=== PATIENT | female | born 1975 | race African-American/Black ===

== ENCOUNTER 2023-05-16 15:22 | Emergency (ER) | payer OTHER, SELFPAY ==
--- OUTSIDE RECORDS SUMMARY | 2023-05-16 15:29 | XMS REPORT | Continuity of Care Document ---
:1975 Author Organization [facility] t Address [address] [facility] [address] [place] [address] Care Team Providers Name Role Phone José Mcrae MD Primary Care Physician Alisson Pederson Attending Clinician Unavailable Danilo Solomon DO Attending Clinician Dee Tai MA Attending Clinician Unavailable Kenyatta Yan Attending Clinician Unavailable Analilia Medrano MD Attending Clinician Minh Boothe Attending Clinician Unavailable Jory Alcala MA Attending Clinician Unavailable Maryjane Zacarias CPhT Attending Clinician Unavailable Jihan Delaney MD Attending Clinician Priscila Avelar NP Attending Clinician Hilda Paul MA Attending Clinician Unavailable Gorge Rogers Attending Clinician Unavailable Vickey Jenkins Attending Clinician Merlyn Toledo MA Attending Clinician Unavailable Jaime Bryan Attending Clinician CHRIS Attending Clinician Unavailable Vivian Anne SANCHEZ Attending Clinician [phone] Zhou Parson Attending Clinician Unavailable Sunshine ZARAGOZA, Dahiana Attending Clinician Unavailable Yemi Desai MD Attending Clinician [phone] Colby Do Attending Clinician Unavailable HILDA HOSKINS Attending Clinician Unavailable TAMMI BENTLEY Attending Clinician Unavailable Hailey Mcfarlane MA Attending Clinician Unavailable Delilah Liu MD, I. Attending Clinician Nadia Allen LVN Attending Clinician Unavailable Benita Prather MA Attending Clinician Unavailable Carolin Siddiqui MA Attending Clinician Unavailable Paul Linares PA-C Attending Clinician Dagmar Sanchez Attending Clinician Unavailable Babar ZARAGOZA, Thomas Attending Clinician Unavailable BERNIE PAYTON Attending Clinician Unavailable MD АЛЕКСАНДР SIERRA Attending Clinician Unavailable MD BARBARA JUAREZ Attending Clinician Unavailable BARBARA JUAREZ Attending Clinician Unavailable GORGE VARNER Attending Clinician Unavailable Steph Marquez Attending Clinician Unavailable NAT GATES Attending Clinician Unavailable UNDEFINED Admitting Clinician Unavailable Jeremías Onofre Admitting Clinician Unavailable CHRIS Admitting Clinician Unavailable [facility] Admitting Clinician Unavailable ANKIT VILLALOBOS Admitting Clinician Unavailable MD ANKIT VILLALOBOS Admitting Clinician Unavailable Physician, No Primary or Family Admitting Clinician UnavailMD BARBARA Araujo Admitting Clinician Unavailable Steph Marquez Admitting Clinician Unavailable Payers Payer Name Policy Type Policy Number Effective Date Expiration Date S ource Problems Condition Condition Condition Status Onset Resolution Last Treating Co mments Source Name Details Category Date Date Treatment Clinician Date Anxiety Anxiety Disease Active Methodi about about 10-10 [facility] 00:00: Hospita 00 l Spina Spina Disease Active 2020-09 Overview: Method i bifida of bifida of 10-02 Formattin s t lumbar lumbar 00:00: g of this Hospita region region 00 note l without without might be hydrocepha hydrocepha different loli loli from the original. Found in testing. 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 Added automatic ally from request for surgery [id number] Superficia Superficia Disease Active Last M ethodi l femoral l femoral 10-15 Assessmen s t artery artery 00:00: t & Plan: Hospita occlusion occlusion 00 Formattin l g of this note might be different from the original. Doing well. Has some mild leg pain symptoms, but more neuropath ic. 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 06-02 headache, headache, 00:00: Hosp ina not not 00 l intractabl intractabl e e Gastritis Gastritis Disease Active Met hodi 06-02 st 00:00: Hospita 00 l Diabetes Diabetes Disease Active Metho di mellitus mellitus 06-12 st 00:00: Hospita 00 l Seizures Seizures Disease Active Metho di st Hospita l PTSD PTSD Disease Active Methodi (post-trau (post-trau [facility] Hospita stress stress l disorder) disorder) Hypertensi Hypertensi Disease Active M ethodi on on st Hospita l Hyperlipid Hyperlipid Disease Active M ethodi emia emia st Hospita l Depression Depression Disease Active M ethodi st Hospita l Bipolar Bipolar Disease Active Methodi affective affective st disorder, disorder, Hosp ina current current l episode episode manic with manic with psychotic psychotic symptoms symptoms Allergies, Adverse Reactions, Alerts Allergy Allergy Status Severity Reaction(s) Onset Inactive Treating Comm ents Source Name Type Date Date Clinician trazodon DA Active MO UNKNOWN 2021-09 [facility] 10[facility]23 [place] [facility] Trazodon Propensi Active Seizure 2021-09 Metho di e ty to 0-11 st adverse 00:00: Hospita reaction 00 l s to drug Divalpro Propensi Active Other (See Blood Me thodi ex ty to Comments) 10-[address] adverse 00:00: upHair Hospita reaction 00 falls out l s to drug divalpro DA Active [facility]11 [place] [facility] divalpro DA Active [facility] ex 10-11 [place] [facility] 00:[facility]: e [facility] No Known DA Active U [facility] Allergie 06-12 [place] [facility] Family History Family Member Diagnosis Comments Start Date Stop Date Source Natural [facility] mother Arthritis [facility] Natural son ADD / [facility] Natural brother ADD / ADHD [facility] Natural father ADD / ADHD [facility] father Arthritis [facility] Natural father Cancer [facility] Natural father Hypertension [facility] Social History Social Habit Start Date Stop Date Quantity Comments Source Gender identity 2020-10-19 Identifies as Method ist 12:17:18 female gender Hospital (finding) Sexual orientation 2020-10-19 Heterosexual Meth odist 12:17:18 (finding) Hospital Exposure to Yes [facility] SARS-CoV-2 (event) Hospit al History of Social 2023-05-11 2023-05-[address] function 00:00:00 00:00:00 Hospital Tobacco use and 2022-10-09 2022-10-09 Smokeless tobacco Me thodist exposure 00:00:00 00:00:00 non-user Hospital Alcohol intake 2016-09-12 2016-09-12 Current non-drinker [facility] 00[facility]00 [facility] (finding) Sex Assigned At [address] [facility] 00:[facility] Smoking Status Start Date Stop Date Source Never smoked tobacco [facility] Medications Ordered Filled Start Stop Current Ordering Indication Dosage Frequency Signature Comments Components Source Medication Medication Date Date Medication? Clinician (SIG) Name Name sulfamethox 2022- Yes 1{tbl} Q.5D Take 1 M ethodi azole-trime 8-18 08-[address] thoprim 00:00: 04:59 mouth 2 Hospit a (Bactrim 00 :00 (two) l DS) 800-160 times a mg per day for 7 tablet days. lisinopriL- 0 Yes 1{tbl} QD Take 1 Me thodi hydrochloro 8-[address] thiazide 00:00: mouth Hospita (PRINZIDE) 00 daily. l 20-12.5 mg per tablet potassium Yes MIX 15 ML Met hodi chloride 8-[address] (KAYCIEL) 00:00: OUNCES OF Hos mikhail 20 mEq/15 00 LIQUID AND l mL solution DRINK EVERY DAY montelukast Yes TAKE 1 Meth noel (SINGULAIR) 8-[address] 10 mg 00:00: EVERY Hospita tablet 00 NIGHT l potassium 2022-0 2022- No 20meq QD Take 15 mL Methodi chloride 7-21 08-12 ([address] (KAYCIEL) 00:00: 00:00 total) by Ho spita 20 mEq/15 00 :00 mouth l mL solution daily for 30 days. sucralfate Yes TAKE 1 Metho di (CARAFATE) 6-[address] 1 gram 00:00: FOUR TIMES Hospi ta tablet 00 DAILY l NEEDED FOR STOMACH ULCER PAIN potassium 2022-0 3- No 20meq QD TAKE 15 ML Methodi chloride 6-01 07-20 ([address] (KAYCIEL) 00:00: 00:00 TOTAL) BY Ho spita 20 mEq/15 00 :00 MOUTH l mL solution DAILY FOR 30 DAYS. potassium 2022-0 3- No 20meq QD TAKE 15 ML Methodi chloride 4-26 06-01 ([address] (KAYCIEL) 00:00: 00:00 TOTAL) BY Ho spita 20 mEq/15 00 :00 MOUTH l mL solution DAILY FOR 30 DAYS. HYDROcodone 2022-0 2022- [place] [id number] 1{tbl} Q6H Take 1 Methodi -acetaminop 4-24 05-[address] hen (NORCO) 00:00: 04:59 mouth Hosp ina 5-325 mg 00 :00 every 6 l per tablet (six) hours as needed for moderate pain for up to 28 days .chronic pain. Max Daily Amount: 4 tablets clonIDINE Yes TAKE 1 Method i (CATAPRES) 3-[address] 0.1 MG 00:00: EVERY Hospita tablet 00 NIGHT l clopidogreL 2022-0 Yes TAKE 1 Meth noel (PLAVIX) 75 3-[address] mg tablet 00:00: EVERY DAY Hos mikhail 00 l potassium 2022-0 2023- No 20meq QD TAKE 15 ML Methodi chloride 3-25 04-26 ([address] (KAYCIEL) 00:00: 00:00 TOTAL) BY Ho spita 20 mEq/15 00 :00 MOUTH l mL solution DAILY FOR 30 DAYS. simvastatin Yes TAKE 1 Meth noel (ZOCOR) 80 3-[address] MG tablet 00:00: EVERY Hospita 00 NIGHT l potassium 2022-0 2023- No 20meq QD Take 15 mL Methodi chloride 2-28 03-25 ([address] (KAYCIEL) 00:00: 00:00 total) by Ho spita 20 mEq/15 00 :00 mouth l mL solution daily for 30 days. omega Yes Take by Methodi 3-dha-epa-f 2-[address] demetrio oil 11:30: Hospita 1,000 mg 18 l (120 mg-180 mg) capsule cyanocobala 0 Yes 1000ug QD Take 1 Me thodi min 2-[address] (VITAMIN 11:30: (1,000 mcg Hos mikhail B-12) 1000 18 total) by l MCG tablet mouth daily. albuterol Yes 2{puff} Q6H Inhale 2 M ethodi (PROAIR 2-[address] HFA) 90 11:30: every 6 Hospita mcg/actuati 18 (six) l on inhaler hours as needed for wheezing. aspirin 0 Yes 81mg QD Take 1 Methodi (ECOTRIN) 2-13 tablet (81 st 81 MG 11:30: mg total) Hospita enteric 18 by mouth l coated daily. tablet dicyclomine 0 Yes 10mg Q.25D Take 1 Met hodi (BENTYL) 10 2-[address] MG capsule 11:30: (10 mg Hospi ta 18 total) by l mouth 4 (four) times a day before meals and nightly. docusate 2022-0 Yes 100mg Q.5D Take 1 Method i sodium 2-[address] (COLACE) 11:30: (100 mg Hospit a 100 MG 18 total) by l capsule mouth 2 (two) times a day. vit B comp 2022-0 Yes 1{tbl} QD Take 1 Met hodi no.3-folic- 2-[address] C-biotin 11:30: mouth Hospita (NEPHRO-VIT 18 daily. l E RX) 1-60-300 mg-mg-mcg tablet lurasidone 2022-0 Yes 40mg QD Take 40 mg M ethodi (LATUDA) 40 2-[address] mg tablet 11:30: daily. Hospit a 18 l OXcarbazepi 2022-0 Yes 300mg Q.5D Take 1 Met hodi ne 2-[address] (TRILEPTAL) 11:30: (300 mg Hos mikhail 300 MG 18 total) by l tablet mouth 2 (two) times a day. cholecalcif 2022-0 Yes 2000U QD Take 2 Met hodi yulissa, 2-[address] vitamin D3, 11:30: (2,000 Hosp ina 1,000 unit 18 Units l tablet total) by mouth daily. fluticasone 2022-0 Yes 1{puff} Q.5D Inhale 1 Methodi propion-migdalia 2-[address] meteroL 11:30: (two) Hospita (ADVAIR/ 18 times a l WIXELA day. INHUB) 250-50 mcg/dose DISKUS fluticasone 2022-0 Yes QD Inhale 1 Me thodi -umeclidin- 2-[address] vilanter 11:30: s daily. Hospi ta (Trelegy 18 l Ellipta) 200-62.5-25 mcg blister with device benzonatate 2022-0 Yes [id number] 200mg Q.[id number] Take 1 Methodi (TESSALON) 2-[id number] 200 MG 00:00: 3D (200 mg Hospita capsule 00 total) by l mouth 3 (three) times a day as needed for cough. lisinopriL- 3-0 2023- No 1{tbl} QD Take 1 M ethodi hydrochloro 11-[address] thiazide 00:00: 00:00 mouth Hospita (PRINZIDE) 00 :00 daily. l 20-12.5 mg per tablet fluconazole 2022- No 150mg Q72H Take 1 Me thodi (Diflucan) 11-06 04-[address] 150 MG 00:00: 00:00 (150 mg Hospita tablet 00 :00 total) by l mouth every third day. predniSONE 2022- No Take 2 Meth noel (DELTASONE) 11-06-[address] 20 mg 00:00: 05:59 (40 mg Hospita tablet 00 :00 total) by l mouth daily for 3 days, THEN 1.5 tablets (30 mg total) daily for 3 days, THEN 1 tablet (20 mg total) daily for 3 days, THEN 0.5 tablets (10 mg total) daily for 3 days. gabapentin Yes TAKE 1 Metho di (NEURONTIN) 2-[address] 300 mg 00:00: THREE Hospita capsule 00 TIMES l DAILY ipratropium Yes INHALE 1 Me thodi (ATROVENT) 1-[address] 0.02 % 00:00: NEBULIZER Hospit a nebulizer 00 EVERY 6 l solution HOURS NEEDED amoxicillin 2022- No [id number] 1{tbl} Q.5D Take 1 Methodi -pot 10-[address] clavulanate 00:00: 05:59 mouth 2 Ho spita (Augmentin) 00 :00 (two) l 875-125 mg times a per tablet day for 7 days. benzonatate 2022- No [id number] 200mg Q.[id number] Take 1 Methodi (TESSALON) 16 11-[id number] 200 MG 00:00: 00:00 3D (200 mg Hospita capsule 00 :00 total) by l mouth 3 (three) times a day as needed for cough. Vyvanse 70 Yes 70mg QD Take 1 Metho di mg capsule 1-[address] 00:00: (70 mg Hospita 00 total) by l mouth every morning. Ajovy 2021-09 Yes INJECT 1 Methodi Autoinjecto 2-[address] r 225 00:00: SUBCUTANEO Hospit a mg/1.5 mL 00 USLY ONCE l auto-inject A MONTH or sucralfate 2021-09- No TAKE 1 Meth noel (CARAFATE) 10-[address] 1 gram 00:00: 00:00 FOUR TIMES Hosp ina tablet 00 :00 DAILY l NEEDED FOR STOMACH ULCER PAIN clonIDINE 2021-09- No TAKE 1 Metho di (CATAPRES) 10-[address] 0.1 MG 00:00: 00:00 EVERY Hospita tablet 00 :00 NIGHT l dextroamphe 2021-09 Yes 20mg Q.5D Take 1 Meth noel tamine-amph -21 tablet (20 st etamine 00:00: mg total) Hospi ta (ADDERALL) 00 by mouth 2 l 20 mg (two) tablet times a day. fluticasone 2021-09 Yes [id number] USE 2 Methodi propionate 1-[address] (FLONASE) 00:00: EACH Hospita 50 00 NOSTRIL l mcg/actuati EVERY DAY on nasal spray clopidogreL 2021-09- No TAKE 1 Met hodi (PLAVIX) 75 10-[address] mg tablet 00:00: 00:00 EVERY DAY Ho spita 00 :00 l blood sugar 2021-09 Yes [id number] Test Blood Methodi diagnostic 0-[address] strips 00:00: Twice Hospita (Accu-Chek 00 Daily l Guide test strips) strip test strips lancets 2021-09 Yes [id number] Test Blood Methodi (Accu-Chek 0-[address] Softclix 00:00: Twice Hospita Lancets) 00 Daily l misc alcohol 2021-09 Yes [id number] Q.5D Apply 1 Me thodi swabs pads, 0-[address] medicated 00:00: topically Hos mikhail 00 2 (two) l times a day. blood-gluco 2021-09- No [id number] 1{kit} 1 kit once Methodi se meter 0-21 10-[address] (Accu-Chek 00:00: 04:59 dose. Hospi ta Guide 00 :00 l Glucose Meter) misc loratadine 2021- No 10mg QD Take 10 mg Methodi (Claritin) 06-[address] 10 mg 20:54: 00:00 daily. Hospita tablet 00 :00 l amoxicillin 2022- No [id number] 1{tbl} Q.5D Take 1 Methodi -pot 06-[address] clavulanate 00:00: 00:00 mouth 2 Ho spita (Augmentin) 00 :00 (two) l 875-125 mg times a per tablet day. benzonatate 2021- No [id number] 100mg Q.[id number] Take 1 Methodi (Tessalon 06-02 10-[id number] Perles) 100 00:00: 04:59 3D (100 mg Ho spita MG capsule 00 :00 total) by l mouth 3 (three) times a day as needed for cough for up to 30 days. montelukast 2022- No TAKE 1 Met hodi (SINGULAIR) 04-[address] 10 mg 00:00: 00:00 EVERY Hospita tablet 00 :00 NIGHT l fexofenadin Yes Method i e (MONO) 715 st 180 MG 00:00: Hospita tablet 00 l clopidogreL 2021- No TAKE 1 Met hodi (PLAVIX) 75 03-[address] mg tablet 00:00: 00:00 EVERY DAY Ho spita 00 :00 l sucralfate 2021- No TAKE 1 Meth noel (CARAFATE) 03-08- TABLET st 1 gram 00:00: 00:00 FOUR TIMES Hosp ina tablet 00 :00 DAILY l NEEDED FOR STOMACH ULCER PAIN clonIDINE 2021- No TAKE 1 Metho di (CATAPRES) 03-08- TABLET st 0.1 MG 00:00: 00:00 EVERY Hospita tablet 00 :00 NIGHT l lisinopriL- 2022- No 1{tbl} Q.5D Take 1 M ethodi hydrochloro 01-12-[address] thiazide 00:00: 00:00 mouth 2 Hospi ta (PRINZIDE) 00 :00 (two) l 20-12.5 mg times a per tablet day. gabapentin 2021-0 2022- No 300mg Q.[id number] Take 1 Methodi (NEURONTIN) 4-14 02-[id number] 300 mg 00:00: 00:00 3D (300 mg Hospita capsule 00 :00 total) by l mouth 3 (three) times a day. simvastatin 2021-0 2022- No TAKE 1 Met hodi (ZOCOR) 80 4-05 03-[address] MG tablet 00:00: 00:00 EVERY Hospit a 00 :00 NIGHT l clopidogreL 2021-0 Yes TAKE 1 Meth noel (PLAVIX) 75 1-[address] mg tablet 00:00: EVERY DAY Hos mikhail 00 l sucralfate 2021-0 Yes TAKE 1 Metho di (CARAFATE) 1-[address] 1 gram 00:00: FOUR TIMES Hospi ta tablet 00 DAILY l NEEDED FOR STOMACH ULCER PAIN promethazin 2021-0 Yes 1/2 to 1 Me thodi e 1-[address] (PHENERGAN) 00:00: every 6 Hos mikhail 25 MG 00 hours as l tablet needed for vomiting codeine-gua 2021-0 Yes 5mL Q.[id number] Take 5 mL Methodi ifenesin 1-24 [id number] by mouth 3 [address] (GUAIFENESI 00:00: 3D (three) Hos mikhail N AC) 00 times a l 10-100 mg/5 day as mL liquid needed for cough for up to 8 days .cough. promethazin 2021-0 Yes 1/2 to 1 Me thodi e 1-[address] (PHENERGAN) 00:00: every 6 Hos mikhail 25 MG 00 hours as l tablet needed for vomiting codeine-gua 2021-0 Yes 5mL Q.40022141 Take 5 mL Methodi ifenesin 1-24 [id number] by mouth 3 [address] (GUAIFENESI 00:00: 3D (three) Hos mikhail N AC) 00 times a l 10-100 mg/5 day as mL liquid needed for cough for up to 8 days .cough. benzonatate 2021-0 Yes 200mg Q.[id number] Take 1 Methodi (TESSALON) 1-[id number] 200 MG 00:00: 3D (200 mg Hospita capsule 00 total) by l mouth 3 (three) times a day as needed for cough. dexamethaso 2022- No 2mg QD Take 1 Met hodi ne 10-17 02-13 tablet (2 st (DECADRON) 00:00: 00:00 mg total) H ospita 2 MG tablet 00 :00 by mouth l daily with breakfast for 10 days. benzonatate No 200mg Q.[id number] Take 1 Methodi (TESSALON) 10-17-[id number] 200 MG 00:00: 00:00 3D (200 mg Hospita capsule 00 :00 total) by l mouth 3 (three) times a day as needed for cough. dexamethaso 2021- No 2mg QD Take 1 Met hodi ne 10-17 02-04 tablet (2 st (DECADRON) 00:00: 05:59 mg total) H ospita 2 MG tablet 00 :00 by mouth l daily with breakfast for 10 days. budesonide- 2021- No 2{puff} Q.5D Inhale 2 Methodi formoteroL -17 -[address] (SYMBICORT) 11:40: 00:00 (two) Hosp ina 80-4.5 01 :00 times a l mcg/actuati day. on inhaler amoxicillin 2021- No 1{tbl} Q.5D Take 1 M ethodi -pot 17 -[address] clavulanate 00:00: 05:59 mouth 2 Ho spita (AUGMENTIN) 00 :00 (two) l 875-125 mg times a per tablet day for 7 days. cholecalcif 2020-09 Yes 2000U QD Take 2,000 Methodi yulissa, 1-[address] vitamin D3, 15:06: mouth Hospi ta 1,000 unit 10 daily. l tablet fluticasone 2020-09 Yes 1{puff} Q.5D Inhale 1 Methodi propion-migdalia 1-[address] meteroL 15:06: (two) Hospita (ADVAIR/ 10 times a l WIXELA day. INHUB) 250-50 mcg/dose DISKUS omega 2020-09 Yes Take by Methodi 3-dha-epa-f 10-[address] demetrio oil 15:05: Hospita (FISH OIL) 03 l 1,000 mg (120 mg-180 mg) capsule loratadine 2020-09 Yes 10mg QD Take 10 mg M ethodi (Claritin) 10-[address] 10 mg 15:05: daily. Hospita tablet 03 l lurasidone 2020-09 Yes 40mg QD Take 40 mg M ethodi (LATUDA) 40 10-[address] mg tablet 15:05: daily. Hospit a 03 l OXcarbazepi 2020-09 Yes 300mg Q.5D Take 300 M ethodi ne 1-[address] (TRILEPTAL) 15:05: mouth 2 Hos mikhail 300 MG 03 (two) l tablet times a day. SUMAtriptan 2020-09 No 50mg Take 50 mg Methodi (IMITREX) 10-[address] 50 MG 15:05: 00:00 once as Hospita tablet 02 :00 needed for l migraine. May repeat in 2 hours if unresolved . Do not exceed 200 mg in 24 hours. levETIRAcet 2020-09 No 1000mg Q.5D Take 1,000 Methodi am (KEPPRA) 10-[address] 1000 MG 15:03: 00:00 mouth 2 Hospit a tablet 44 :00 (two) l times a day. cyanocobala 2020-09 Yes 1000ug QD Take 1,000 Methodi min 1-[address] (VITAMIN 15:03: mouth Hospita B-12) 1000 42 daily. l MCG tablet albuterol 2020-09 Yes 2{puff} Q6H Inhale 2 M ethodi (PROAIR - puffs st HFA) 90 15:03: every 6 Hospita mcg/actuati 42 (six) l on inhaler hours as needed for wheezing. aspirin 2020-09 Yes 81mg QD Take 81 mg Meth nole (ECOTRIN) 10-[address] 81 MG 15:03: daily. Hospita enteric 42 l coated tablet dicyclomine 2020-09 Yes 10mg Q.25D Take 10 mg [facility] (BENTYL) 10 1-[address] MG capsule 15:03: (four) Hospi ta 42 times a l day before meals and nightly. docusate 2020-09 Yes 100mg Q.5D Take 100 Meth noel sodium 1-[address] (COLACE) 15:03: mouth 2 Hospit a 100 MG 42 (two) l capsule times a day. gabapentin 2020-09- No 300mg Q.[id number] Take 300 [facility] (NEURONTIN) 10-[id number] 300 mg 13:49: 00:00 3D mouth 3 Hospita capsule 59 :00 (three) l times a day. 1 in the morning and 2 in the evening lisinopriL- 2020-09 Yes TAKE 1 Meth noel hydrochloro -[address] thiazide 00:00: EVERY DAY Hosp ina (PRINZIDE) 00 l 20-12.5 mg per tablet gabapentin 2020-09 Yes TAKE 1 Metho di (NEURONTIN) 10-[address] 300 mg 00:00: THREE Hospita capsule 00 TIMES l DAILY fluticasone 2020-09 Yes [id number] USE 2 [facility] propionate [address] (FLONASE) 00:00: EACH Hospita 50 00 NOSTRIL l mcg/actuati EVERY DAY on nasal spray simvastatin 2020-09 Yes TAKE 1 Meth noel (ZOCOR) 80 10-[address] MG tablet 00:00: MOUTH Hospita 00 EVERY l NIGHT fluticasone 2020-09- No [id number] USE 2 [facility] propionate 10-[address] (FLONASE) 00:00: 00:00 EACH Hospita 50 00 :00 NOSTRIL l mcg/actuati EVERY DAY on nasal spray sucralfate 2020-09- No TAKE 1 Meth noel (CARAFATE) 10-02 TABLET (1 st 1 gram 00:00: 00:00 G TOTAL) Hospit a tablet 00 :00 BY MOUTH 4 l TIMES A DAY NEEDED (STOMACH ULCER PAIN) clopidogreL 2020-09- No TAKE 1 Met hodi (PLAVIX) 75 10-[address] mg tablet 00:00: 00:00 EVERY DAY Ho spita 00 :00 l montelukast 2020-09- No 10mg QD Take 10 mg [facility] (SINGULAIR) 09-[address] 10 mg 13:45: 00:00 nightly. Hospita tablet 29 :00 l montelukast 2020-09 Yes 10mg QD Take 1 Meth noel (SINGULAIR) 09-24 tablet (10 st 10 mg 00:00: mg total) Hospita tablet 00 by mouth l nightly. sucralfate 2020-09- No 1g Q.25D Take 1 Met hodi (CARAFATE) 018 08-02 tablet (1 st 1 gram 00:00: 00:00 g total) Hospit a tablet 00 :00 by mouth 4 l (four) times a day as needed (stomach ulcer pain) for up to 90 days. clopidogreL 2020- No 75mg QD Take 1 Met hodi (PLAVIX) 75 05-25 tablet (75 s t mg tablet 00:00: 00:00 mg total) Ho spita 00 :00 by mouth l daily. vit B comp Yes 1{tbl} QD Take 1 Met hodi no.3-folic- 05-[address] C-biotin 16:25: mouth Hospita (NEPHRO-VIT 37 daily. l E RX) 1-60-300 mg-mg-mcg tablet doxycycline 2020- No 100mg Q.5D Take 1 Me [facility] (VIBRAMYCIN 05-[address] ) 100 MG 00:00: 04:59 (100 mg Hospi ta capsule 00 :00 total) by l mouth 2 (two) times a day for 10 days. benzonatate 2020- No 100mg Q8H Take 1 Me th[facility] (TESSALON) 05-[address] 100 MG 00:00: 04:59 (100 mg Hospita capsule 00 :00 total) by l mouth every 8 (eight) hours for 7 days. methylPREDN 2020- No follow Met hodi ISolone 05-[address] (MEDROL 00:00: 04:59 directions Hos mikhail DOSEPAK) 4 00 :00 l mg tablet sucralfate 2020- No 1g Q.25D Take 1 Met hodi (CARAFATE) 04-28 10-18 tablet (1 st 1 gram 00:00: 00:00 g total) Hospit a tablet 00 :00 by mouth 4 l (four) times a day as needed (stomach ulcer pain) for up to 90 days. propranoloL 2020- No 10mg Q.5D Take 10 mg Methodi (INDERAL) 03-[address] 10 MG 13:05: 00:00 (two) Hospita tablet 09 :00 times a l day. cetirizine 2020- No 10mg QD Take 10 mg [facility] (ZyrTEC) 10 03-[address] MG tablet 13:04: 00:00 daily. Hospi ta 55 :00 l metFORMIN 2020- No 500mg Q.5D Take 500 Me [facility] (GLUCOPHAGE 03-[address] ) 500 mg 13:04: 00:00 mouth 2 Hospi ta tablet 12 :00 (two) l times a day with meals. multivitami 2020- No 1{tbl} QD Take 1 M ethodi n with 03-[address] minerals 13:04: 00:00 mouth Hospita tablet 06 :00 daily. l ramelteon 2020- No 8mg QD Take 8 mg Me [facility] (ROZEREM) 8 03-[address] mg tablet 13:04: 00:00 nightly. Hos mikhail 05 :00 l hydrOXYzine 2020- No 50mg Q.[id number] Take 50 mg [facility] (ATARAX) 50 03-22 [id number] by mouth [address] MG tablet 11:44: 00:00 3D (three) Hosp ina 15 :00 times a l day as needed. lurasidone 2020- No 20mg Q.5D Take 20 mg [facility] (LATUDA) 40 03-22 by mouth 2 s t mg tablet 09:02: 00:00 (two) Hospit a 46 :00 times a l day. naproxen 2020- No 500mg Take 500 Met hodi (NAPROSYN) 03-08 06-[address] 500 MG 09:15: 00:00 mouth as Hospit a tablet 46 :00 needed. l SUMAtriptan 2020- No USE 1 Meth noel (IMITREX) 03-[address] 20 00:00: 00:00 DAILY [facility]ospita mg/actuatio 00 :00 NEEDED FOR l n nasal MIGRAINE. spray DO NOT USE MORE THAN 9 TIMES A MONTH sucralfate 2020- No TAKE 1 [facility] (CARAFATE) 02-[address] 1 gram 00:00: 00:00 MOUTH FOUR Hosp ina tablet 00 :00 TIMES A l DAY fluticasone 2020- No [id number] 100ug QD 2 sprays [facility] propionate 02-25 ([address] (FLONASE) 00:00: 00:00 total) by Ho spita 50 00 :00 Each Nare l mcg/actuati route on nasal daily. spray simvastatin 80mg QD Take 1 [facility] (ZOCOR) 80 02-16 tablet (80 st MG tablet 00:00: 00:00 mg total) [facility] 00 :00 by mouth l nightly. gabapentin 2020- 300mg Q.[id number] Take 1 [facility] (NEURONTIN) 02-15- [id number] capsule st 300 mg 00:00: 04:59 3D (300 mg Hospita capsule 00 :00 total) by l mouth 3 (three) times a day for 30 days. gabapentin 300mg Q.[id number] TAKE 1 [facility] (NEURONTIN) 02-09 05-[id number] 300 mg 00:00: 00:00 3D (300 MG Hospita capsule 00 :00 TOTAL) BY l MOUTH 3 (THREE) TIMES A DAY FOR 30 DAYS. clopidogreL 75mg QD Take 1 [facility] (PLAVIX) 75 02-08- tablet (75 s t mg tablet 00:00: 04:59 mg total) [facility]ita 00 :00 by mouth l daily for 90 days. simvastatin 2020- No TAKE 1 [facility] (ZOCOR) 80 01-27- TABLET BY st MG tablet 00:00: 00:00 MOUTH Hospit a 00 :00 EVERY DAY l AT NIGHT benzonatate 2020- No 100mg Q.[id number] Take 1 [facility] (Tessalon 5-06 05-[id number] Perles) 100 00:00: 04:59 3D (100 mg Ho spita MG capsule 00 :00 total) by l mouth 3 (three) times a day as needed for cough for up to 10 days. amoxicillin 2020- No [id number] 1{tbl} Q.5D Take 1 [facility] -pot 5- 05-[address] clavulanate 00:00: 04:59 mouth 2 Ho spita (AUGMENTIN) 00 :00 (two) l 875-125 mg times a per tablet day for 7 days. potassium Yes TAKE 15ML [facility] chloride 4-[address] (KAYCIEL) 00:00: TWICE A Hospi ta 20 mEq/15 00 DAY l mL solution potassium 2022- No TAKE 15ML Me [facility]odi chloride 4-15 02-[address] (KAYCIEL) 00:00: 00:00 TWICE A Hosp ina 20 mEq/15 00 :00 DAY l mL solution potassium 2020- No TAKE 15ML [facility] chloride 3-31 04-[address] (KAYCIEL) 00:00: 00:00 TWICE A [facility]osp ina 20 mEq/15 00 :00 DAY l mL solution sucralfate 2020- No TAKE 1 [facility] (CARAFATE) 3-30 06-[address] 1 gram 00:00: 00:00 MOUTH FOUR [facility]osp ina tablet 00 :00 TIMES A l DAY potassium 2020- No 20meq Q.5D Take 15 mL [facility] chloride 3-19 03-31 ([address] (KAYCIEL) 00:00: 00:00 total) by Ho spita 20 mEq/15 00 :00 mouth 2 l mL solution (two) times a day. methscopola 2020- No 5mg QD Take 5 mg [facility] mine 3-08 03-[address] (PAMINE 10:59: 00:00 nightly. Hospi ta FORTE) 5 MG 18 :00 l tablet potassium No 10meq QD Take 10 [facility] chloride 3-08 03-[address] (K-DUR) 10 10:59: 00:00 mouth Hospi ta MEQ CR 14 :00 daily. l tablet methscopola No 5mg QD Take 1 [facility] mine 3-08 -29 tablet (5 st (PAMINE 00:00: 00:00 mg total) Hosp ina FORTE) 5 MG 00 :00 by mouth l tablet nightly. potassium No 20meq Take 20 [facility] chloride 3-08 03-[address] (KLOR-CON) 00:00: 05:59 mouth once Hospita 20 mEq 00 :00 for 1 l packet dose. clopidogreL No 75mg QD Take 1 [facility] (PLAVIX) 75 11-18 05-18 tablet (75 s t mg tablet 00:00: 00:00 mg total) [facility] spita 00 :00 by mouth l daily for 90 days. gabapentin No 300mg Q.[id number] Take 1 [facility] (NEURONTIN) 11-02-[id number] 300 mg 00:00: 00:00 3D (300 mg Hospita capsule 00 :00 total) by l mouth 3 (three) times a day for 30 days. clopidogreL No 75mg QD Take 1 [facility] (PLAVIX) 75 11-02-25 tablet (75 s t mg tablet 00:00: 00:00 mg total) [facility]ita 00 :00 by mouth l daily for 30 days. montelukast No [id number] TAKE 1 [facility] (SINGULAIR) 10-24- TABLET BY st 10 mg 00:00: 00:00 MOUTH Hospita tablet 00 :00 EVERY DAY l AT NIGHT magnesium No 500mg QD Take 2 [facility] oxide 250 10-21-[address] mg 00:00: 00:00 (500 mg Hospita magnesium 00 :00 total) by l tablet mouth daily. clopidogreL No 75mg QD Take 1 [facility] (PLAVIX) 75 1-26 02-09 tablet (75 s t mg tablet 00:00: 00:00 mg total) [facility] 00 :00 by mouth l daily for 30 days. gabapentin No 300mg Q.[id number] Take 1 [facility] (NEURONTIN) 25 02-[id number] 300 mg 00:00: 00:00 3D (300 mg Hospita capsule 00 :00 total) by l mouth 3 (three) times a day for 30 days. simvastatin No 80mg QD Take 1 [facility] (ZOCOR) 80 16 05-06 tablet (80 st MG tablet 00:00: 00:00 mg total) [facility] 00 :00 by mouth l nightly. levonorgest No 1{tbl} QD Take 1 M [facility]i rel-ethinyl 15 10-[address] estradiol 00:00: 05:59 mouth Hospit a (ENPRESSE) 00 :00 daily. l 50-30 (6)/75-40 (5)/125-30( 10) per tablet lisinopriL- 2020- No 1{tbl} QD Take 1 M [facility]i hydrochloro 10-[address] thiazide 00:00: 00:00 mouth Hospita (PRINZIDE) 00 :00 daily. l 20-12.5 mg per tablet sucralfate 2020- No 1g Q.25D Take 1 [facility] (CARAFATE) 15 03-30 tablet (1 st 1 gram 00:00: 00:00 g total) Hospit a tablet 00 :00 by mouth 4 l (four) times a day. sertraline 2019-09 Yes 100mg QD Take 1 [facility] (ZOLOFT) 1-[address] 100 MG 00:00: (100 mg Hospita tablet 00 total) by l mouth daily. sertraline 2019-09 Yes 100mg QD Take 1 [facility] (ZOLOFT) 1-[address] 100 MG 00:00: (100 mg Hospita tablet 00 total) by l mouth daily. metFORMIN 2019-09 No 500mg Q.5D Take 0.5 Me [facility] (GLUCOPHAGE 10-04 06-[address] ) 1,000 mg 00:00: 00:00 (500 mg Hos mikhail tablet 00 :00 total) by l mouth 2 (two) times a day with meals. SUMAtriptan 2020- USE NASAL [facility] (IMITREX) 04-[address] 20 00:00: 00:00 DAILY [facility]ospita mg/actuatio 00 :00 NEEDED FOR l n nasal MIGRAINE. spray DO NOT USE MORE THAN 9 TIMES A MONTH pantoprazol Yes [id number] 40mg QD Take 1 M ethodi e - tablet (40 st (PROTONIX) 00:00: mg total) Ho spita 40 MG EC 00 by mouth l tablet daily. pantoprazol Yes [id number] 40mg QD Take 1 M ethodi e 06-02 tablet (40 st (PROTONIX) 00:00: mg total) [facility] spita 40 MG EC 00 by mouth l tablet daily. fluticasone 2020- No [id number] 100ug QD 2 sprays [facility] propionate 06-02 ([address] (FLONASE) 00:00: 00:00 total) by Ho spita 50 00 :00 Each Nare l mcg/actuati route on nasal daily. spray tretinoin Yes QD Apply [facility] (RETIN-A) 06-[address] 0.1 % cream 00:00: nightly. [facility] spita 00 l tretinoin Yes QD Apply [facility] (RETIN-A) 06-[address] 0.1 % cream 00:00: nightly. [facility] spita 00 l ondansetron 2021- No [id number] 4mg Q8H Take 1 [facility] (ZOFRAN) 4 06-12 tablet (4 st MG tablet 00:00: 00:00 mg total) [facility]ita 00 :00 by mouth l every 8 (eight) hours as needed for nausea or vomiting. methscopola 2015-09 Yes 2.5mg Take 2.[address] [facility] 2-20 [facility] (PAMINE) 04:35: mouth 3 Medica l 2.5 mg Tab 06 (three) Center tablet times daily before meals. metFORMIN 2015-09 Yes 500mg Take [address] [facility] [address] (GLUCOPHAGE 2-20 mg by [facility] ) 500 MG 04:35: mouth 2 Medica l tablet 06 (two) Center times daily with breakfast and dinner. dicyclomine 2015-09 Yes 10mg Q.[id number] Take [address] [facility] (BENTYL) 10 2-20 [id number] by mouth 3 [facility] capsule 04:35: 3D (three) Medi richard 06 times Center daily. minocycline 2016 Yes 100mg Q.5D Take [address] (DYNACIN) 2-20 mg by [facility] 100 MG 04:35: mouth 2 Medical tablet 06 (two) Center times daily. mometasone 2015-09 Yes 2{spray QD [address] [facility] (NASONEX) 2-20 } by Nasal [facility] 50 04:35: route Medical mcg/actuati 06 daily. Center on nasal spray gabapentin 2015-09 Yes 300mg Q.[id number] Take [address] (NEURONTIN) 2-20 [id number] mg by L ukes 300 MG 04:35: 3D mouth 3 Medical capsule 06 (three) Center times daily. HYDROcodone 2015-09 Yes 1{tbl} Take [address] -acetaminop 2-20 tablet by Rosina es hen (NORCO 04:35: mouth Medica l 10-325) 06 every 6 Center 10-325 mg (six) per tablet hours as needed for Pain. OLANZapine 2015-09 Yes 20mg QD Take [address] (ZYPREXA) 2-20 by mouth [facility] 20 MG 04:35: nightly. Medical tablet 06 Center pantoprazol 2015-09 Yes 20mg QD Take [address] e 2-20 by mouth [facility] (PROTONIX) 04:35: daily. Medic al 20 MG 06 Center tablet montelukast 2015-09 Yes 10mg QD Take [address] (SINGULAIR) 2-20 by mouth Luke s 10 mg 04:35: nightly. Medical tablet 06 Center hydrOXYzine 2015-09 Yes 50mg Take [address] [address] (VISTARIL) 2-20 by mouth 3 Rosina es 50 MG 04:35: (three) Medical capsule 06 times Center daily as needed for Itching. lisinopril- 2015-09 Yes 1{tbl} Q.5D Take [address] hydrochloro 2-20 tablet by Rosina es thiazide 04:35: mouth 2 Medica l (PRINZIDE,Z 06 (two) Center ESTORETIC) times 20-25 mg daily. per tablet simvastatin 2015-09 Yes 40mg QD Take [address] (ZOCOR) 40 2-20 by mouth [facility] MG tablet 04:35: nightly. Medi richard 06 Center sertraline 2015-09 Yes 200mg QD Take [address] (ZOLOFT) 2-20 mg by [facility] 100 MG 04:35: mouth Medical tablet 06 daily. [facility] sulfamethox 2015-09 Yes 1{tbl} QD Take [address] azole-trime 2-20 tablet by Rosina es thoprim 04:35: mouth Medical (BACTRIM 06 daily. [facility] DS) 800-160 mg per tablet dextroamphe 2015-09 Yes 30mg QD Take [address] tamine-amph 2-20 by mouth Luke s etamine 04:35: daily. Medical (AMPHETAMIN 06 [facility] E-DEXTROAMP HETAMINE) 30 mg Tab dextroamphe 2015-09 Yes 20mg Take [address] tamine-amph 2-20 by mouth. Rosina es etamine 04:35: Medical (AMPHETAMIN 06 [facility] E-DEXTROAMP HETAMINE) 20 mg Tab tablet divalproex 2015-09 Yes 500mg Q.[id number] Take [address] (DEPAKOTE) 2-20 [id number] mg by Joyce kes 500 MG EC 04:35: 3D mouth 3 Medic al tablet 06 (three) Center times daily. rizatriptan 2015-09 Yes 10mg Take [address] (MAXALT) 10 2-20 by mouth Luke s MG tablet 04:35: once as Medic al 06 needed for Center Headaches Do NOT exceed thirty (30) mg in 24 hours. . metFORMIN 2015-09 Yes 500mg Take [address] (GLUCOPHAGE 2-20 mg by [facility] ) 500 MG 04:35: mouth 2 Medica l tablet 06 (two) Center times daily with breakfast and dinner. dicyclomine 2015-09 Yes 10mg Q.09521495 Take [address] (BENTYL) 10 2-20 [id number] by mouth 3 [facility] MG capsule 04:35: 3D (three) Medi richard 06 times Center daily. minocycline 2015-09 Yes 100mg Q.5D Take [address] (DYNACIN) 2-20 mg by [facility] 100 MG 04:35: mouth 2 Medical tablet 06 (two) Center times daily. mometasone 2015-09 Yes 2{spray QD [address] (NASONEX) 2-20 } by Nasal [facility] 50 04:35: route Medical mcg/actuati 06 daily. Center on nasal spray gabapentin 2015-09 Yes 300mg Q.[id number] Take [address] (NEURONTIN) 2-20 [id number] mg by L ukes 300 MG 04:35: 3D mouth 3 Medical capsule 06 (three) Center times daily. HYDROcodone 2015-09 Yes 1{tbl} Take [address] -acetaminop 2-20 tablet by Rosina es hen (NORCO 04:35: mouth Medica l 10-325) 06 every 6 Center 10-325 mg (six) per tablet hours as needed for Pain. OLANZapine 2015-09 Yes 20mg QD Take [address] (ZYPREXA) 2-20 by mouth [facility] 20 MG 04:35: nightly. Medical tablet 06 Center pantoprazol 2015-09 Yes 20mg QD Take [address] e 2-20 by mouth [facility] (PROTONIX) 04:35: daily. Medic al 20 MG 06 Center tablet montelukast 2015-09 Yes 10mg QD Take [address] (SINGULAIR) 2-20 by mouth Luke s 10 mg 04:35: nightly. Medical tablet 06 Center hydrOXYzine 2015-09 Yes 50mg Take [address] (VISTARIL) 2-20 by mouth 3 Rosina es 50 MG 04:35: (three) Medical capsule 06 times Center daily as needed for Itching. lisinopril- 2015-09 Yes 1{tbl} Q.5D Take [address] hydrochloro 2-20 tablet by Rosina es thiazide 04:35: mouth 2 Medica l (PRINZIDE,Z 06 (two) Center ESTORETIC) times 20-25 mg daily. per tablet simvastatin 2015-09 Yes 40mg QD Take [address] (ZOCOR) 40 2-20 by mouth [facility] MG tablet 04:35: nightly. Medi richard 06 Center sertraline 2015-09 Yes 200mg QD Take [address] (ZOLOFT) 2-20 mg by [facility] 100 MG 04:35: mouth Medical tablet 06 daily. [facility] sulfamethox 2015-09 Yes 1{tbl} QD Take [address] azole-trime 2-20 tablet by Rosina es thoprim 04:35: mouth Medical (BACTRIM 06 daily. [facility] DS) 800-160 mg per tablet dextroamphe 2015-09 Yes 30mg QD Take [address] tamine-amph 2-20 by mouth Luke s etamine 04:35: daily. Medical (AMPHETAMIN 06 [facility] E-DEXTROAMP HETAMINE) 30 mg Tab dextroamphe 2015-09 Yes 20mg Take [address] tamine-amph 2-20 by mouth. Rosina es etamine 04:35: Medical (AMPHETAMIN 06 [facility] E-DEXTROAMP HETAMINE) 20 mg Tab tablet divalproex 2015-09 Yes 500mg Q.[id number] Take [address] (DEPAKOTE) 2-20 [id number] mg by Joyce kes 500 MG EC 04:35: 3D mouth 3 Medic al tablet 06 (three) Center times daily. rizatriptan 2015-09 Yes 10mg Take [address] (MAXALT) 10 2-20 by mouth Luke s MG tablet 04:35: once as Medic al 06 needed for Center Headaches Do NOT exceed thirty (30) mg in 24 hours. . methscopola 2015-09 Yes 2.5mg Take 2.[address] mine 2-20 mg by [facility] (PAMINE) 04:35: mouth 3 Medica l 2.5 mg Tab 06 (three) Center tablet times daily before meals. Immunizations Ordered Immunization Filled Immunization Date Status Commen ts Source Name Name Haztucesta >12 YR 2022-06-24 Completed [facility] COVID-19 MRNA 00:00:00 Hospital BIVALENT VACCINATION FLUZONE QUAD PF 2022-06-24 Completed [facility] 00:00:00 Hospital PFIZER READY TO USE 2022-02-06 Completed [facility] COVID-19 MRNA 00:00:00 Hospital VACCINATION PFIZER COVID-19 MRNA 2021-09-30 Completed [facility] VACCINATION 00:00:00 Hospital Gardasil-9 2021-08-02 Completed [facility] 00:00:00 Hospital Gardasil-9 2021-08-02 Completed [facility] 00:00:00 Hospital FLUBLOK QUAD PF 2019-06-02 Completed [facility] 00:00:00 [facility] JORGE GONZALES 2019-06-02 Completed [facility] 00:00:00 [facility] JORGE GONZALES 2018-06-12 Completed [facility] 00:00:00 [facility] JORGE GONZALES 2018-06-12 Completed [facility] 00:00:00 Hospital Vital Signs Vital Name Observation Time Observation Value Comments Source Systolic blood 2023-04-20 10:20:00 138 mm[Hg] [facility] pressure Diastolic blood 2023-04-20 10:20:00 86 mm[facility]Hg] [facility] pressure Heart rate 2023-04-20 10:20:00 74 /min [facility] Body temperature 2023-04-20 10:20:00 36.39 Bethanie [facility] Respiratory rate 2023-04-20 10:20:00 22 /min [facility] Body height 2023-04-20 10:20:00 182.9 cm [facility] Body weight 2023-04-20 10:20:00 110.6 kg [facility] BMI 2023-04-20 10:20:00 33.07 kg/m2 [facility] Oxygen saturation in 2023-04-20 10:20:00 100 /min [facility] Arterial blood by Pulse oximetry Body height 2021-09-13 21:05:00 182.9 cm [facility] Body weight 2021-09-13 21:05:00 122.925 kg [facility] BMI 2021-09-13 21:05:00 36.75 kg/m2 [facility] Systolic blood 2021-08-02 21:01:00 132 mm[Hg] [facility] pressure Diastolic blood 2021-08-02 21:01:00 86 mm[Hg] [facility] Hospital pressure Heart rate 2021-08-02 21:01:00 78 /min [facility] Respiratory rate 2021-08-02 21:01:00 16 /min [facility] Oxygen saturation in 2021-08-02 21:01:00 99 /min [facility] Arterial blood by Pulse oximetry Body temperature 2021-05-16 18:34:10 36.17 Bethanie [facility] Procedures Procedure Date / Time Performing Clinician Source Performed CBC HEMOGRAM 2022-11-06 18:27:00 Danilo Solomon [facility] COMPREHENSIVE METABOLIC 2022-11-06 18:27:00 [facility] PANEL LIPID PANEL 2022-11-06 18:27:00 [facility] WITH REFLEX TO FREE 2022-11-06 18:27:00 [facility] T4 MAGNESIUM LEVEL 2022-11-06 18:27:00 Danilo Solomon spital ACUTE VIRAL HEPATITIS 2022-11-06 18:27:00 [facility] PANEL (HAV, HBV, HCV) US DUPLEX VENOUS LOWER 2022-07-17 16:00:00 [facility] EXTREMITY REFLUX BILATERAL US DUPLEX ARTERIAL LOWER 2022-07-04 17:09:00 [facility] EXTREMITY BILATERAL XR CHEST 2 VW 2022-06-16 18:44:28 Danilo Solomon [facility] 2022-06-16 18:21:00 [facility] PANEL TSH WITH REFLEX TO FREE 2022-06-16 18:21:00 [facility] T4 HIV 1/2 ANTIGEN/ANTIBODY, 2022-06-16 18:21[facility], WITH REFLEXES RPR WITH REFLEX TO TITER 2022-06-16 18:21:00 [facility] CBC WITH PLATELET AND 2022-06-16 18:21[facility] RATE 2022-06-16 18:21:00 [facility] US DUPLEX ARTERIAL LOWER 2021-09-13 14:20:00 [facility] EXTREMITY BILATERAL CBC HEMOGRAM 2021-08-02 06:00:00 Danilo Solomon spital COMPREHENSIVE METABOLIC 2021-08-02 06:00:00 Juanito [facility] PANEL MAGNESIUM LEVEL 2021-08-02 06:00:00 Danilo Solomon spital RPR WITH REFLEX TO TITER 2021-08-02 06:00:00 Danilo Solomon [facility] HC COMPLETE BLD COUNT 2021-05-16 21:34:00 Honorio Austin [facility] W/AUTO DIFF COMPREHENSIVE METABOLIC 2021-05-16 21:34:00 Honorio Austin [facility] PANEL TROPONIN 2021-05-16 21:34:00 Honorio [facility] o[facility]ital B NATRIURETIC PEPTIDE 2021-05-16 21:34:00 Honorio Austin [facility] ESTIMATED GFR 2021-05-16 21:34:00 Honorio [facility] ospital XR CHEST 1 VW 2021-05-16 20:33:19 Honorio [facility] ospital ECG ED PRELIMINARY 2021-05-16 20:14:48 Honorio Austin [facility] INTERPRETATION MAMMO BREAST SCREEN 2021-04-05 15:24:04 [facility] TOMOSYNTHESIS BILATERAL OCCULT BLOOD, STOOL 2021-03-17 14:42:00 [facility] HELICOBACTER PYLORI 2021-03-17 14:42:00 [facility] ANTIGEN, STOOL HELICOBACTER PYLORI 2021-03-03 17:03:00 [facility] ANTIGEN, STOOL CANCER ANTIGEN 125 2021-03-03 16:07:00 [facility]SVAGINAL 2021-03-03 15:39:23 [facility] PELVIC TRANSVAGINAL 2020-12-08 18:20:00 [facility] PELVIC TRANSABDOMINAL 2020-12-08 18:20:00 Danilo Solomon [facility] US DUPLEX ARTERIAL LOWER 2020-11-29 20:46:00 Jihan Delaney [facility] EXTREMITY RIGHT CBC HEMOGRAM 2020-11-29 17:09:00 Danilo Solomon Ho spital COMPREHENSIVE METABOLIC 2020-11-29 17:09:00 Juanito [facility] PANEL LIPID PANEL 2020-11-29 17:09:00 Danilo Solomon spital HEMOGLOBIN A1C 2020-11-29 17:09:00 Danilo Solomon Ho spital TROPONIN 2020-11-19 02:22:00 [facility] CT HEAD WO CONTRAST 2020-11-19 02:21:06 [facility] CT ABDOMEN PELVIS W 2020-11-19 02:19:01 [facility] CONTRAST ECG 12-LEAD 2020-11-19 01:33:31 [facility] URINE CULTURE 2020-11-19 01:16:00 [facility] HC COMPLETE BLD COUNT 2020-11-19 01:16:00 [facility] W/AUTO DIFF COMPREHENSIVE METABOLIC 2020-11-19 01:16:00 [facility] PANEL PROTHROMBIN TIME WITH INR 2020-11-19 01:16:00 [facility] PARTIAL THROMBOPLASTIN 2020-11-19 01:16:00 [facility] TIME (PTT) ESTIMATED GFR 2020-11-19 01:16:00 [facility] LIPASE LEVEL 2020-11-19 01:16:00 [facility] URINALYSIS SCREEN AND 2020-11-19 01:16:00 [facility] MICROSCOPY, WITH REFLEX TO CULTURE TROPONIN 2020-11-19 01:16:00 [facility] B NATRIURETIC PEPTIDE 2020-11-19 01:16:00 [facility] HCG QUALITATIVE, URINE 2020-11-19 01:16:00 [facility] SCREEN US DUPLEX VENOUS LOWER 2020-11-19 00:26:58 [facility] EXTREMITY BILATERAL ECG ED PRELIMINARY 2020-11-18 23:11:01 [facility] INTERPRETATION Plan of Care Planned Activity Planned Date Details Comments Source Future Scheduled 2023-05-16 Screening for [facility] Test 10:39:16 malignant neoplasm of colon (procedure) [code = 574754094] Future Scheduled 2023-05-16 Screening for [facility] Test 10:39:16 malignant neoplasm of colon (procedure) [code = 626709046] Future Scheduled 2023-05-16 Pneumococcal Vaccine: [facility] Test 10:39:16 Pediatrics (0 to 5 Years) and At-Risk Patients (6 to 64 Years) (1 - PCV) [code = Pneumococcal Vaccine: Pediatrics (0 to 5 Years) and At-Risk Patients (6 to 64 Years) (1 - PCV)] Future Scheduled 2023-05-16 DIABETES: RETINAL EYE [facility] Test 10:39:16 EXAM [code = DIABETES: RETINAL EYE EXAM] Future Scheduled 2023-05-16 DIABETIC FOOT EXAM [facility] Test 10:39:16 [code = DIABETIC FOOT EXAM] Future Scheduled 2023-05-16 Screening for [facility] Test 10:39:16 malignant neoplasm of colon (procedure) [code = 961514466] Future Scheduled 2023-05-16 BREAST CANCER [facility] Test 10:39:16 SCREENING [code = BREAST CANCER SCREENING] Future Scheduled 2023-05-16 Screening for [facility] Test 10:39:16 malignant neoplasm of colon (procedure) [code = 883898131] Future Scheduled 2023-05-16 Screening for [facility] Test 10:39:16 malignant neoplasm of colon (procedure) [code = 204882304] Future Scheduled 2023-05-16 INFLUENZA VACCINE [facility] Test 10:39:16 [code = INFLUENZA VACCINE] Future Scheduled 2021-10-22 DIABETES: RETINAL EYE [facility] Test 09:59:23 EXAM [code = DIABETES: RETINAL EYE EXAM] Future Scheduled 2021-10-22 DIABETIC FOOT EXAM [facility] Test 09:59:23 [code = DIABETIC FOOT EXAM] Future Scheduled 2021-10-22 Hepatitis C screening [facility] Test 09:59:23 (procedure) [code = 926880598] Future Scheduled 2021-10-22 INFLUENZA VACCINE [facility] Test 09:59:23 [code = INFLUENZA VACCINE] Future Scheduled 2021-10-22 COVID-19 VACCINE (2 - [facility] Test 09:59:23 Pfizer 3-dose series) [code = COVID-19 VACCINE (2 - Pfizer 3-dose series)] Encounters Start End Encounter Admission Attending Care Care Encounter Source Date/Time Date/Time Type Type Clinicians Facility Department ID 2023-05-15 2023-05-15 Telephone Bg, 1.2.840.1 [id number] [facility] 00:00:00 00:00:[id number] 3.430.2.7 Hospit a .3.710667 l .8 2023-05-14 2023-05-14 Telephone Juanito, 1.2.840.1 [id number] [facility] 00:00:00 00:00:[id number] 3.430.2.7 Hospit a .3.587861 l .8 2023-05-11 2023-05-11 Telemedici Juanito, 1.2.840.1 [id number] [facility] 11:45:00 12:08:05 ne Danilo [id number] 3.430.2.7 Hospit a .3.690642 l .8 2023-05-11 2023-05-11 Outpatient [facility] [id number] [place] 00:00:00 00:00:00 DANILO [address] 2023-05-09 2023-05-09 David Tai, 1.2.840.1 [id number] [facility] 00:00:00 00:00:[id number] 3.430.2.7 Hospit a .3.712034 l .8 2023-05-05 2023-05-05 Refill Juanito, 1.2.840.1 [id number] [facility] 00:00:00 00:00:[id number] 3.430.2.7 Hospit a .3.339844 l .8 2023-04-25 2023-04-25 Patient Kenyatta Yan 1.2.840.1 [id number] [facility] 00:00:00 00:00:[id number] 3.430.2.7 Hospit a .3.684714 l .8 2023-04-24 2023-04-24 Telemedici Juanito, 1.2.840.1 [id number] Methodi 16:30:00 16:50:09 ne Danilo 15784.1.[address] 3.430.2.7 Hospit a .3.640136 l .8 2023-04-24 2023-04-24 Outpatient [facility] [id number] [place] 00:00:00 00:00:[address] 2023-04-20 2023-04-20 Emergency Medrano, 1.2.840.1 [id number] 2100 [id number] Methodi 05:23:00 06:37:00 Anal[address] Mobley 90825.1.[address] 3.430.2.7 Hospit a .3.613320 l .8 2023-04-20 2023-04-20 Emergency [facility] 064 [id number] 66 [place] 00:00:00 00:00:00 ANALILIA Briceño [facility] 2023-04-12 2023-04-12 Emergency EM [facility], [facility] NCER [id number] [facility] 12:29:00 15:23:00 Minh 91 [facility] 2023-04-12 2023-04-12 Refill Climer, 1.2.840.1 [id number] 9913 Methodi 00:00:00 00:00:[address] 3.430.2.7 Hospit a .3.122240 l .8 2023-03-08 2023-03-08 Patient Cabije, 1.2.840.1 [id number] 5556 Methodi 00:00:00 00:00:00 Outreach Maryjane 30132.1.[address] 3.430.2.7 Hospit a .3.017942 l .8 2023-02-21 2023-02-21 Refill Juanito, 1.2.840.1 [id number] 91884 52929 Methodi 00:00:00 00:00:[address] 3.430.2.7 Hospit a .3.382645 l .8 2023-02-21 2023-02-21 Refill Juanito, 1.2.840.1 [id number] 79674 60815 Methodi 00:00:00 00:00:[address] 3.430.2.7 Hospit a .3.710353 l .8 2023-02-14 2023-02-14 Orders Tai, 1.2.840.1 [id number] 090454 9056 Methodi 00:00:00 00:00:00 Only Tyriesha 11384.1.[address] 3.430.2.7 Hospit a .3.021833 l .8 2023-02-14 2023-02-14 Telephone Juanito, 1.2.840.1 [id number] 102 [id number] Methodi 00:00:00 00:00:[address] 3.430.2.7 Hospit a .3.126722 l .8 2023-01-25 2023-01-25 Refill Juanito, 1.2.840.1 [id number] 68178 89758 Methodi 00:00:00 00:00:[address] 3.430.2.7 Hospit a .3.014547 l .8 2023-01-17 2023-01-17 Refill Juanito, 1.2.840.1 [id number] 96178 96393 Methodi 00:00:00 00:00:[address] 3.430.2.7 Hospit a .3.038160 l .8 2023-01-15 2023-01-15 Telemedici Juanito, 1.2.840.1 [id number] 21 [id number] Methodi 16:45:00 17:00:12 ne Danilo 90722.1.[address] 3.430.2.7 Hospit a .3.407472 l .8 2023-01-15 2023-01-15 Outpatient [facility] [id number] [place] 00:00:00 00:00:[address] 2023-01-11 2023-01-11 Telephone Juanito, 1.2.840.1 [id number] 575 [id number] Methodi 00:00:00 00:00:[address] 3.430.2.7 Hospit a .3.428104 l .8 2022-12-18 2022-12-18 Refill Jihan Delaney 1.2.840.1 [id number] 21 [id number] Methodi 00:00:00 00:00:[address] 3.430.2.7 Hospit a .3.120585 l .8 2022-12-18 2022-12-18 Refill Juanito, 1.2.840.1 [id number] 95221 13268 Methodi 00:00:00 00:00:[address] 3.430.2.7 Hospit a .3.130639 l .8 2022-12-15 2022-12-15 Refill Juanito, 1.2.840.1 [id number] 01829 05322 Methodi 00:00:00 00:00:[address] 3.430.2.7 Hospit a .3.211624 l .8 2022-12-11 2022-12-11 Refill Juanito, 1.2.840.1 [id number] 63783 73286 Methodi 00:00:00 00:00:[address] 3.430.2.7 Hospit a .3.630973 l .8 2022-11-20 2022-11-20 Refill Juanito, 1.2.840.1 [id number] 87580 70647 Methodi 00:00:00 00:00:[address] 3.430.2.7 Hospit a .3.529612 l .8 2022-11-07 2022-11-07 Travel 1.2.840.1 1.2.774.433 8255 122805 Methodi 00:00:00 00:00:[address] 3.430.2.7 0.2.7.3.698 Ho spita .3.508871 084.8 l .8 2022-11-06 2022-11-06 Office Juanito, 1.2.840.1 [id number] 70525 64583 Methodi 11:30:00 12:48:38 Visit Danilo 45581.1.[address] 3.430.2.7 Hospit a .3.499145 l .8 2022-11-06 2022-11-06 Outpatient [facility], [facility] [id number] [place] 00:00:00 00:00:00 DANILO [address] 2022-10-30 2022-10-30 Telephone Juanito, 1.2.840.1 [id number] 050 [id number] Methodi 00:00:00 00:00:[address] 3.430.2.7 Hospit a .3.417809 l .8 2022-10-25 2022-10-25 Jihan Senior 1.2.840.1 [id number] 21 [id number] Methodi 00:00:00 00:00:[address] 3.430.2.7 Hospit a .3.904362 l .8 2022-10-24 2022-10-24 Telephone Juanito, 1.2.840.1 [id number] 333 [id number] Methodi 00:00:00 00:00:[address] 3.430.2.7 Hospit a .3.007243 l .8 2022-10-11 2022-10-11 Devyn Avelar 1.2.840.1 [id number] 944660 0714 Methodi 00:00:00 00:00:00 Only Priscila 15345.1.[address] Rachele 3.430.2.7 Hospit a .3.819292 l .8 2022-10-09 2022-10-09 Telemedici Valentino 1.2.840.1 [id number] 553 7027714 Methodi 10:45:00 11:24:[address].1.[address] Rachele 3.430.2.7 Hospit a .3.507504 l .8 2022-10-09 2022-10-09 Outpatient [facility] [id number] [place] 00:00:00 00:00:[address] 2022-10-09 2022-10-09 Telephone Juanito, 1.2.840.1 [id number] 408 [id number] Methodi 00:00:00 00:00:[address] 3.430.2.7 Hospit a .3.833399 l .8 2022-08-29 2022-08-29 Refill Juanito, 1.2.840.1 [id number] 84199 34949 Methodi 00:00:00 00:00:[address] 3.430.2.7 Hospit a .3.362942 l .8 2022-08-28 2022-08-28 Telemedici Juanito, 1.2.840.1 [id number] 21 [id number] Methodi 11:45:00 11:59:16 ne Danilo 70908.1.[address] 3.430.2.7 Hospit a .3.884331 l .8 2022-08-28 2022-08-28 Outpatient JUANITO, [facility] [id number] 2597 [place] 00:00:00 00:00:00 DANILO [address] 2022-08-25 2022-08-25 Telephone Juanito, 1.2.840.1 [id number] 459 [id number] Methodi 00:00:00 00:00:[address] 3.430.2.7 Hospit a .3.513650 l .8 2022-08-24 2022-08-24 Patient Humberto, 1.2.840.1 [id number] 404 [id number] Methodi 00:00:00 00:00:00 Outreach Hilda 12654.1.[address] 3.430.2.7 Hospit a .3.884365 l .8 2022-08-23 2022-08-23 Emergency EM Ken, [facility] [id number] [id number] [facility] 06:35:00 08:10:[address] [place] [address] 2022-08-02 2022-08-02 Refill Jihan Delaney 1.2.840.1 [id number] 21 [id number] Methodi 00:00:00 00:00:[address] 3.430.2.7 Hospit a .3.871729 l .8 2022-08-02 2022-08-02 Refill Juanito, 1.2.840.1 [id number] 68144 04325 Methodi 00:00:00 00:00:[address] 3.430.2.7 Hospit a .3.431377 l .8 2022-07-17 2022-07-17 Outpatient RHETT, JIHAN [facility] 622 [id number] [place] 00:00:00 00:00:[address] 2022-07-17 2022-07-17 Travel 1.2.840.1 1.2.866.122 7108 734986 Methodi 00:00:00 00:00:[address] 3.430.2.7 0.2.7.3.698 Ho spita .3.435804 084.8 l .8 2022-07-14 2022-07-14 Refrobert Tai, 1.2.840.1 [id number] 524214 5329 Methodi 00:00:00 00:00:[address] 3.430.2.7 Hospit a .3.321262 l .8 2022-07-04 2022-07-04 Office RhettJihan 1.2.840.1 48460 5025 [id number] Methodi 12:30:00 13:26:44 Visit Vickey Parrish 64144.1.[address] 3.430.2.7 Hospit a .3.776517 l .8 2022-07-04 2022-07-04 Outpatient RHETT, JIHAN [facility] [id number] [place] 00:00:00 00:00:[address] 2022-07-04 2022-07-04 Outpatient JIHAN DELANEY [facility] [id number] [place] 00:00:00 00:00:[address] 2022-07-04 2022-07-04 Orders Tre, 1.2.840.1 [id number] 26616 03523 Methodi 00:00:00 00:00:00 Only Merlyn 87171.1.[address] 3.430.2.7 Hospit a .3.169182 l .8 2022-07-04 2022-07-04 Orders Tre, 1.2.840.1 [id number] 99419 Methodi 00:00:00 00:00:00 Only Merlyn 38637.1.[address] 3.430.2.7 Hospit a .3.433048 l .8 2022-07-04 2022-07-04 Travel 1.2.840.1 1.2.874.734 7226 599943 Methodi 00:00:00 00:00:[address] 3.430.2.7 0.2.7.3.698 Ho spita .3.545041 084.8 l .8 2022-07-03 2022-07-03 Orders Tai, 1.2.840.1 [id number] 205919 7889 Methodi 00:00:00 00:00:00 Only Tyriesha 54129.1.[address] 3.430.2.7 Hospit a .3.440309 l .8 2022-06-16 2022-06-16 Outpatient JUANITO, [facility] [id number] 6105 [place] 00:00:00 00:00:00 DANILO [address] 2022-06-15 2022-06-15 Telemedici Bryan, 1.2.840.1 [id number] 2 [id number] Methodi 13:00:00 13:10:[address].1.[address] 3.430.2.7 Hospit a .3.301172 l .8 2022-06-15 2022-06-15 Outpatient [facility] [id number] 954 [place] 00:00:00 00:00:[address] 2022-06-15 2022-06-15 Travel 1.2.840.1 1.2.250.057 3943 069110 Methodi 00:00:00 00:00:[address] 3.430.2.7 0.2.7.3.698 Ho spita .3.145277 084.8 l .8 2022-06-15 2022-06-15 Telephone Juanito, 1.2.840.1 [id number] 157 [id number] Methodi 00:00:00 00:00:[address] 3.430.2.7 Hospit a .3.396482 l .8 2022-06-02 2022-06-02 Telemedici [facility], 1.2.840.1 [id number] 21 [id number] Methodi 16:30:00 16:41:01 [address] Danilo [address]8035.1.[address] 3.430.2.7 Hospit a .3.856231 l .8 2022-06-02 2022-06-02 Outpatient [facility] [id number] 0972 [place] 00:00:00 00:00:00 DANILO [address] 2022-06-02 2022-06-02 Travel 1.2.840.1 1.2.855.562 3008 667468 Methodi 00:00:00 00:00:[address] 3.430.2.7 0.2.7.3.698 Ho spita .3.409859 084.8 l .8 2022-05-22 2022-05-22 Travel 1.2.840.1 1.2.621.230 6489 132220 Methodi 00:00:00 00:00:[address] 3.430.2.7 0.2.7.3.698 Ho spita .3.414791 084.8 l .8 2022-05-16 2022-05-16 Patient Paul, 1.2.840.1 [id number] 293 [id number] Methodi 00:00:00 00:00:00 Outreach Hilda 31053.1.[address] 3.430.2.7 Hospit a .3.328441 l .8 2022-04-04 2022-04-04 Outpatient CRIS WYNN [facility] 764 [place] 10:19:00 10:19:00 HN 0712 [facility] 2022-02-02 2022-02-02 Outpatient JUANITO [facility] [id number] [place] 00:00:00 00:00:00 DANILO [address] 2021-10-24 2021-10-24 Outpatient [facility] 00:00:00 00:00:00 BY2021-10-21 2021-10-21 Refrobert Solomon 1.2.840.1 [id number] 31808 19820 Methodi 00:00:00 00:00:[address] 3.430.2.7 Hospit a .3.366466 l .8 2021-10-20 2021-10-20 Refill Jihan Delaney 1.2.840.1 [id number] 21 [id number] Methodi 00:00:00 00:00:[address] 3.430.2.7 Hospit a .3.545872 l .8 2021-10-17 2021-10-17 Telemedici Danilo Solomon 1.2.840.1 86918 4001 [id number] Methodi 11:43:39 11:53:17 [place] 47247.1.[address] 3.430.2.7 Hospit a .3.562073 l .8 2021-10-17 2021-10-17 Travel 1.2.840.1 1.2.200.162 5954 882662 Methodi 00:00:00 00:00:[address] 3.430.2.7 0.2.7.3.698 Ho spita .3.395317 084.8 l .8 2021-10-16 2021-10-16 Orders Juanito, 1.2.840.1 [id number] 38608 92183 Methodi 00:00:00 00:00:00 Only Danilo 43917.1.[address] 3.430.2.7 Hospit a .3.473170 l .8 2021-10-14 2021-10-14 Telephone Juanito, 1.2.840.1 [id number] 519 [id number] Methodi 00:00:00 00:00:[address] 3.430.2.7 Hospit a .3.574587 l .8 2021-10-10 2021-10-10 Telemedici Juanito, 1.2.840.1 [id number] 21 [id number] Methodi 11:23:42 11:38:21 [address] Danilo [address]17.1.[address] 3.430.2.7 Hospit a .3.659817 l .8 2021-10-06 2021-10-06 Travel 1.2.840.1 1.2.390.436 7028 910131 Methodi 00:00:00 00:00:[address] 3.430.2.7 0.2.7.3.698 Ho spita .3.350463 084.8 l .8 2021-09-28 2021-09-28 Emergency EM PRASHANT Parson [id number] [facility] 10:08:00 16:42:00 Zhou Gracia [facility] 2021-09-13 2021-09-13 Outpatient JIHAN DELANEY [facility] [id number] [place] 00:00:00 00:00:[address] 2021-09-13 2021-09-13 Travel 1.2.840.1 1.2.342.048 8800 772868 Methodi 00:00:00 00:00:[address] 3.430.2.7 0.2.7.3.698 Ho spita .3.022597 084.8 l .8 2021-08-26 2021-08-26 Orders Juanito, 1.2.840.1 [id number] Methodi 00:00:00 00:00:00 Only Danilo 40955.1.[address] 3.430.2.7 Hospit a .3.537280 l .8 2021-08-02 2021-08-02 Office Juanito, 1.2.840.1 [id number] Methodi 14:58:35 15:32:20 Visit Danilo 21744.1.[address] 3.430.2.7 Hospit a .3.005394 l .8 2021-08-02 2021-08-02 Travel 1.2.840.1 1.2.823.174 1933 387192 Methodi 00:00:00 00:00:[address] 3.430.2.7 0.2.7.3.698 Ho spita .3.669107 084.8 l .8 2021-08-02 2021-08-02 Refill Jihan Delaney 1.2.840.1 [id number] 21 [id number] Methodi 00:00:00 00:00:[address] 3.430.2.7 Hospit a .3.121504 l .8 2021-08-02 2021-08-02 Refill Juanito, 1.2.840.1 [id number] 01983 Methodi 00:00:00 00:00:[address] 3.430.2.7 Hospit a .3.316786 l .8 2021-07-28 2021-07-28 Travel 1.2.840.1 1.2.285.783 2344 198303 Methodi 00:00:00 00:00:[address] 3.430.2.7 0.2.7.3.698 Ho spita .3.787603 084.8 l .8 2021-07-25 2021-07-25 Telephone Tai, 1.2.840.1 [id number] 2099 152852 Methodi 00:00:00 00:00:[address] 3.430.2.7 Hospit a .3.148007 l .8 2021-07-11 2021-07-11 Telephone Tai, 1.2.840.1 [id number] 2099892 Methodi 00:00:00 00:00:[address] 3.430.2.7 Hospit a .3.469693 l .8 2021-06-16 2021-06-16 Orders Juanito, 1.2.840.1 [id number] Methodi 00:00:00 00:00:00 Only Danilo 24993.1.[address] 3.430.2.7 Hospit a .3.728273 l .8 2021-06-16 2021-06-16 Travel 1.2.840.1 1.2.889.098 8120 798402 Methodi 00:00:00 00:00:[address] 3.430.2.7 0.2.7.3.698 Ho spita .3.234809 084.8 l .8 2021-05-27 2021-05-27 Telemedici Juanito, 1.2.840.1 [id number] 78827514 Methodi 10:08:39 10:46:57 [address] Danilo [address]236.1.[address] 3.430.2.7 Hospit a .3.639423 l .8 2021-05-26 2021-05-26 Travel 1.2.840.1 1.2.613.658 9060 938322 Methodi 00:00:00 00:00:[address] 3.430.2.7 0.2.7.3.698 Ho spita .3.368241 084.8 l .8 2021-05-25 2021-05-25 Telephone Dahiana Gonsalez 1.2.840.1 [id number] Methodi 00:00:00 00:00:[address] 3.430.2.7 Hospit a .3.998740 l .8 2021-05-18 2021-05-18 Telemedici [facility], 1.2.840.1 [id number] 21 [id number] Methodi 16:48:24 16:54:54 ne Danilo 86335.1.[address] 3.430.2.7 Hospit a .3.175456 l .8 2021-05-16 2021-05-16 Emergency Lloyd, 1.2.840.1 [id number] 2099 431355 Methodi 16:22:00 17:55:[address] Jaime 3.430.2.7 Hospit a .3.053883 l .8 2021-05-16 2021-05-16 Travel 1.2.840.1 1.2.921.060 9896 393266 Methodi 00:00:00 00:00:[address] 3.430.2.7 0.2.7.3.698 Ho spita .3.042470 084.8 l .8 2021-04-28 2021-04-28 Refill Tai, 1.2.840.1 [id number] 163767 6776 Methodi 00:00:00 00:00:[address] 3.430.2.7 Hospit a .3.728372 l .8 2021-04-11 2021-04-11 Emergency EM Hi, [facility] CLAUDIA [id number] [facility] 17:15:00 21:12:00 Colby 15 [facility] 2021-04-05 2021-04-05 [facility], 1.2.840.1 [id number] 2099 389856 Methodi 09:42:42 23:59:00 Encounter Danilo 68632.1.[address] 3.430.2.7 Hospit a .3.133438 l .8 2021-04-05 2021-04-05 Travel 1.2.840.1 1.2.079.640 3747 701431 Methodi 00:00:00 00:00:[address] 3.430.2.7 0.2.7.3.698 Ho spita .3.389173 084.8 l .8 2021-03-29 2021-03-29 Emergency E GATO, [facility]NE MHNE 7505 [facility] 14:17:00 18:22:00 HILDA 2021-03-25 2021-03-25 Emergency E MC, MHNE MHNE 7504 [facility] 12:43:00 15:56:00 TAMMI 2021-03-22 2021-03-22 Telemedici Juanito, 1.2.840.1 [id number] Methodi 11:27:51 12:06:36 ne Danilo 05135.1.[address] 3.430.2.7 Hospit a .3.054449 l .8 2021-03-21 2021-03-21 Telephone Juanito, 1.2.840.1 [id number] 791 [id number] Methodi 00:00:00 00:00:[address] 3.430.2.7 Hospit a .3.237189 l .8 2021-03-08 2021-03-08 Office Juanito, 1.2.840.1 [id number] 56746 55870 Methodi 08:52:29 10:17:24 Visit Danilo 25733.1.[address] 3.430.2.7 Hospit a .3.364866 l .8 2021-03-07 2021-03-07 Office Jihan Delaney 1.2.840.1 [id number] Methodi 12:48:33 13:28:13 Visit Edu 20126.1.[address] 3.430.2.7 Hospit a .3.228928 l .8 2021-03-07 2021-03-07 Orders Mcfarlane, 1.2.840.1 [id number] 107351 5258 Methodi 00:00:00 00:00:00 Only Hailey 01860.1.[address] 3.430.2.7 Hospit a .3.437608 l .8 2021-03-07 2021-03-07 Orders Mcfarlane, 1.2.840.1 [id number] 959735 1993 Methodi 00:00:00 00:00:00 Only Hailey 24241.1.[address] 3.430.2.7 Hospit a .3.536524 l .8 2021-03-07 2021-03-07 Travel 1.2.840.1 1.2.079.977 3596 676350 Methodi 00:00:00 00:00:[address] 3.430.2.7 0.2.7.3.698 Ho spita .3.829661 084.8 l .8 2021-03-06 2021-03-06 Refill Juanito, 1.2.840.1 [id number] 92299 Methodi 00:00:00 00:00:[address] 3.430.2.7 Hospit a .3.029804 l .8 2021-03-04 2021-03-04 Travel 1.2.840.1 1.2.148.495 7907 640825 Methodi 00:00:00 00:00:[address] 3.430.2.7 0.2.7.3.698 Ho spita .3.194776 084.8 l .8 2021-03-03 2021-03-03 Ancillary Liu, 1.2.840.1 [id number] 2100 988814 Methodi 10:16:47 12:25:21 Procedure Delilah Fu50.1.1 [address] t 3.430.2.7 Hospit a .3.423557 l .8 2021-03-03 2021-03-03 Office Liu, 1.2.840.1 [id number] 428985 6539 Methodi 10:16:27 11:20:51 [place]. [address]18.1.[address] 3.430.2.7 Hospit a .3.963804 l .8 2021-03-02 2021-03-02 Travel 1.2.840.1 1.2.160.366 7702 818246 Methodi 00:00:00 00:00:[address] 3.430.2.7 0.2.7.3.698 Ho spita .3.723229 084.8 l .8 2021-02-28 2021-02-28 Telephone Jihan Delaney 1.2.840.1 [id number] Methodi 00:00:00 00:00:[address] 3.430.2.7 Hospit a .3.584578 l .8 2021-02-26 2021-02-26 Refill Juanito, 1.2.840.1 [id number] 05311 Methodi 00:00:00 00:00:[address] 3.430.2.7 Hospit a .3.958458 l .8 2021-02-25 2021-02-25 Telephone Juanito, 1.2.840.1 [id number] 678 [id number] Methodi 00:00:00 00:00:[address] 3.430.2.7 Hospit a .3.109566 l .8 2021-02-16 2021-02-16 Refrobert Tai 1.2.840.1 [id number] 358407 9044 Methodi 00:00:00 00:00:[address] 3.430.2.7 Hospit a .3.726009 l .8 2021-02-09 2021-02-09 RefiJhan Foley 1.2.840.1 [id number] 21 [id number] Methodi 00:00:00 00:00:[address] 3.430.2.7 Hospit a .3.303255 l .8 2021-02-08 2021-02-08 Telemedici Liu, 1.2.840.1 [id number] 589 1661733 Methodi 09:15:59 09:40:38 ne Delilah Taylor 44629.1.[address] 3.430.2.7 Hospit a .3.901286 l .8 2021-02-08 2021-02-08 Orders Orsak, 1.2.840.1 [id number] 712217 9923 Methodi 00:00:00 00:00:00 Only Nadia 12045.1.[address] 3.430.2.7 Hospit a .3.770682 l .8 2021-02-08 2021-02-08 Refill Crescencio, 1.2.840.1 [id number] 2099 261590 Methodi 00:00:00 00:00:[address] 3.430.2.7 Hospit a .3.218860 l .8 2021-01-27 2021-01-27 Refill Juanito, 1.2.840.1 [id number] 85968 Methodi 00:00:00 00:00:[address] 3.430.2.7 Hospit a .3.528734 l .8 2021-01-24 2021-01-24 Telemedici Juanito, 1.2.840.1 [id number] 55510028 Methodi 16:34:00 16:56:55 ne Danilo [address]163.1.[address] 3.430.2.7 Hospit a .3.589622 l .8 2021-01-24 2021-01-24 Travel 1.2.840.1 1.2.983.382 1441 891017 Methodi 00:00:00 00:00:[address] 3.430.2.7 0.2.7.3.698 Ho spita .3.065703 084.8 l .8 2021-01-12 2021-01-12 Telephone Juanito, 1.2.840.1 [id number] 171 8329923 Methodi 00:00:00 00:00:[address] 3.430.2.7 Hospit a .3.854451 l .8 2021-01-05 2021-01-05 Refill Juanito, 1.2.840.1 733938396 88252 62857 Methodi 00:00:00 00:00:[address] 3.430.2.7 Hospit a .3.913379 l .8 2020-12-22 2020-12-22 Refill Juanito, 1.2.840.1 823527639 39015 Methodi 00:00:00 00:00:[address] 3.430.2.7 Hospit a .3.442969 l .8 2020-12-21 2020-12-21 Refill Juanito, 1.2.840.1 150198852 54445 Methodi 00:00:00 00:00:[address] 3.430.2.7 Hospit a .3.231890 l .8 2020-12-10 2020-12-10 [facility] Juanito, 1.2.840.1 [id number] 35916 83708 Methodi 00:00:00 00:00:00 Only Danilo 50615.1.[address] 3.430.2.7 Hospit a .3.744373 l .8 2020-12-10 2020-12-10 Telephone Zaire, 1.2.840.1 [id number] 2099 856591 Methodi 00:00:00 00:00:[address] 3.430.2.7 Hospit a .3.346468 l .8 2020-12-08 2020-12-08 Hospital Juanito, 1.2.840.1 [id number] 2100 456517 Methodi 12:10:50 23:59:00 Encounter Danilo 76564.1.[address] 3.430.2.7 Hospit a .3.495839 l .8 2020-12-08 2020-12-08 Travel 1.2.840.1 1.2.767.096 1234 131877 Methodi 00:00:00 00:00:[address] 3.430.2.7 0.2.7.3.698 Ho spita .3.497169 084.8 l .8 2020-12-03 2020-12-03 Travel 1.2.840.1 1.2.426.853 8519 711606 Methodi 00:00:00 00:00:[address] 3.430.2.7 0.2.7.3.698 Ho spita .3.386711 084.8 l .8 2020-12-03 2020-12-03 Orders Zaire, 1.2.840.1 [id number] 884298 5716 Methodi 00:00:00 00:00:00 Only Dee 88721.1.[address] 3.430.2.7 Hospit a .3.194511 l .8 2020-12-03 2020-12-03 Telephone Juanito, 1.2.840.1 [id number] 305 6300942 Methodi 00:00:00 00:00:[address] 3.430.2.7 Hospit a .3.861900 l .8 2020-12-01 2020-12-01 Orders Artur, 1.2.840.1 816972874 005802 0742 Methodi 00:00:00 00:00:00 Only Carolin Bobby 95517.1.[address] 3.430.2.7 Hospit a .3.525453 l .8 2020-11-29 2020-11-29 Office Jihan Delaney 1.2.840.1 93628 5025 8185728472 Methodi 14:40:12 14:55:12 Visit Paul Linares 42120.1.[address] 3.430.2.7 Hospit a .3.340804 l .8 2020-11-29 2020-11-29 Office Juanito, 1.2.840.1 [id number] 47746 83764 Methodi 09:52:40 11:01:49 Visit Danilo 79575.1.[address] 3.430.2.7 Hospit a .3.769982 l .8 2020-11-29 2020-11-29 Outpatient [facility] [id number] 975 [place] 00:00:00 00:00:[address] 2020-11-29 2020-11-29 Refill Juanito, 1.2.840.1 [id number] 78577 Methodi 00:00:00 00:00:[address] 3.430.2.7 Hospit a .3.140488 l .8 2020-11-29 2020-11-29 Travel 1.2.840.1 1.2.238.644 7393 953833 Methodi 00:00:00 00:00:[address] 3.430.2.7 0.2.7.3.698 Ho spita .3.323974 084.8 l .8 2020-11-18 2020-11-18 Emergency Marcela, 1.2.840.1 [id number] 2100 054926 Methodi 19:04:00 21:34:00 Analilia Mobley [address]42.1.[address] 3.430.2.7 Hospit a .3.593960 l .8 2020-11-18 2020-11-18 Telephone Daniel 1.2.840.1 [id number] 303 4500751 Methodi 00:00:00 00:00:[address] 3.430.2.7 Hospit a .3.896068 l .8 2020-11-18 2020-11-18 Devyn Prather 1.2.840.1 [id number] 2100 013095 Methodi 00:00:00 00:00:00 Only Benita 91998.1.[address] 3.430.2.7 Hospit a .3.693839 l .8 2020-11-02 2020-11-02 Telephone Crescencio, 1.2.840.1 [id number] 21 [id number] Methodi 00:00:00 00:00:[address] 3.430.2.7 Hospit a .3.657217 l .8 2020-11-01 2020-11-01 Patient Babar, 1.2.840.1 [id number] 782148 0566 Methodi 00:00:00 00:00:00 Outreach Thomas 06734.1.[address] 3.430.2.7 Hospit a .3.167958 l .8 2020-10-28 2020-10-28 Travel 1.2.840.1 1.2.860.163 8291 650969 Methodi 00:00:00 00:00:[address] 3.430.2.7 0.2.7.3.698 Ho spita .3.075686 084.8 l .8 2020-10-21 2020-10-21 Outpatient JUANITO, [facility] [id number] [address] [place] 00:00:00 00:00:00 DANILO 865 Method i 2020-10-20 2020-10-20 Outpatient [facility] [id number] 859 [place] 00:00:00 00:00:[address] 2020-10-15 2020-10-18 Inpatient MACHINE, [facility] 012 19485 53717 [place] 00:00:00 00:00:00 BERNIE [address] 2020-10-15 2020-10-15 Outpatient JUANITO, [facility] [id number] 0658 [place] 00:00:00 00:00:00 DANILO [address] 2020-10-11 2020-10-14 Inpatient [facility] [id number] [facility] 11:50:00 15:59:32 83 [facility] 2020-10-08 2020-10-08 Outpatient JUANITO, [facility] [id number] 8179 [place] 00:00:00 00:00:00 DANILO [address] 2020-08-04 2020-08-04 [facility]patient [facility] [id number] 326 [place] 00:00:00 00:00:00 BARBARA 300 [facility] 2020-08-04 2020-08-04 Outpatient JUAREZ, [facility] [id number] 277 [place] 00:00:00 00:00:00 BARBARA 878 [address] 2020-02-25 2020-02-25 Outpatient JUANITO, [facility] [id number] 8975 [place] 00:00:00 00:00:00 DANILO 753 Method i 2020-02-09 2020-02-09 Emergency E SNOW, [facility] 7502 [facility] 19:01:00 21:45:00 GORGE Results Test Description Test Time Test Comments Results Result [facility] e Comments - CT HEAD/BRAIN 2023-04-12 W/O CONT 14:41:00 [facility] 1975 Sex: F Name: YONATAN PHIPPS [facility] FSED : 1975 Age/S: 47 / F [address] [facility] [address] Unit #: [id number] Loc: [address] Phys: Minh Boothe MD [place], [place] [address] Acct: [id number] Dis Date: Status: REG ER PHONE #: Exam Date: 04/12/2023 124 FAX #: Reason: HEADACHE EXAMS: CPT CODE: [id number] CT HEAD/BRAIN W/O CONT 06288 HISTORY: HEADACHE TECHNIQUE: Noncontrast 2.[address] of the head. Examination acquired within [address] dose reduction protocol: Automated exposure control adjustment of mA and/or kV according to patient size or iterative reconstruction dose optimization techniques were used. COMPARISON: CT scan of the brain October 2018 FINDINGS: No lacerations or contusions of the scalp or facial soft tissues. Calvarium and skull base are intact. No acute hemorrhage. No intracranial mass, mass effect, or midline shift. No effacement of the sulci or rhodes-white matter interface. No cortical atrophy. No signs of white matter small-vessel disease. No hydrocephalus.. No extra-axial fluid collection. Visualized paranasal sinuses are clear. Mastoid air cells and middle ear cavities are clear. Orbital contents are unremarkable. IMPRESSION: Negative CT head. Location: [facility] at 1441 Reported and signed by: Sim Justice MD CC: Minh Boothe MD Technologist:Jessica Ramirez CTDI: DLP: Trnscb Date/Time: 04/12/2023 (1440) [email or web address] Orig Print D/T: S: 04/12/2023 (3731) PAGE 1 Signed Report - XR WRIST 3 + V 2023-04-12 RT 13:17:00 [facility] : 1975 Sex: F FAX: Minh Boothe MD [place]: [place] St: REG Name: YONATAN PHIPPS [facility] : 1975 Age/S: 47/F [address] [facility] Unit #: [id number] Loc: SHANIQUAER [address] Phys: Minh Boothe MD [place], [place] [address] Acct: [id number] Dis Date: Status: REG ER PHONE #: Exam Date: 04/12/2023 1247 FAX #: Reason: WRIST PAIN EXAMS: CPT CODE: [id number] XR WRIST 3 + V RT 73348 HISTORY: Shoulder pain. COMPARISON: None available. Location: [facility]. 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 Mildly narrowed glenohumeral joint. No acute fracture or dislocation. The glenoid, coracoid and scapula are normal. Visualized lungs and ribs are normal. IMPRESSION: No acute fracture or dislocation. 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 3 views of the right wrist: No acute fracture or dislocation. Joint spaces are preserved. No AVN of the lunate or the scaphoid bones. Mineralization and the soft tissues are normal. IMPRESSION: No acute fracture or dislocation. No AVN. at 1317 Reported and signed by: Patric Mcgregor M.D. CC: Minh Boothe MD Technologist: Juan Manuel Ramirez Trnmird Date/Time/By: 04/12/2023 (1317) : By: [email or web address] PAGE 1 Signed Report - XR SHOULDER 2 + 2023-04-12 V RT 13:17:00 [facility] ([facility]Name: YONATAN PHIPPS : 1975 Sex: F FAX: Minh Boothe MD [place]: [place] St: REG Name: YONATAN PHIPPS [facility] : 1975 Age/S: 47/F [address] [facility] [address] Unit #: [id number] Loc: [facility] [address] Phys: Minh Boothe MD [place], [place] [address] Acct: [id number] Dis Date: Status: REG ER PHONE #: Exam Date: 04/12/2023 1248 FAX #: Reason: SHOULDER PAIN EXAMS: CPT CODE: [id number] XR SHOULDER 2 + V RT 13655 HISTORY: Shoulder pain. COMPARISON: None available. Location: [facility]. 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 Mildly narrowed glenohumeral joint. No acute fracture or dislocation. The glenoid, coracoid and scapula are normal. Visualized lungs and ribs are normal. IMPRESSION: No acute fracture or dislocation. 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 3 views of the right wrist: No acute fracture or dislocation. Joint spaces are preserved. No AVN of the lunate or the scaphoid bones. Mineralization and the soft tissues are normal. IMPRESSION: No acute fracture or dislocation. No AVN. at 1317 Reported and signed by: Patric Mcgregor M.D. CC: Minh Boothe MD Technologist: Juan Manuel Ramirez Trnscrd Date/Time/By: 04/12/2023 (1317) : By: [email or web address] Orig Print D/T: S: 04/12/2023 (2836) PAGE 1 Signed Report Comprehensive metabolic panel 2022-11-08 03:53:00 Test Item Value Reference Range Interpretation Comme nts Glucose (test code = 98 mg/dL 65-99 Fastin g reference 2345-7) interval BUN (test code = 3094-0) 15 mg/dL 7-25 Creatinine (test code = 0.85 mg/dL 0.50-0.99 2160-0) eGFR (test code = 86 See_Comment [place] [address]-0) the CKD-EPI 202 1 equation. To ca lculate the new eGFR fr om a previous Creati nine or Cystatin Cresul t, go to https://www.kid azam.org/ professionals/k doqi/gfr %5Fcalculator [Automated mess age] The system which ge nerated this result tra nsmitted reference range : > OR = 60 mL/min/1.73m 2. The reference range was not used to interpr et this result as normal/abnormal . BUN/creatinine ratio NOT APPLICABLE See_Comment [Aut omated message] (test code = 3097-3) The [employer] tem which generated this result transmitted ref erence range: 6 - 22 ( calc). The reference r di was not used to int erpret this result as normal/abnormal . Sodium (test code = 140 mmol/L 044-753 4057-2) Potassium (test code = 4.2 mmol/L 3.5-5.3 2823-3) Chloride (test code = 102 mmol/L 98-110 2075-0) CO2 (test code = 2027-9) 29 mmol/L 20-32 Calcium (test code = 9.8 mg/dL 8.6-10.2 81119-2) Protein (test code = 6.7 g/dL 6.1-8.1 2885-2) Albumin, S (test code = 4.2 g/dL 3.6-5.1 1751-7) Globulin, total (test 2.5 See_Comment [Auto mated message] code = 37790-7) The system w [facility] generated this result transmitted ref erence range: 1.9 - 3. 7 g/dL (calc). The ref erence range was not u sed to interpret this result as normal/abnor mal. Albumin/globulin ratio 1.7 See_Comment [Aut omated message] (test code = 1759-0) The [employer] tem which generated this result transmitted ref erence range: 1.0 - 2. 5 (calc). The ref erence range was not u sed to interpret this result as normal/abnor mal. Total bilirubin (test 0.3 mg/dL 0.2-1.2 code = 1975-2) Alkaline phosphatase 40 U/L 31-125 (test code = 6768-6) AST (test code = 1920-8) 22 U/L 10-35 ALT (test code = 1742-6) 22 U/L 6-29 LEONEL (test code = LEONEL) FASTING:YES FASTING: YES RAC (test code = RAC) Performing Organization Information: Site ID: RGA Name: [place] Website[facility] Address: [address] [place] [phone] Director: Ayan Schafer [facility] CampusLipid [id number] 03:53:00 Test Item Value Reference Range Interpretation Comments Cholesterol, total 173 mg/dL See_Comment [Automat ed (test code = 2093-3) message ] The system which generated this result transmitted reference range : <=200. The reference range was not used to interpret this result as normal/abnormal . HDL cholesterol 65 mg/dL See_Comment [Automated (test code = 2085-9) message ] The system which generated this result transmitted reference range : > OR = 50. The reference range was not used to interpret this result as normal/abnormal . Triglycerides (test 72 mg/dL See_Comment [Automa david code = 2571-8) message] The system which generated this result transmitted reference range : <=150. The reference range was not used to interpret this result as normal/abnormal . LDL cholesterol 92 mg/dL (calc) Reference ra nge: calculated (test <100 Desira ble code = 02390-5) range <100 m g/dL for primary prevention; <70 mg/dL for patients with C HD or diabetic patients with > or = 2 CHD risk factors. LDL-C is now calculated using the Michael-Rosas calculation, which is a validated novel method providin g better accuracy than the Friedewald equation in the estimation of LDL-C. Michael S S et al. SUSAN. 2013;310(19): 8720-5057 (http://educati on .[employer] .com/faq/UCU973 ) Cholesterol/HDL 2.7 See_Comment [Automated ratio (test code = message] The 9830-1) system which generated this result transmitted reference range : <5.0 (calc). Th e reference range was not used to interpret this result as normal/abnormal . Non-HDL cholesterol 108 See_Comment For francesca ents with (test code = diabetes plus 1 37095-2) major ASCVD ris k factor, treatin g to a non-HDL-C goal of <100 mg/dL (LDL-C of <70 mg/dL) is considered a therapeutic option. [Automated message] The system which generated this result transmitted reference range : <130 mg/dL (calc). The reference range was not used to interpret this result as normal/abnormal . LEONEL (test code = FASTING:YES LEONEL) FASTING: YES RAC (test code = Performing RAC) Organization Information: Site ID: [facility] Name: [place] WebsiteLo[facility] Address: [address] [place] [address] Director: [facility] [id number] 03:53:00 Test Item Value Reference Range Interpretation Comments Magnesium (test code 2.1 mg/dL 1.5-2.5 = 47180-0) LEONEL (test code = LEONEL) FASTING:YES FASTING: YES RAC (test code = RAC) Performing Organization Information: Site ID: [facility] Name: [place] WebsiteLos [facility] Address: [address] [place] [address] Director: [facility] [id number] 03:53:00 Test Item Value Reference Range Interpretation Comments WBC (test code = 8.5 See_Comment [Automated 7428-2) message] The system which generated this result transmit david reference range : 3.8 - 10.8 Thousand/uL. Th e reference range was not used to interpret this result as normal/abnormal . RBC (test code = 4.57 See_Comment [Automated 250-8) message] The system which generated this result transmit david reference range : 3.80 - 5.10 Million/uL. The reference range was not used to interpret this result as normal/abnormal . HGB (test code = 13.2 g/dL 11.7-15.5 718-7) HCT (test code = 39.9 % 35.0-45.0 4544-3) MCV (test code = 87.3 fL 80.0-100.0 787-2) MCH (test code = 28.9 pg 27.0-33.0 785-6) MCHC (test code 33.1 g/dL 32.0-36.0 = 786-4) RDW (test code = 13.1 % 11.0-15.0 788-0) Platelet count 369 See_Comment [Automated (test code = message] The 777-3) system which generated this result transmit david reference range : 140 - 400 Thousand/uL. Th e reference range was not used to interpret this result as normal/abnormal . MPV (test code = 9.5 fL 7.5-12.5 776-5) LEONEL (test code = FASTING:YES FASTING: LEONEL) YES RAC (test code = Performing RAC) Organization Information: Site ID: RGA Name: [place] WebsiteLos [facility] Address: [address] [place] [phone] Director: [facility] viral hepatitis panel (HAV, HBV, HCV)2022-11-08 03:53:00 Test Item Value Reference Range Interpretation Comments Hepatitis A IgM NON-REACTIVE NON-REACTIVE For additio nal (test code = information, 30492-2) please refer to http://educatio n.q uestdiagnostics .co m/faq/XVD181 (T his link is being provided for informational/e julieta ational purpose s only.) Hepatitis B NON-REACTIVE NON-REACTIVE surface Ag (test code = 5196-1) Hepatitis B core NON-REACTIVE NON-REACTIVE IgM (test code = 51400-4) Hepatitis C Ab NON-REACTIVE NON-REACTIVE (test code = 80461-7) Signal/cutoff 0.02 See_Comment HCV antibody was (test code = non-reactive. 37024-2) There is no laboratory evidence of HCV infection. In m ost cases, no furth er action is required. However,if rece nt HCV exposure is suspected, a te st for HCV RNA(lisa t code 42672) is suggested. For additional information ple ase refer tohttp://educat ion .[employer]. com/faq/EWA09j1 (Th is link is bein g provided for informational/e julieta ational purpose s only.) [Automat ed message] The system which generated this result transmit david reference range : <=1.00. The reference range was not used to interpret this result as normal/abnormal . LEONEL (test code = FASTING:YES LEONEL) FASTING: YES RAC (test code = Performing RAC) Organization Information: Site ID: [facility] Name: [place] WebsiteLos [facility] Address: [address] [place] [phone] Director: [place] Lena [facility] with reflex to free [id number] 03:53:00 Test Item Value Reference Range Interpretation Comments TSH reflex to 0.87 mIU/L Reference Ran ge > FT4 (test code or = 20 Years = 3016-3) 0.40-4.50 Range s First trimester 0.26-2.66 Secon d trimester 0.55-2.73 Third trimester 0.43-2.91 LEONEL (test code FASTING:YES FASTING: = LEONEL) YES RAC (test code Performing = RAC) Organization Information: Site ID: [facility] Name: [facility]sens[facility]Los [facility] Address: [address] [place] [phone] Director: [facility] with platelet and [id number] 22:49:00 Test Item Value Reference Range Interpretation Comments WBC (test code = 8.7 See_Comment [Automated 3187-2) message] The system which generated this result transmitted reference range : 3.8 - 10.8 Thousand/uL. Th e reference range was not used to interpret this result as normal/abnormal . RBC (test code = 4.35 See_Comment [Automated 9-8) message] The system which generated this result transmitted reference range : 3.80 - 5.10 Million/uL. The reference range was not used to interpret this result as normal/abnormal . HGB (test code = 13.0 g/dL 11.7-15.5 718-7) HCT (test code = 38.9 % 35.0-45.0 4544-3) MCV (test code = 89.4 fL 80.0-100.0 787-2) MCH (test code = 29.9 pg 27.0-33.0 785-6) MCHC (test code = 33.4 g/dL 32.0-36.0 786-4) RDW (test code = 13.7 % 11.0-15.0 788-0) Platelet count 344 See_Comment [Automated (test code = message] The 777-3) system which generated this result transmitted reference range : 140 - 400 Thousand/uL. Th e reference range was not used to interpret this result as normal/abnormal . MPV (test code = 9.4 fL 7.5-12.5 776-5) Neutrophils, 6221 See_Comment [Automated absolute (test message] The code = 751-8) system which generated this result transmitted reference range : 1,500 - 7,800 cells/uL. The reference range was not used to interpret this result as normal/abnormal . Lymphocytes, 1757 See_Comment [Automated absolute (test message] The code = 731-0) system which generated this result transmitted reference range : 850 - 3,900 cells/uL. The reference range was not used to interpret this result as normal/abnormal . Monocytes, 557 See_Comment [Automated absolute (test message] The code = 742-7) system which generated this result transmitted reference range : 200 - 950 cells/uL. The reference range was not used to interpret this result as normal/abnormal . Eosinophils, 157 See_Comment [Automated absolute (test message] The code = 711-2) system which generated this result transmitted reference range : 15 - 500 cells/uL. The reference range was not used to interpret this result as normal/abnormal . Basophils, 9 See_Comment [Automated absolute (test message] The code = 704-7) system which generated this result transmitted reference range : 0 - 200 cells/u L. The reference range was not used to interpr et this result as normal/abnormal . Neutrophils (test 71.5 % code = 770-8) Lymphocytes (test 20.2 % code = 736-9) Monocytes (test 6.4 % code = 5905-5) Eosinophils (test 1.8 % code = 713-8) Basophils + RC 0.1 % (test code = 706-2) LEONEL (test code = FASTING:NO FASTING: LEONEL) NO RAC (test code = Performing RAC) Organization Information: Site ID: RGA Name: [place] WebsiteLos [facility] Address: [address] [place] [phone] Director: Ayan Lena [facility] Centeredimentation [id number] 22:49:00 Test Item Value Reference Range Interpretation Comments Sedimentation rate 2 mm/h See_Comment [Automat ed (test code = 4537-7) message ] The system which generated this result transmitted reference range : < OR = 20. The reference range was not used to interpret this result as normal/abnormal . LEONEL (test code = FASTING:NO LEONEL) FASTING: NO RAC (test code = Performing RAC) Organization Information: Site ID: [facility] Name: [place] WebsiteLo[facility] Address: [address] [place] [address] Director: [facility] with reflex to [id number] 22:49:00 Test Item Value Reference Range Interpretation Comments RPR (test code = NON-REACTIVE NON-REACTIVE 00476-5) LEONEL (test code = FASTING:NO FASTING: NO LEONEL) RAC (test code = Performing Organization RAC) Information: Site ID: RGA Name: [place] WebsiteLos [facility] Address: [address] [place] [address] Director: [facility] HospitalHIV 1/2 antigen/antibody, fourth generation, with reflexes 2022-06-19 22:49:00 Test Item Value Reference Range Interpretation Comments HIV NON-REACTIVE NON-REACTIVE HIV-1 antigen a nd antigen/ant HIV-1/HIV-2 ant ibodies ibody 4th were notdetecte d. There gen (test is no laborator y evidence code = of HIVinfection . PLEASE 99291-9) NOTE: This info rmation has been disclo suki craft from records wh ose confidentiality may beprotected by state law. If your state r equires suchprotection, then the state law prohi bits you frommaking any further disclosure of t he informationwith out the specific writte n consent of the personto whom it pertains, or as otherwise permitted by sascha Dunn general authori zation for the release of medical orother informa tion is NOT sufficient for this purpose. For ad ditional information ple ase refer tohttp://educat ion.Mobii/ faq/IPM344 (This link is b eing provided for informational/e ducational purposes only.) The performance of this assay has not been clinicallyvalid ated in patients less t forrest 2 years old. LEONEL (test FASTING:NO FASTING: code = LEONEL) NO RAC (test Performing code = RAC) Organization Information: Site ID: RGA Name: [place] WebsiteLos [facility] Address: [address] [place] [phone] Director: [place] Lena [facility]onaldHann[facility]ordDet[facility]- CTA CHEST FOR [id number] 15:35:00 [facility] PHIP[facility] : 1975 Sex: F Patient Name: YONATAN PHIPPS Unit No: [id number] EXAMS: CPT CODE: [id number] CTA CHEST FOR [place] 30959EDUKGOSWVTQ: - CTA CHEST FOR PE. LOCATION: S17. HISTORY: Elevated d- dimer, dyspnea, cough, DM, HTN. COMPARISON: None. TECHNIQUE: CTA of the chest is performed after intravenous administration of 67 ccof Isovue-370 using pulmonary embolism protocol. MIP images are obtained. One or more the following dose reduction techniques were used: Automated exposure control, adjustment of mA and/or kV accordingto patient size, and use of iterative reconstruction technique. FINDINGS: Partially visualized thyroid gland appears unremarkable. VASCULATURE: There is normal enhancement of the main, lobar and segmental pulmonary arteries, evaluation beyond is limited due to contrast bolus timing. There are no filling defects to suggest a pulmonary embolism. LYMPH NODES: No axillary, mediastinal or hilar bulky lymphadenopathy is identified. MEDIASTINUM: No mediastinal mass is noted. No aneurysmal dilatation of thoracic aorta. PLEURA/PERICARDIUM: No pericardial or pleural effusion. LUNGS/AIRWAYS: The trachea and central bronchi are patent. No pneumothorax. No focal consolidation. Bibasilar dependent changes. 7 mm calcified nodule in right lower lobe. OSSEOUS STRUCTURES: Visualized osseous structures demonstratemild degenerative changes. UPPER ABDOMEN: Visualized portion of the upper abdominal viscera appear un remarkable. IMPRESSION: No CTA evidence to suggest a pulmonary embolism, evaluation at subsegmental levels is limited due to contrast bolus timing. No focal consolidation. at 1535 Reported and signed by: Patricia Chairez MD [facility] Chan NAME: [address] PHYS: Zhou Her [place] [address] : 1975 AGE: 46 SEX: F LOC: B.Whis[place] PHONE #: [phone] EXAM DATE: 09/28/2021 STATUS: REG ER FAX #: [phone] RAD #: D/C DT PAGE 1 Signed Report (CONTINUED) Patient Name: YONATAN PHIPPS Unit No: [id number] EXAMS: CPT CODE: [id number] [place] [address] (Continued) CC: Zhou Parson MD Dictated Date/Time: 09/28/2021 (1535) Technologist: DELPHINE WEBB CTDI: 12.24 DLP: 521.75 Trnscrpt: 09/28/2021 (1535) t.SDR.ANS4 [facility] Chan NAME: DES[address] PHYS: Zhou [place] [address] : 1975 AGE: 46 SEX: F LOC: B.ERS PHONE #: [phone] EXAM DATE: 09/28/2021 STATUS: REG ER FAX#: [phone] RAD #: D/C DT PAGE 2 Signed Report Patient Name: YONATAN PHIPPS Unit No: [id number] EXAMS: CPT CODE: [id number] [place] [address] (Continued) Orig Print D/T: S: 09/28/2021 (1538) DRE Giles NAME: WALKER,[address] PHYS: Zhou Her MD [place], [place] [address] : 1975 AGE: 46 SEX: F LOC: OLIVE PHONE #: [phone] EXAM DATE: 09/28/2021 STATUS: REG ER FAX #: [phone] RAD #: D/C DT PAGE 3 Signed [id number] 12:54:00 Test Item Value Reference Range Interpretation Comments D-DIMER (test 649 FEUng/mL 0-500 H THE CUT-OFF VA LUE FOR code = DDIMER) EXCLUSION OF VTE = 500 FEU ng/mLNOTE: This method must be used with additional test s in theevaluation o f VTE and should not be u sed to exclude VTE wit hpretest probability jennifer ne. COMPREHENSIVE METABOLIC [id number] 12:37:00 Test Item Value Reference Range Interpretation Comments SODIUM (test code = 137.0 mmol/L 133-144 N NA) POTASSIUM (test code 3.2 mmol/L 3.5-5.1 L = K) CHLORIDE (test code 104 mmol/L 95-105 N = CL) CARBON DIOXIDE (test 25 mmol/L 21-32 N code = CO2) ANION GAP (test code 8.0 GAP calc 4.0-15.0 N = GAP) GLUCOSE (test code = 103 MG/DL 70-110 N GLU) BLOOD UREA NITROGEN 9 MG/DL 7-18 N (test code = BUN) GLOMERULAR 71 estGFR >60 The estimated FILTRATION RATE glomerular (test code = GFR) filtration rate is computed usingpatient ra ce, age, sex, and s jackson creatinine. If any of theneeded da ta elements are mi ssing the Laboratory can notcompute an estimation of t he glomerular filtration rate .The GFR value units = ml/min/1.73 met er squared. EstimatedGFR va lues above 60 should be interpreted as >60, not anexact number.--- DRUG DOSAGE ALERT -- - Drug dosage adjustments uti lize different calculationpara meter s. CREATININE (test 1.03 MG/DL 0.55-1.30 N Results may be code = CREAT) depressed if p atient is takingN-Acetylc ystei ne (NAC) and Metamizole (Dipyrone). TOTAL PROTEIN (test 7.7 G/DL 6.4-8.2 N code = PROT) ALBUMIN (test code = 3.7 G/DL 3.4-5.0 N ALB) ALBUMIN/GLOBULIN 0.9 RATIO 1.2-2.2 L RATIO (test code = A/G) CALCIUM (test code = 9.1 MG/DL 8.5-10.1 N CA) BILIRUBIN TOTAL 0.30 MG/DL 0.00-1.00 N (test code = BILT) BILIRUBIN DIRECT 0.10 MG/DL 0.00-0.30 N (test code = BILD) BILIRUBIN INDIRECT 0.20 MG/DL 0.2-1.3 N (test code = BILIND) SGOT/AST (test code 24 Unit/L 15-37 N = AST) SGPT/ALT (test code 33 Unit/L 12-78 N = ALT) ALKALINE PHOSPHATASE 51 Unit/L 45-117 N TOTAL (test code = ALKP) INDEX HEMOLYSIS 2 TRACE 10-25 See_Comment [Automated message] (test code = MG Index/DL The system [employer] HEMINDEX) generated this result transmit david reference range : 1 NORMAL. The reference range was not used to interpret this result as normal/abnormal . INDEX ICTERIC (test 1 NORMAL <2 MG See_Comment [Auto mated message] code = ICTINDEX) Index/DL The system which generated this result transmit david reference range : 1 NORMAL. The reference range was not used to interpret this result as normal/abnormal . INDEX LIPEMIA (test 1 NORMAL <50 See_Comment [Automa david message] code = LIPINDEX) MG Index/DL The system which generated this result transmit david reference range : 1 NORMAL. The reference range was not used to interpret this result as normal/abnormal . [id number] 12:37:00 Test Item Value Reference Range Interpretation Comments TROPONIN-I < 0.015 NG/ML 0.000-0.045 N INTERPRET WITH CAUTION, THIS (test code = VALUE EXCEEDS T HE LOWER TROPI) LIMITOF LINEARI TY VERIFICATION ES TABLISHED BY THE LABORATORY. An elevated troponin value alone is not sufficient todi agnose a myocardial infa rction. Rather, the patient'sclinic al presentation (h istory, physical exam) and ECGshould be used in conj unction with troponin in the diagnostic evaluation of s uspected myocardial infa rction. Aserial samplin g protocol is recommended to facilitate theidentificati on of temporal change s in troponin levelscharacter istic of [place]. - XR CHEST 1 [id number] 12:28:00 [facility] Y[facility] PHIPPS : 1975 Sex: F FAX: [facility] [place]: E St: REG FAX: Elsie Solorio NP [phone] Patient Name: YONATAN PHIPPS Unit No: [id number] EXAMS: CPT CODE: [id number] XR CHEST 1 V 18348 EXAMINATION: - XR CHEST 1 V. LOCATION: S17. HISTORY: Dyspnoea, cough. COMPARISON: None. FINDINGS: Examination is limited due to portable technique and patient body habitus. Cardiac silhouette/Mediastinal contour: Within normal limits. Lungs: No focal consolidation. No large pleural effusion. Osseous Structures: No acute osseous abnormalities. IMPRESSION: No focal consolidation. at 1228 Reported and signed by: Patricia Chairez MD CC: [facility]; Elsie De Guzman NP Dictated Date/Time: 09/28/2021 (5473)Technologist: KINZA GAMINO Transcribed Date/Time: 09/28/2021 (1228) By: [email or web address] Orig Print D/T: S: 09/28/2021 (7362) DRE [place] NAME: YONATAN PHIPPS [address] [place] [address] Blvd PHYS: Elsie Jacobs NP [place], [place] [address] : 1975 AGE: 46 SEX: F LOC: B.ERS PHONE #: [phone] EXAM DATE: 09/28/2021 STATUS: REG ER FAX #: [phone] RAD NO: DC Dt: PAGE 1 Signed ReportCOVID 19 INHOUSE [id number] 12:27:00 Test Item Value Reference Range Interpretation Comments COVID 19 INHOUSE AG (test code = Negative Neg [id number]) URINALYSIS [id number] 12:11:00 Test Item Value Reference Range Interpretation Comments UA COLOR (test code = YELLOW DESCRIPT YELLOW COLU) UA APPEARANCE (test CLEAR DESCRIPT CLEAR code = APPU) UA GLUCOSE DIPSTICK NORMAL (0) See_Comment [Automa david (test code = DGLUU) mg/dL message] The system which generated this result transmit david reference range : 0 (NORMAL). The reference range was not used to interpret this result as normal/abnormal . UA BILIRUBIN DIPSTICK NEGATIVE (0.0) See_Comment [Au tomated (test code = BILU) mg/dL message] The system which generated this result transmit david reference range : (NEG) 0. The reference range was not used to interpret this result as normal/abnormal . UA KETONE DIPSTICK 20 (1+) mg/dL See_Comment A [Automa david (test code = KETU) message] The system which generated this result transmit david reference range : (NEG) 0. The reference range was not used to interpret this result as normal/abnormal . UA SPECIFIC GRAVITY 1.029 SG 1.001-1.035 (test code = SGU) UA BLOOD DIPSTICK NEGATIVE (0.00) See_Comment [Autom ated (test code = KI) mg/dL message] T he system which generated this result transmit david reference range : 0 (NEG). The reference range was not used to interpret this result as normal/abnormal . UA PH DIPSTICK (test 7.5 pH UNITS 4.6-8.0 code = JO) UA PROTEIN DIPSTICK 20 (TRACE) See_Comment A [Automa david (test code = PROU) mg/dL message] The system which generated this result transmit david reference range : <30 (1+). The reference range was not used to interpret this result as normal/abnormal . UA UROBILINIOGEN NORMAL (0) See_Comment [Automated DIPSTICK (test code = mg/Dl messag e] The URO) system which generated this result transmit david reference range : <2.0 (1+). The reference range was not used to interpret this result as normal/abnormal . UA NITRITE DIPSTICK NEGATIVE (0) NEG (test code = MERI) SCREEN UA LEUKOCYTE ESTERASE NEGATIVE (0) See_Comment [Auto mated DIPSTICK (test code = Leuk/mcL messag e] The LEUU) system which generated this result transmit david reference range : (NEG) 0. The reference range was not used to interpret this result as normal/abnormal . UA WBC (test code = 0-3 #WBC/HPF 0-3 WBCU) UA RBC (test code = 0-3 #RBC/HPF 0-3 RBCU) UA BACTERIA (test FEW >1 /HPF NONE-FEW code = BACU) UA SQUAMOUS CELLS FEW >2 /UL NONE-SQepi (test code = SQU) UA MUCUS (test code = RARE /LPF NONE MUCU) UA YEAST (BUDDING) RARE >0 /HPF NONE A (test code = YEASTUBD) UR HCG [id number] 12:11:00 Test Item Value Reference Range Interpretation Comments UR HCG QUAL (test NEGATIVE NEG Very dilut e urines with a code = HCGQLU) low specific gravity may notcontain repr esentative levels of hCG. CBC W/AUTO [id number] 12:06:00 Test Item Value Reference Range Interpretation Comments WHITE BLOOD CELL (test code = 11.1 K/mm3 4.1-12.1 N WBC) RED BLOOD CELL (test code = RBC) 4.91 M/mm3 3.8-5.5 N HEMOGLOBIN (test code = HGB) 13.9 G/DL 10.6-15.8 N HEMATOCRIT (test code = HCT) 41.9 % 31.8-47.4 N MEAN CELL VOLUME (test code = 85.3 fL 80.1-101.1 N MCV) MEAN CELL HGB (test code = MCH) 28.3 pg 25.3-35.3 N MEAN CELL HGB CONCETRATION (test 33.2 G/DL 32.7-35.1 N code = MCHC) RED CELL DISTRIBUTION WIDTH 13.6 % 12.2-16.4 N (test code = RDW) RED CELL DISTRIBUTION WIDTH 42.5 fL 36.4-46.3 N (test code = RDW-SD) PLATELET COUNT (test code = PLT) 432 K/mm3 155-337 H MEAN PLATELET VOLUME (test code 9.3 fL 6.8-11.2 N = MPV) GRANULOCYTE % (test code = GR%) 76.6 % 37.8-82.6 N IMMATURE GRANULOCYTE % (test 0.5 % 0.0-2.0 N code = IG%) LYMPHOCYTE % (test code = LY%) 16.5 % 14.1-45.4 N MONOCYTE % (test code = MO%) 5.3 % 2.5-11.7 N EOSINOPHIL % (test code = EO%) 0.8 % 0.0-6.2 N BASOPHIL % (test code = BA%) 0.3 % 0.0-2.1 N NUCLEATED RBC % (test code = 0.0 /100WBC% 0.0-1.0 N NRBC%) GRANULOCYTE # (test code = GR#) 8.48 k/mm3 2.0-13.7 N IMMATURE GRANULOCYTE # (test 0.05 K/mm3 0.00-0.03 H code = IG#) LYMPHOCYTE # (test code = LY#) 1.83 K/mm3 0.6-3.8 N MONOCYTE # (test code = MO#) 0.59 K/mm3 0.11-0.59 N EOSINOPHIL # (test code = EO#) 0.09 K/mm3 0.0-0.4 N BASOPHIL # (test code = BA#) 0.03 K/mm3 0.0-0.1 N NUCLEATED RBC # (test code = 0.00 K/mm3 0.0-0.05 N NRBC#) Comprehensive metabolic [id number] 17:01:00 Test Item Value Reference Range Interpretation Comments Glucose (test code = 91 mg/dL 65-139 Non-fa sting 2345-7) reference interval BUN (test code = 15 mg/dL 7-25 3094-0) Creatinine (test 0.84 mg/dL 0.50-1.10 code = 2160-0) EGFR Non-Afr. See_Comment [Automated Australian (test code message] The = 7985) system which generated this result transmitted reference range : > OR = 60 mL/min/1.73m2. The reference range was not used to interpr et this result as normal/abnormal . EGFR See_Comment [Automated Australian (test code message] The = 3514) system which generated this result transmitted reference range : > OR = 60 mL/min/1.73m2. The reference range was not used to interpr et this result as normal/abnormal . BUN/creatinine ratio NOT APPLICABLE See_Comment [Aut omated (test code = 3097-3) message ] The system which generated this result transmitted reference range : 6 - 22 (calc). The reference range was not used to interpr et this result as normal/abnormal . Sodium (test code = 139 mmol/L 451-431 4212-2) Potassium (test code 4.0 mmol/L 3.5-5.3 = 2823-3) Chloride (test code 101 mmol/L 98-110 = 2075-0) CO2 (test code = 29 mmol/L 20-32 8-9) Calcium (test code = 9.7 mg/dL 8.6-10.2 13167-9) Protein (test code = 7.5 g/dL 6.1-8.1 2885-2) Albumin, S (test 4.5 g/dL 3.6-5.1 code = 1751-7) Globulin, total See_Comment [Automated (test code = message] The 09448-0) system which generated this result transmitted reference range : 1.9 - 3.7 g/dL (calc). The reference range was not used to interpret this result as normal/abnormal . Albumin/globulin See_Comment [Automated ratio (test code = message] The 1819-0) system which generated this result transmitted reference range : 1.0 - 2.5 (calc ). The reference range was not used to interpr et this result as normal/abnormal . Total bilirubin 0.4 mg/dL 0.2-1.2 (test code = 1975-2) Alkaline phosphatase 48 U/L 31-125 (test code = 6768-6) AST (test code = 34 U/L 10-30 H 1920-8) ALT (test code = 26 U/L 6-29 1742-6) LEONEL (test code = FASTING:NO LEONEL) FASTING: NO RAC (test code = Performing RAC) Organization Information: Site ID: A Name: [place] [facility] Address: [address] [place] [address] Director: Ayan Schafer Lab Interpretation Abnormal (test code = 70733-7) [facility] [id number] 17:01:00 Test Item Value Reference Range Interpretation Comments Magnesium (test code 2.2 mg/dL 1.5-2.5 = 52997-9) LEONEL (test code = LEONEL) FASTING:NO FASTING: NO RAC (test code = RAC) Performing Organization Information: Site ID: [facility] Name: [place] [facility] Address: [address] [place] [phone] Director: Ayan Schafer [facility] [id number] 17:01:00 Test Item Value Reference Range Interpretation Comments WBC (test code = See_Comment [Automated 0389-2) message] The system which generated this result transmitted reference range : 3.8 - 10.8 Thousand/uL. Th e reference range was not used to interpret this result as normal/abnormal . RBC (test code = See_Comment [Automated 133-8) message] The system which generated this result transmitted reference range : 3.80 - 5.10 Million/uL. The reference range was not used to interpret this result as normal/abnormal . HGB (test code = 13.8 g/dL 11.7-15.5 718-7) HCT (test code = 43.4 % 35.0-45.0 4544-3) MCV (test code = 87.3 fL 80.0-100.0 787-2) MCH (test code = 27.8 pg 27.0-33.0 785-6) MCHC (test code = 31.8 g/dL 32.0-36.0 L 786-4) RDW (test code = 13.4 % 11.0-15.0 788-0) Platelet count (test See_Comment H [Autom ated code = 777-3) message] The system which generated this result transmitted reference range : 140 - 400 Thousand/uL. Th e reference range was not used to interpret this result as normal/abnormal . MPV (test code = 9.2 fL 7.5-12.5 776-5) LEONEL (test code = FASTING:NO LEONEL) FASTING: NO RAC (test code = Performing RAC) Organization Information: Site ID: RGA Name: [place] [facility] [facility] Address: [address] [place] [address] Director: Ayan Schafer Lab Interpretation Abnormal (test code = 21916-1) [facility] with reflex to [id number] 17:01:00 Test Item Value Reference Range Interpretation Comments RPR (test code = NON-REACTIVE NON-REACTIVE 23599-6) LEONEL (test code = FASTING:NO FASTING: NO LEONEL) RAC (test code = Performing Organization RAC) Information: Site ID: RGA Name: [place] [facility] Address: [address] [place] [address] Director: Ayan Schafer [facility] SERUM [id number] 19:22:00 Test Item Value Reference Range Interpretation Comments HCG SERUM QUAL (test NEGATIVE NEGATIVE This HC GQL test is NOT code = HCGQL) applicable for MALE patients.Check with nurse about probable order error.If Tumor Marker Test needed, nu rse should order test "HCG TU"(Test #550.75884)---- - [id number] 19:22:00 Test Item Value Reference Range Interpretation Comments TROPONIN-I (test code = TROPI) < 0.006 ng/mL 0-0.045 N BASIC METABOLIC [id number] 19:22:00 Test Item Value Reference Range Interpretation Comments SODIUM (test code = 139 mmol/L 136-145 N NA) POTASSIUM (test code 3.6 mmol/L 3.5-5.1 N = K) CHLORIDE (test code 108.0 mmol/L 98-107 H = CL) CARBON DIOXIDE (test 28.0 mmol/L 21-32 N code = CO2) ANION GAP (test code 6.6 10-20 L = GAP) GLUCOSE (test code = 97 mg/dL 74-106 N GLU) BLOOD UREA NITROGEN 8 mg/dL 7-18 N (test code = BUN) GLOMERULAR > 60 mL/min See_Comment Estimated GFR b y FILTRATION RATE using Modifi ed MDRD (test code = GFR) formula.Ch ronic kidney disease is defined as eith er kidney damageor GFR <60 mL/min/1.73 m2 for >3 months. [Automated mess age] The system [employer] generated this result transmitted ref erence range: >=60. Th e reference range was not used to int erpret this result as normal/abnormal . CREATININE (test 1.00 mg/dL 0.55-1.02 N Note palmer ge in code = CREAT) reference rang e due to change in reagent. BUN/CREATININE RATIO 7.7 10-20 L (test code = BUN/CREA) CALCIUM (test code = 8.5 mg/dL 8.5-10.1 N CA) BASIC METABOLIC [id number] 19:19:00 Test Item Value Reference Range Interpretation Comments SODIUM (test code = NA) mmol/L 136-145 POTASSIUM (test code = mmol/L 3.5-5.1 K) CHLORIDE (test code = mmol/L 98-107 CL) CARBON DIOXIDE (test mmol/L 21-32 code = CO2) ANION GAP (test code = 10-20 GAP) GLUCOSE (test code = mg/dL 74-106 GLU) BLOOD UREA NITROGEN mg/dL 7-18 (test code = BUN) GLOMERULAR FILTRATION mL/min See_Comment [Auto mated message] RATE (test code = GFR) The s [employer] which generated this result transmitted ref erence range: >=60. Th e reference range was not used to interpr et this result as normal/abnormal . CREATININE (test code = mg/dL 0.55-1.02 CREAT) BUN/CREATININE RATIO 10-20 (test code = BUN/CREA) CALCIUM (test code = mg/dL 8.5-10.1 CA) HCG SERUM [id number] 19:19:00 Test Item Value Reference Range Interpretation Comments HCG SERUM QUAL (test NEGATIVE NEGATIVE This HC GQL test is NOT code = HCGQL) applicable for MALE patients.Check with nurse about probable order error.If Tumor Marker Test needed, nu rse should order test "HCG TU"(Test #550.52831)---- - [id number] 19:19:00 Test Item Value Reference Range Interpretation Comments TROPONIN-I (test code = TROPI) ng/mL 0-0.045 CBC W/O [id number] 19:09:00 Test Item Value Reference Range Interpretation Comments WHITE BLOOD CELL (test code = 7.0 K/mm3 4.5-12.5 N WBC) RED BLOOD CELL (test code = 4.40 mill/mm3 3.7-5.2 N RBC) HEMOGLOBIN (test code = HGB) 12.4 gram/dL 11.5-15.5 N HEMATOCRIT (test code = HCT) 39.1 % 36.0-46.0 N MEAN CELL VOLUME (test code = 88.9 fL 80-98 N MCV) MEAN CELL HGB (test code = MCH) 28.2 picogram 27.0-33.0 N MEAN CELL HGB CONCETRATION 31.7 gram/dL 33.0-36.0 L (test code = MCHC) RED CELL DISTRIBUTION WIDTH 14.9 % 11.6-16.2 N (test code = RDW) PLATELET COUNT (test code = 406 K/mm3 150-450 N PLT) MEAN PLATELET VOLUME (test code 9.4 fL 6.7-11.0 N = MPV) Helicobacter pylori antigen, [id number] 21:41:00 Test Item Value Reference Range Interpretation Comments H pylori Ag, SEE NOTE HELICOBACTER P YLORI stool (test AG, EIA, STOOL Micro code = Number: [id number] 8 76866-2) Test Status: Fi nal Specimen Source : STOOL Specimen Quality: Adequa te H.pylori Ag: No t Detected Antimicrobials, proton pump inhibitors, and bismuth prepara tions inhibit H. pylo ri and ingestion u p to two weeks prior to testing may cau se false negative results. If clinically radha cated the test should be repeated on a n ew specimen obtain ed two weeks after discontinuing treatment. Refe rence Range: Not Dete cted RAC (test code Performing = RAC) Organization Information: Site ID: [facility] Name: [place] [facility] Address: [address] [place] [address] Director: Ayan Lena GilmarMount Carmel Health SystemOccult blood, [id number] 21:41:00 Test Item Value Reference Range Interpretation Comments Fecal globin SEE NOTE FECAL GLOBIN B Y result (test IMMUNOCHEMISTRY Micro code = Number: [id number] Test 47092-7) Status: Final S pecimen Source: INSURE (TM) FOBT TEST CARD Specimen Qualit y: Adequate Fecal Globin: Not Detected RAC (test Performing code = RAC) Organization Information: Site ID: [facility] Name: [place] [facility] Address: [address] [place], [place] [address] Director: [place] Lena [facility] HospitalCancer antigen [id number] 09:36:00 Test Item Value Reference Range Interpretation Comments CA 125 5.3 U/mL 0.0-38.1 Reece Diagnosti cs (test code Electrochemilum inescence = 10402-5) Immunoassay (EC WILLIAM)Values obtained with d ifferent assay methods or kits cannot beused interchangeably . Results cannot be inter preted as absoluteevidenc e of the presence or abs ence of malignant disea se. LEONEL (test Performed at: 01 code = - [facility] LEONEL) [address] [id number] Director: Antwan Hatch MD, Phone: [phone] [facility] CampusLipid [id number] 14:59:00 Test Item Value Reference Range Interpretation Comments Cholesterol, total 143 mg/dL <200 (test code = 2093-3) HDL cholesterol 58 mg/dL See_Comment [Automated (test code = 2085-9) message ] The system which generated this result transmitted reference range : > OR = 50. The reference range was not used to interpret this result as normal/abnormal . Triglycerides (test 97 mg/dL <150 code = 2571-8) LDL cholesterol mg/dL (calc) Reference ra nge: calculated (test <100 Desira ble code = 51735-4) range <100 m g/dL for primary prevention; <70 mg/dL for patients with C HD or diabetic patients with > or = 2 CHD risk factors. LDL-C is now calculated using the Michael-Rosas calculation, which is a validated novel method providin g better accuracy than the Friedewald equation in the estimation of LDL-C. Michael S S et al. SUSAN. 2013;310(19): 9270-2012 (http://educati on .[employer] .com/faq/CUJ266 ) Cholesterol/HDL See_Comment [Automated ratio (test code = message] The 9830-1) system which generated this result transmitted reference range : <5.0 (calc). Th e reference range was not used to interpret this result as normal/abnormal . Non-HDL cholesterol See_Comment For francesca ents with (test code = diabetes plus 1 88016-5) major ASCVD ris k factor, treatin g to a non-HDL-C goal of <100 mg/dL (LDL-C of <70 mg/dL) is considered a therapeutic option. [Automated message] The system which generated this result transmitted reference range : <130 mg/dL (calc). The reference range was not used to interpret this result as normal/abnormal . LEONEL (test code = FASTING:YESCOLLECT LEONEL) ION KIT GIVEN TO PATIENT. PATIENT ADVISED TO RETURN. FASTING: YES RAC (test code = Performing RAC) Organization Information: Site ID: RGA Name: [place] [facility] Address: [address] [place] [address] Director: Ayan Schafer [facility] CampusHemoglobin [id number] 14:59:00 Test Item Value Reference Range Interpretation Comments Hemoglobin A1C See_Comment For the purpo se of (test code = screening for t he 4548-4) presence ofdiab etes: <5.7% Consisten t with the absence of diabetes5.7-6.4 % Consistent with increased risk for diabetes (prediabetes)> or =6.5% Consisten t with diabetes This a ssay result is consi stent with a decrease d riskof diabetes . Currently, no consensus exist s regarding use ofhemoglobin A1 c for diagnosis of di abetes in children. According to er[place] Diabetes Associ ation (ADA)guidelines , hemoglobin A1c <7.0% represents optimalcontrol in non- di abetic patients. Differentmetric s may apply to specif ic patient populat ions. Standards of Co dical Care in Diabetes(ADA). [Automated mess age] The system [employer] generated this result transmitted ref erence range: <5.7 % o f total Hgb. The reference range was not used to int erpret this result as normal/abnormal . LEONEL (test code = FASTING:YESCOLLECT LEONEL) ION KIT GIVEN TO PATIENT. PATIENT ADVISED TO RETURN. FASTING: YES RAC (test code = Performing RAC) Organization Information: Site ID: RGA Name: [facility] Address: [address] [place] [address] Director: Ayan Schafer [facility] 12 [id number] 00:30:11 Test Item Value Reference Range Interpretation Comments Ventricular rate (test code = 253) Atrial rate (test code = 255) HI interval (test code = 266) QRSD interval (test code = 260) QT interval (test code = 264) QTC interval (test code = 265) P axis 1 (test code = 267) QRS axis 1 (test code = 268) T wave axis (test code = 270) EKG impression (test code Normal sinus = 273) rhythm-Normal ECG- [facility] CampusUrine [id number] 01:41:04 Test Item Value Reference Range Interpretation Comments Urine culture (test SEE COMMENT Bacteriu benja screen code = 9651508) negative. [facility] RNA [Presence] in Respiratory specimen by AMI with probe [id number] 06:22:21 Test Item Value Reference Range Interpretation Comments SARS-CoV-2 (COVID-19) RNA Not detected Not-Detected [Presence] in Respiratory specimen by AMI with probe detection (test code = 73787-6) [facility]- CT ABD PELVIS [id number] 14:11:00[facility] ([facility])Name: YONATAN PHIPPS : 1975 Sex: F Name: YONATAN PHIPPS [place]ED : 1975 Age/S: 45 / F [address] [facility] [address] Unit #: [id number] Loc: [address] Phys: Minh Boothe MD [place], [place] [address] Acct: [id number] Dis Date: Status: REG ER PHONE #: Exam Date: 10/11/2020 6420 FAX #: Reason: abdominal pain EXAMS: CPT CODE: [id number] CT ABD PELVIS W/CONT 12285 HISTORY: Abdominal pain. COMPARISON: None available. Location: [facility]. CT of abdomen and pelvis with IV contrast: 100 mL of Isovue-370. Automated exposure control. CT of abdomen: The lung bases are clear. Dependent changes. The liver is enhancing homogeneously. No parenchymal mass or lesions. No architectural distortion. Portal vein and hepatic artery are patent. Gallbladder is without radiopaque stones. The spleen enhances homogeneously and is not enlarged. The stomach distended incompletely and is limited in evaluation. Pancreas is enhancing homogeneously. Adrenals are normal. Kidneys are free from hydroureteronephrosis. Homogeneous enhancement. Bilateral excretion. No pathologic adenopathy. Well-opacified abdominal and pelvic vasculature. No bowel obstruction or colitis or diverticulitis or enteritis. CT PELVIS: Appendix is normal. Pelvic bowel loops are unobstructed. Mildly thickened rectal wall likely from underdistention. No inflammatory changes are noted. Patient is post hysterectomy. Ovaries demonstrating follicular change. The urinary bladder is decompressed and nondiagnostic. No pelvic pathologic adenopathy. Stent noted within a branchof the right femoral vessel with postop changes and appears occluded. Correlate with surgical history. No pelvic pathologic adenopathy. No free fluid or free air or abscess. The subcutaneous tissues and the musculature otherwise are unremarkable. No lytic or blastic lesions are noted within the bony PAGE 1 Signed Report (CONTINUED) Name: YONATAN PHIPPS [facility] FSED : 1975 Age/S:45 / F [address] [facility] N Unit #: [id number] Loc: [address] Phys: Minh Boothe MD [place], [place] [address] Acct: [id number] Dis Date: Status: REG ER PHONE #: Exam Date: 10/11/2020 7663 FAX #: Reason: abdominal pain EXAMS: CPT CODE: [id number] CT ABD PELVIS W/CONT 36407 <Continued> skeleton.IMPRESSION: No acute intra-abdominal or intrapelvic pathology. Stent noted within the branch vessel of the right common femoral artery without flow suggesting occlusion. Correlate with surgical history. at 1411 Reported and signed by: Patric Mcgregor M.D. CC: Minh Boothe MD Technologist:Aldo Ontiveros RT(R)(CT) CTDI: DLP: Trnscb Date/Time: 10/11/2020 (1411) t.SDR.TH4 Orig Print D/T: S: 10/11/2020 (1414) PAGE 2 Signed ReportURINALYSIS COMPLETE 2020-10-11 14:00:00 Test Item Value Reference Range Interpretation Comments UA COLOR (test code = YELLOW YELLOW COLU) UA APPEARANCE (test code CLEAR CLEAR = APPU) UA GLUCOSE DIPSTICK (test NEGATIVE mg/dL NEGATIVE code = DGLUU) UA BILIRUBIN DIPSTICK NEGATIVE NEGATIVE (test code = BILU) UA KETONE DIPSTICK (test NEGATIVE mg/dL NEGATIVE code = KETU) UA SPECIFIC GRAVITY (test 1.025 1.001-1.035 code = SGU) UA BLOOD DIPSTICK (test NEGATIVE NEGATIVE code = KI) UA PH DIPSTICK (test code 6.0 5.0-8.0 = JO) UA PROTEIN DIPSTICK (test NEGATIVE mg/dL Neg-15 code = PROU) UA UROBILINIOGEN DIPSTICK 0.2 mg/dL 0.0-0.2 (test code = URO) UA NITRITE DIPSTICK (test NEGATIVE NEGATIVE code = MERI) UA LEUKOCYTE ESTERASE NEGATIVE uL NEGATIVE DIPSTICK (test code = LEUU) UA MICROSCOPIC NEEDED? YES (test code = UAMICRO) UA WBC (test code = WBCU) 0-5 per HPF 0-5 UA RBC (test code = RBCU) 0-3 per HPF 0-5 UA EPITHELIAL CELLS (test Few (2-5/hpf) per Few code = EPIU) HPF UA BACTERIA (test code = FEW per HPF NONE BACU) UA MUCUS (test code = FEW per LPF NONE-FEW MUCU) Urine Source? Clean CatchURINALYSIS [id number] 13:54:00 Test Item Value Reference Range Interpretation Comments UA COLOR (test code = COLU) YELLOW YELLOW UA APPEARANCE (test code = CLEAR CLEAR APPU) UA GLUCOSE DIPSTICK (test code NEGATIVE mg/dL NEGATIVE = DGLUU) UA BILIRUBIN DIPSTICK (test NEGATIVE NEGATIVE code = BILU) UA KETONE DIPSTICK (test code NEGATIVE mg/dL NEGATIVE = KETU) UA SPECIFIC GRAVITY (test code 1.025 1.001-1.035 = SGU) UA BLOOD DIPSTICK (test code = NEGATIVE NEGATIVE KI) UA PH DIPSTICK (test code = 6.0 5.0-8.0 JO) UA PROTEIN DIPSTICK (test code NEGATIVE mg/dL Neg-15 = PROU) UA UROBILINIOGEN DIPSTICK 0.2 mg/dL 0.0-0.2 (test code = URO) UA NITRITE DIPSTICK (test code NEGATIVE NEGATIVE = MERI) UA LEUKOCYTE ESTERASE DIPSTICK NEGATIVE uL NEGATIVE (test code = LEUU) UA MICROSCOPIC NEEDED? (test code = UAMICRO) UA WBC (test code = WBCU) per HPF 0-5 UA RBC (test code = RBCU) per HPF 0-5 UA EPITHELIAL CELLS (test code per HPF Few = EPIU) UA BACTERIA (test code = BACU) per HPF NONE Urine Source? Clean CatchC REACTIVE [id number] 13:08:00 Test Item Value Reference Range Interpretation Comments C REACTIVE PROTEIN (test code = 0.7 mg/dL 0-0.3 H CRP) BASIC METABOLIC [id number] 13:07:00 Test Item Value Reference Range Interpretation Comments SODIUM (test code = 139 mmol/L 128-145 N NA) POTASSIUM (test code 3.6 mmol/L 3.5-5.1 N = K) CHLORIDE (test code = 102.0 mmol/L 98-107 N CL) CARBON DIOXIDE (test 28.6 mmol/L 22-29 N code = CO2) ANION GAP (test code 12 mmol/L 10-20 N = GAP) GLUCOSE (test code = 88 mg/dL 70-110 N GLU) BLOOD UREA NITROGEN 11 mg/dL 7-22 N (test code = BUN) GLOMERULAR FILTRATION > 60 mL/min >=60 Estima david GFR by RATE (test code = using Eliel fied MDRD GFR) formula.Chronic kidney disease is defined as eith er kidney damageor GFR <60 mL/min/1.73 m2 for >3 months. CREATININE (test code 0.88 mg/dL 0.55-1.3 N = CREAT) BUN/CREATININE RATIO 12.5 10-20 N (test code = BUN/CREA) CALCIUM (test code = 8.6 mg/dL 8.0-10.5 N CA) HEPATIC FUNCTION [id number] 13:07:00 Test Item Value Reference Range Interpretation Comments TOTAL PROTEIN (test code = PROT) 7.4 gram/dL 6.1-7.8 N ALBUMIN (test code = ALB) 3.7 g/dL 3.3-4.4 N GLOBULIN (test code = GLOB) 3.7 G/DL 1-10 N ALBUMIN/GLOBULIN RATIO (test code 1.0 0.75-1.50 N = A/G) BILIRUBIN TOTAL (test code = 0.30 mg/dL 0.2-1.2 N BILT) BILIRUBIN DIRECT (test code = 0.10 mg/dL 0.0-0.30 N BILD) SGOT/AST (test code = AST) 17 U/L 10-39 N SGPT/ALT (test code = ALT) 23 U/L 10-69 N ALKALINE PHOSPHATASE TOTAL (test 58 U/L 50-139 N code = ALKP) [id number] 13:07:00 Test Item Value Reference Range Interpretation Comments LIPASE (test code = LIP) 81 Unit/L 144-286 L HCG SERUM [id number] 13:07:00 Test Item Value Reference Range Interpretation Comments HCG SERUM QUAL (test NEGATIVE NEGATIVE This HC GQL test is NOT code = HCGQL) applicable for MALE patients.Check with nurse about probable order error.If Tumor Marker Test needed, nu rse should order test "HCG TU"(Test #550.60451)---- - [id number] 13:07:00 Test Item Value Reference Range Interpretation Comments TROPONIN-I (test code = TROPI) <0.015 ng/mL 0.00-0.056 N BASIC METABOLIC [id number] 13:01:00 Test Item Value Reference Range Interpretation Comments SODIUM (test code = 139 mmol/L 128-145 N NA) POTASSIUM (test code 3.6 mmol/L 3.5-5.1 N = K) CHLORIDE (test code = 102.0 mmol/L 98-107 N CL) CARBON DIOXIDE (test 28.6 mmol/L 22-29 N code = CO2) ANION GAP (test code 12 mmol/L 10-20 N = GAP) GLUCOSE (test code = 88 mg/dL 70-110 N GLU) BLOOD UREA NITROGEN 11 mg/dL 7-22 N (test code = BUN) GLOMERULAR FILTRATION > 60 mL/min >=60 Estima david GFR by RATE (test code = using Eliel fied MDRD GFR) formula.Chronic kidney disease is defined as [facility] er kidney damageor GFR <60 mL/min/1.73 m2 for >3 months. CREATININE (test code 0.88 mg/dL 0.55-1.3 N = CREAT) BUN/CREATININE RATIO 12.5 10-20 N (test code = BUN/CREA) CALCIUM (test code = 8.6 mg/dL 8.0-10.5 N CA) HEPATIC FUNCTION [id number] 13:01:00 Test Item Value Reference Range Interpretation Comments TOTAL PROTEIN (test code = PROT) gram/dL 6.4-8.2 ALBUMIN (test code = ALB) g/dL 3.4-5.0 GLOBULIN (test code = GLOB) G/DL 1-10 ALBUMIN/GLOBULIN RATIO (test code = 0.75-1.50 A/G) BILIRUBIN TOTAL (test code = BILT) mg/dL 0.0-1.0 BILIRUBIN DIRECT (test code = BILD) mg/dL 0.0-0.20 SGOT/AST (test code = AST) IUnit/L 15-37 SGPT/ALT (test code = ALT) IUnit/L 12-78 ALKALINE PHOSPHATASE TOTAL (test IUnit/L 45-117 code = ALKP) [id number] 13:01:00 Test Item Value Reference Range Interpretation Comments LIPASE (test code = LIP) U/L 73.0-393.0 HCG SERUM [id number] 13:01:00 Test Item Value Reference Range Interpretation Comments HCG SERUM QUAL (test NEGATIVE NEGATIVE This HC GQL test is NOT code = HCGQL) applicable for MALE patients.Check with nurse about probable order error.If Tumor Marker Test needed, nu rse should order test "HCG TU"(Test #550.82985)---- - [id number] 13:01:00 Test Item Value Reference Range Interpretation Comments TROPONIN-I (test code = TROPI) ng/mL 0-0.045 BASIC METABOLIC [id number] 12:55:00 Test Item Value Reference Range Interpretation Comments SODIUM (test code = NA) mmol/L 136-145 POTASSIUM (test code = K) mmol/L 3.5-5.1 CHLORIDE (test code = CL) mmol/L 98-107 CARBON DIOXIDE (test code = CO2) mmol/L 21-32 ANION GAP (test code = GAP) mmol/L 10-20 GLUCOSE (test code = GLU) mg/dL 70-110 BLOOD UREA NITROGEN (test code = BUN) mg/dL 7-22 GLOMERULAR FILTRATION RATE (test code mL/min >=60 = GFR) CREATININE (test code = CREAT) mg/dL 0.55-1.02 BUN/CREATININE RATIO (test code = 10-20 BUN/CREA) CALCIUM (test code = CA) mg/dL 8.5-10.1 HEPATIC FUNCTION [id number] 12:55:00 Test Item Value Reference Range Interpretation Comments TOTAL PROTEIN (test code = PROT) gram/dL 6.4-8.2 ALBUMIN (test code = ALB) g/dL 3.4-5.0 GLOBULIN (test code = GLOB) G/DL 1-10 ALBUMIN/GLOBULIN RATIO (test code = 0.75-1.50 A/G) BILIRUBIN TOTAL (test code = BILT) mg/dL 0.0-1.0 BILIRUBIN DIRECT (test code = BILD) mg/dL 0.0-0.20 SGOT/AST (test code = AST) IUnit/L 15-37 SGPT/ALT (test code = ALT) IUnit/L 12-78 ALKALINE PHOSPHATASE TOTAL (test IUnit/L 45-117 code = ALKP) [id number] 12:55:00 Test Item Value Reference Range Interpretation Comments LIPASE (test code = LIP) U/L 73.0-393.0 HCG SERUM [id number] 12:55:00 Test Item Value Reference Range Interpretation Comments HCG SERUM QUAL (test NEGATIVE NEGATIVE This HC GQL test is NOT code = HCGQL) applicable for MALE patients.Check with nurse about probable order error.If Tumor Marker Test needed, nu rse should order test "HCG TU"(Test #550.99563)---- - [id number] 12:55:00 Test Item Value Reference Range Interpretation Comments TROPONIN-I (test code = TROPI) ng/mL 0-0.045 CBC W/O [id number] 12:52:00 Test Item Value Reference Range Interpretation Comments WHITE BLOOD CELL (test code = 9.9 K/mm3 4.5-12.5 N WBC) RED BLOOD CELL (test code = 5.07 mill/mm3 3.7-5.2 N RBC) HEMOGLOBIN (test code = HGB) 13.9 gram/dL 11.5-15.5 N HEMATOCRIT (test code = HCT) 41.5 % 36.0-46.0 N MEAN CELL VOLUME (test code = 81.9 fL 80-98 N MCV) MEAN CELL HGB (test code = MCH) 27.4 picogram 27.0-33.0 N MEAN CELL HGB CONCETRATION 33.5 gram/dL 33.0-36.0 N (test code = MCHC) RED CELL DISTRIBUTION WIDTH 13.0 % 11.6-16.2 N (test code = RDW) RED CELL DISTRIBUTION WIDTH SD 39.3 fL 37.0-51.0 N (test code = RDW-SD) PLATELET COUNT (test code = 451 K/mm3 150-450 H PLT) MEAN PLATELET VOLUME (test code 9.1 fL 6.7-11.0 N = MPV) SARS-CoV-2 (COVID-19) RNA [Presence] in Respiratory specimen by AMI with probe [id number] 04:15:44 Test Item Value Reference Range Interpretation Comments SARS-CoV-2 (COVID-19) RNA Not detected Not-Detected [Presence] in Respiratory specimen by AMI with probe detection (test code = 20956-4) [facility] [id number] 17:17:00 Test Item Value Reference Range Interpretation Comments GLUCOSE BEDSIDE TESTING (test code = 88 MG/DL 70-119 N GLUBED) GLUCOSE BEDSIDE [id number] 13:14:00 Test Item Value Reference Range Interpretation Comments GLUCOSE BEDSIDE TESTING (test code 105 MG/DL 70-119 N = GLUBED) GLUCOSE BEDSIDE [id number] 11:22:00 Test Item Value Reference Range Interpretation Comments GLUCOSE BEDSIDE TESTING (test code 102 MG/DL 70-119 N = GLUBED) BASIC METABOLIC [id number] 05:47:00 Test Item Value Reference Range Interpretation Comments SODIUM (test code = 137.0 mmol/L 133-144 N NA) POTASSIUM (test code 3.6 mmol/L 3.5-5.1 N = K) CHLORIDE (test code 104 mmol/L 95-105 N = CL) CARBON DIOXIDE (test 25 mmol/L 21-32 N code = CO2) ANION GAP (test code 8.0 GAP calc 4.0-15.0 N = GAP) GLUCOSE (test code = 90 MG/DL 70-110 N GLU) BLOOD UREA NITROGEN 17 MG/DL 7-18 N (test code = BUN) CREATININE (test 0.88 MG/DL 0.55-1.30 N Results may be code = CREAT) depressed if patient is takingN-Acetylc yste ine (NAC) and Metamizole (Dipyrone). CALCIUM (test code = 8.1 MG/DL 8.5-10.1 L CA) INDEX HEMOLYSIS 1 NORMAL <10 MG 1 NORMAL (test code = Index/DL HEMINDEX) INDEX ICTERIC (test 1 NORMAL <2 MG 1 NORMAL code = ICTINDEX) Index/DL INDEX LIPEMIA (test 1 NORMAL <50 MG 1 NORMAL code = LIPINDEX) Index/DL CBC W/AUTO [id number] 05:16:00 Test Item Value Reference Range Interpretation Comments WHITE BLOOD CELL (test code = 12.8 K/mm3 4.1-12.1 H WBC) RED BLOOD CELL (test code = RBC) 3.85 M/mm3 3.8-5.5 N HEMOGLOBIN (test code = HGB) 11.2 G/DL 10.6-15.8 N HEMATOCRIT (test code = HCT) 33.9 % 31.8-47.4 N MEAN CELL VOLUME (test code = 88.1 fL 80.1-101.1 N MCV) MEAN CELL HGB (test code = MCH) 29.1 pg 25.3-35.3 N MEAN CELL HGB CONCETRATION (test 33.0 G/DL 32.7-35.1 N code = MCHC) RED CELL DISTRIBUTION WIDTH 14.2 % 12.2-16.4 N (test code = RDW) RED CELL DISTRIBUTION WIDTH 45.6 fL 36.4-46.3 N (test code = RDW-SD) PLATELET COUNT (test code = PLT) 321 K/mm3 155-337 N MEAN PLATELET VOLUME (test code 9.3 fL 6.8-11.2 N = MPV) GRANULOCYTE % (test code = GR%) 71.7 % 37.8-82.6 N IMMATURE GRANULOCYTE % (test 0.4 % 0.0-2.0 N code = IG%) LYMPHOCYTE % (test code = LY%) 21.0 % 14.1-45.4 N MONOCYTE % (test code = MO%) 5.5 % 2.5-11.7 N EOSINOPHIL % (test code = EO%) 1.2 % 0.0-6.2 N BASOPHIL % (test code = BA%) 0.2 % 0.0-2.1 N NUCLEATED RBC % (test code = 0.0 /100WBC% 0.0-1.0 N NRBC%) GRANULOCYTE # (test code = GR#) 9.21 k/mm3 2.0-13.7 N IMMATURE GRANULOCYTE # (test 0.05 K/mm3 0.00-0.03 H code = IG#) LYMPHOCYTE # (test code = LY#) 2.69 K/mm3 0.6-3.8 N MONOCYTE # (test code = MO#) 0.71 K/mm3 0.11-0.59 H EOSINOPHIL # (test code = EO#) 0.15 K/mm3 0.0-0.4 N BASOPHIL # (test code = BA#) 0.02 K/mm3 0.0-0.1 N NUCLEATED RBC # (test code = 0.00 K/mm3 0.0-0.05 N NRBC#) GLUCOSE BEDSIDE [id number] 21:22:00 Test Item Value Reference Range Interpretation Comments GLUCOSE BEDSIDE TESTING (test code 134 MG/DL 70-119 H = GLUBED) GLUCOSE BEDSIDE [id number] 18:15:00 Test Item Value Reference Range Interpretation Comments GLUCOSE BEDSIDE TESTING (test code = 96 MG/DL 70-119 N GLUBED) GLUCOSE BEDSIDE [id number] 06:13:00 Test Item Value Reference Range Interpretation Comments GLUCOSE BEDSIDE TESTING (test code 118 MG/DL 70-119 N = GLUBED) - CT HEAD/BRAIN W/O [id number] 02:52:00 Patient Name: YONATAN PHIPPS Unit No: [id number] EXAMS: CPT CODE: [id number] CT HEAD/BRAIN W/OCONT 14957 LOCATION: Q15 HISTORY: 43-year-old female who presents with an alteration of awareness. COMMENT: Axial imaging of the patient's brain was obtained without IV contrast. Soft tissue and bone window images were provided. Coronal and sagittal reconstructions were included. An older examination obtained June 12, 2012 is available for comparison. The current study was obtained within 24 hours of the patient's arrival to this facility. One or more of the following dose reduction techniques were used: Automated exposure control, adjustment of the mA and/or kV according to patient size, and/or utilization of iterative reconstruction technique. DLP: 852.51 mGy-cm CONTRAST: None FINDINGS: There is no evidence of acute mass effect, midline shift, hemorrhage, or herniation. The ventricles, sulci, and cisterns are within normal limits. There is no CT evidence of an acute infarct. The skeleton is intact. The visualized paranasal sinuses and air cells are clear. The soft tissues are unremarkable. IMPRESSION: Unremarkable noncontrast head CT examination. at 0252 Reported and signed by: Ayan Do M.D. CC: Zhou Parson MD; Rob Ramsey DO Dictated Date/Time: 11/07/2018 (251) Technologist: Telma Johnson- Yusef CTDI: 45.96 DLP: 852.51 Trnscrpt: 11/07/2018 (251) [email or web address] DRE Giles NAME: YONATAN PHIPPS [facility] PHYS: TIARRA. - [address] : 1975 AGE: 43 SEX: Alis [place] [id number] LOC: SONU PHONE #: [phone] EXAM DATE: 11/07/2018 STATUS: ADM IN FAX #: [phone] RAD #: D/C DT PAGE 1 Signed Report Patient Name: YONATAN PHIPPS Unit No: [id number] EXAMS: CPT CODE: [id number] CT HEAD/BRAIN W/O CONT 42273 (Continued) Orig Print D/T: S: 11/07/2018 (254) DRE Giles NAME: YONATAN PHIPPS MEDICAL IMAGING PHYS: [email or web address].02 - [address] : 1975 AGE: 43 SEX: Alis [place] [id number] LOC: SONU 17 PHONE #: [phone] EXAM DATE: 11/07/2018 STATUS: ADM IN FAX #: [phone] RAD #: D/C DT PAGE 2 Signed ReportPOTASSIUM 2018-11-06 21:43:00 Test Item Value Reference Range Interpretation Comments POTASSIUM (test code = K) 3.8 mmol/L 3.5-5.1 N GLUCOSE BEDSIDE [id number] 20:43:00 Test Item Value Reference Range Interpretation Comments GLUCOSE BEDSIDE TESTING (test code 139 MG/DL 70-119 H = GLUBED) [id number] 18:20:00 Test Item Value Reference Range Interpretation Comments AMMONIA (test code = AMM) 29.0 mcMOL/L 11.0-32.0 N CARBAMAZEPINE (TEGRETOL)2018-11-06 18:03:00 Test Item Value Reference Range Interpretation Comments CARBAMAZEPINE (TEGRETOL) (test 8.8 mcG/ML 4.0-12.0 N code = CARB) URINALYSIS [id number] 17:07:00 Test Item Value Reference Range Interpretation Comments UA COLOR (test code = STRAW DESCRIPT YELLOW COLU) UA APPEARANCE (test code CLEAR DESCRIPT CLEAR = APPU) UA GLUCOSE DIPSTICK (test NEGATIVE (0) mg/dL (NEG) 0 code = DGLUU) UA BILIRUBIN DIPSTICK NEGATIVE (0) mg/dL (NEG) 0 (test code = BILU) UA KETONE DIPSTICK (test 0 (NEG) mg/dL (NEG) 0 code = KETU) UA SPECIFIC GRAVITY (test 1.004 SG 1.001-1.035 code = SGU) UA BLOOD DIPSTICK (test NEGATIVE (0) mg/DL (NEG) 0 code = KI) UA PH DIPSTICK (test code 6.0 pH UNITS 4.6-8.0 = JO) UA PROTEIN DIPSTICK (test NEGATIVE (0) mg/dL <30 (1+) code = PROU) UA UROBILINIOGEN DIPSTICK NORMAL (0) mg/Dl <2.0 (1+) (test code = URO) UA NITRITE DIPSTICK (test NEGATIVE (0) SCREEN NEG code = MERI) UA LEUKOCYTE ESTERASE NEGATIVE (0) (NEG) 0 DIPSTICK (test code = Leuk/mcL LEUU) UA WBC (test code = WBCU) 0-3 #WBC/HPF 0-3 UA RBC (test code = RBCU) 0-3 #RBC/HPF 0-3 UA SQUAMOUS CELLS (test RARE >0 /HPF NONE-SQepi code = SQU) UA MUCUS (test code = RARE /LPF NONE MUCU) UR HCG [id number] 17:07:00 Test Item Value Reference Range Interpretation Comments UR HCG QUAL (test NEGATIVE NEG Very dilut e urines with a code = HCGQLU) low specific gravity may notcontain repr esentative levels of hCG. DRUGS OF ABUSE SCREEN [id number] 17:07:00 Test Item Value Reference Interpretation Comments Range URN COCAINE (test NONE DETECTED <300 NG/ML code = COCAURN) (NEG) SCcutoff URN CANNABINOIDS NONE DETECTED <50 NG/ML (test code = (NEG) CANNABURN) SCcutoff URN AMPHETAMINE NONE DETECTED <1000 NG/ML (test code = (NEG) AMPHETURN) SCcutoff URN BARBITURATE NONE DETECTED <200 NG/ML (test code = (NEG) BARBITURN) SCcutoff URN BENZODIAZEPINE NONE DETECTED <200 NG/ML (test code = (NEG) BENZOURN) SCcutoff URN OPIATES (test NONE DETECTED <300 NG/ML code = OPIATURN) (NEG) SCcutoff URN PHENCYCLIDINE NONE DETECTED <25 NG/ML ------ Fo r all drug (PCP) (test code = (NEG) screen an alytes PHENCURN) SCcutoff ------The scree n method provides only a preliminary analyticaltest result. A more specific a lternate chemical method mustbe used in order t o obtain a confirmed fior lytical result.Gas chromatography/ mass spectrometry (G C/MS) is thepreferred confirmatory me thod. Other chemical confirmationmet hods are available. Clin ical consideration andprofessional judgement shoul d be applied to any drug ofabuse test re sult, particularly wh en preliminary positiveresults are used. COMPREHENSIVE METABOLIC [id number] 16:51:00 Test Item Value Reference Range Interpretation Comments SODIUM (test code = 136.0 mmol/L 133-144 N NA) POTASSIUM (test code 3.1 mmol/L 3.5-5.1 L = K) CHLORIDE (test code 99 mmol/L 95-105 N = CL) CARBON DIOXIDE (test 25 mmol/L 21-32 N code = CO2) ANION GAP (test code 12.0 GAP calc 4.0-15.0 N = GAP) GLUCOSE (test code = 205 MG/DL 70-110 H GLU) BLOOD UREA NITROGEN 11 MG/DL 7-18 N (test code = BUN) GLOMERULAR 71 estGFR >60 The estimated FILTRATION RATE glomerular (test code = GFR) filtration rate is computed usingpatient ra ce, age, sex, and s jackson creatinine. If any of theneeded da ta elements are mi ssing the Laboratory can notcompute an estimation of t he glomerular filtration rate .The GFR value units = ml/min/1.73 met er squared. EstimatedGFR va lues above 60 should be interpreted as >60, not anexact number.--- DRUG DOSAGE ALERT -- - Drug dosage adjustments uti lize different calculationpara meter s. CREATININE (test 1.04 MG/DL 0.55-1.30 N Results may be code = CREAT) depressed if p atient is takingN-Acetylc ystei ne (NAC) and Metamizole (Dipyrone). TOTAL PROTEIN (test 7.5 G/DL 6.4-8.2 N code = PROT) ALBUMIN (test code = 3.6 G/DL 3.4-5.0 N ALB) ALBUMIN/GLOBULIN 0.9 RATIO 1.2-2.2 L RATIO (test code = A/G) CALCIUM (test code = 8.7 MG/DL 8.5-10.1 N CA) BILIRUBIN TOTAL 0.21 MG/DL 0.00-1.00 N (test code = BILT) BILIRUBIN DIRECT < 0.10 MG/DL 0.00-0.30 N (test code = BILD) BILIRUBIN INDIRECT 0.21 MG/DL 0.2-1.3 N (test code = BILIND) SGOT/AST (test code 20 Unit/L 15-37 N = AST) SGPT/ALT (test code 32 Unit/L 12-78 N = ALT) ALKALINE PHOSPHATASE 49 Unit/L 45-117 N TOTAL (test code = ALKP) INDEX HEMOLYSIS 1 NORMAL <10 1 NORMAL (test code = MG Index/DL HEMINDEX) INDEX ICTERIC (test 1 NORMAL <2 MG 1 NORMAL code = ICTINDEX) Index/DL INDEX LIPEMIA (test 1 NORMAL <50 1 NORMAL code = LIPINDEX) MG Index/DL [id number] 16:51:00 Test Item Value Reference Range Interpretation Comments ACETAMINOPHEN (test code = ACET) <2.0 mcG/ML 10.0-30.0 L [id number] 16:51:00 Test Item Value Reference Range Interpretation Comments ALCOHOL (test code = < 3 MG/DL 0-10 N MEDICAL ALCOHOL ALC) RESULTS. SITE W PREPPED WITH BE TADINE. <10 MG/DL ARE CONSIDERED NEGA TIVE. >400 MG/DL MAY BE FATAL.RESULTS F OR MEDICAL USE ONL Y. NOT TO BE USED FOR FORENSIC PURPOSES. [id number] 16:43:00 Test Item Value Reference Range Interpretation Comments SALICYLATE (test code < 1.7 MG/DL 2.8-20.0 THER L RESUL T <2.8 IS = MIGDALIA) CONSIDERED NEGA TIVE FOR SALICYLATE. URINALYSIS [id number] 16:36:00 Test Item Value Reference Range Interpretation Comments UA COLOR (test code = STRAW DESCRIPT YELLOW COLU) UA APPEARANCE (test code CLEAR DESCRIPT CLEAR = APPU) UA GLUCOSE DIPSTICK (test NEGATIVE (0) mg/dL (NEG) 0 code = DGLUU) UA BILIRUBIN DIPSTICK NEGATIVE (0) mg/dL (NEG) 0 (test code = BILU) UA KETONE DIPSTICK (test 0 (NEG) mg/dL (NEG) 0 code = KETU) UA SPECIFIC GRAVITY (test 1.004 SG 1.001-1.035 code = SGU) UA BLOOD DIPSTICK (test NEGATIVE (0) mg/DL (NEG) 0 code = KI) UA PH DIPSTICK (test code 6.0 pH UNITS 4.6-8.0 = JO) UA PROTEIN DIPSTICK (test NEGATIVE (0) mg/dL <30 (1+) code = PROU) UA UROBILINIOGEN DIPSTICK NORMAL (0) mg/Dl <2.0 (1+) (test code = URO) UA NITRITE DIPSTICK (test NEGATIVE (0) SCREEN NEG code = MERI) UA LEUKOCYTE ESTERASE NEGATIVE (0) (NEG) 0 DIPSTICK (test code = Leuk/mcL LEUU) UA WBC (test code = WBCU) 0-3 #WBC/HPF 0-3 UA RBC (test code = RBCU) 0-3 #RBC/HPF 0-3 UA SQUAMOUS CELLS (test RARE >0 /HPF NONE-SQepi code = SQU) UA MUCUS (test code = RARE /LPF NONE MUCU) UR HCG [id number] 16:36:00 Test Item Value Reference Range Interpretation Comments UR HCG QUAL (test NEGATIVE NEG Very dilut e urines with a code = HCGQLU) low specific gravity may notcontain repr esentative levels of hCG. DRUGS OF ABUSE SCREEN [id number] 16:36:00 Test Item Value Reference Range Interpretation Comments URN COCAINE (test code = COCAURN) SCcutoff <300 NG/ML URN CANNABINOIDS (test code = SCcutoff <50 NG/ML CANNABURN) URN AMPHETAMINE (test code = SCcutoff <1000 NG/ML AMPHETURN) URN BARBITURATE (test code = SCcutoff <200 NG/ML BARBITURN) URN BENZODIAZEPINE (test code = SCcutoff <200 NG/ML BENZOURN) URN OPIATES (test code = OPIATURN) SCcutoff <300 NG/ML URN PHENCYCLIDINE (PCP) (test code SCcutoff <25 NG/ML = PHENCURN) URINALYSIS [id number] 16:35:00 Test Item Value Reference Range Interpretation Comments UA COLOR (test code = COLU) DESCRIPT YELLOW UA APPEARANCE (test code = APPU) DESCRIPT CLEAR UA GLUCOSE DIPSTICK (test code = mg/dL (NEG) 0 DGLUU) UA BILIRUBIN DIPSTICK (test code = mg/dL (NEG) 0 BILU) UA KETONE DIPSTICK (test code = mg/dL (NEG) 0 KETU) UA SPECIFIC GRAVITY (test code = SG 1.001-1.035 SGU) UA BLOOD DIPSTICK (test code = KI) mg/DL (NEG) 0 UA PH DIPSTICK (test code = JO) pH UNITS 4.6-8.0 UA PROTEIN DIPSTICK (test code = mg/dL <30 (1+) PROU) UA UROBILINIOGEN DIPSTICK (test mg/Dl <2.0 (1+) code = URO) UA NITRITE DIPSTICK (test code = SCREEN NEG MERI) UA LEUKOCYTE ESTERASE DIPSTICK Leuk/mcL (NEG) 0 (test code = LEUU) UA RBC (test code = RBCU) #RBC/HPF 0-3 UR HCG [id number] 16:35:00 Test Item Value Reference Range Interpretation Comments UR HCG QUAL (test NEGATIVE NEG Very dilut e urines with a code = HCGQLU) low specific gravity may notcontain repr esentative levels of hCG. DRUGS OF ABUSE SCREEN [id number] 16:35:00 Test Item Value Reference Range Interpretation Comments URN COCAINE (test code = COCAURN) SCcutoff <300 NG/ML URN CANNABINOIDS (test code = SCcutoff <50 NG/ML CANNABURN) URN AMPHETAMINE (test code = SCcutoff <1000 NG/ML AMPHETURN) URN BARBITURATE (test code = SCcutoff <200 NG/ML BARBITURN) URN BENZODIAZEPINE (test code = SCcutoff <200 NG/ML BENZOURN) URN OPIATES (test code = OPIATURN) SCcutoff <300 NG/ML URN PHENCYCLIDINE (PCP) (test code SCcutoff <25 NG/ML = PHENCURN) CBC W/AUTO [id number] 16:24:00 Test Item Value Reference Range Interpretation Comments WHITE BLOOD CELL (test code = 9.1 K/mm3 4.1-12.1 N WBC) RED BLOOD CELL (test code = RBC) 4.37 M/mm3 3.8-5.5 N HEMOGLOBIN (test code = HGB) 12.7 G/DL 10.6-15.8 N HEMATOCRIT (test code = HCT) 39.0 % 31.8-47.4 N MEAN CELL VOLUME (test code = 89.2 fL 80.1-101.1 N MCV) MEAN CELL HGB (test code = MCH) 29.1 pg 25.3-35.3 N MEAN CELL HGB CONCETRATION (test 32.6 G/DL 32.7-35.1 L code = MCHC) RED CELL DISTRIBUTION WIDTH 13.8 % 12.2-16.4 N (test code = RDW) RED CELL DISTRIBUTION WIDTH 44.7 fL 36.4-46.3 N (test code = RDW-SD) PLATELET COUNT (test code = PLT) 394 K/mm3 155-337 H MEAN PLATELET VOLUME (test code 9.1 fL 6.8-11.2 N = MPV) GRANULOCYTE % (test code = GR%) 69.7 % 37.8-82.6 N IMMATURE GRANULOCYTE % (test 0.4 % 0.0-2.0 N code = IG%) LYMPHOCYTE % (test code = LY%) 24.7 % 14.1-45.4 N MONOCYTE % (test code = MO%) 4.3 % 2.5-11.7 N EOSINOPHIL % (test code = EO%) 0.8 % 0.0-6.2 N BASOPHIL % (test code = BA%) 0.1 % 0.0-2.1 N NUCLEATED RBC % (test code = 0.0 /100WBC% 0.0-1.0 N NRBC%) GRANULOCYTE # (test code = GR#) 6.36 k/mm3 2.0-13.7 N IMMATURE GRANULOCYTE # (test 0.04 K/mm3 0.00-0.03 H code = IG#) LYMPHOCYTE # (test code = LY#) 2.25 K/mm3 0.6-3.8 N MONOCYTE # (test code = MO#) 0.39 K/mm3 0.11-0.59 N EOSINOPHIL # (test code = EO#) 0.07 K/mm3 0.0-0.4 N BASOPHIL # (test code = BA#) 0.01 K/mm3 0.0-0.1 N NUCLEATED RBC # (test code = 0.00 K/mm3 0.0-0.05 N NRBC#) POCT-GLUCOSE [id number] 13:18:00 Test Item Value Reference Range Interpretation Comments POC-GLUCOSE METER 104 mg/dL 70-110 TESTED AT [facility] [address] [facility]) (test code [facility] = 1538) [place] [address] RAD, FOOT, MIN 3 VIEWS, [id number] 13:02:00Reason for exam:->FOOT pain, diabeticFINAL REPORT RIGHT FOOT 3 VIEWS HISTORY: Foot pain, diabetes, wound in plantar aspect of foot, fourth and fifth toe numbness COMPARISON: None FINDINGS: AP, oblique, and lateral views of the right foot were obtained. No fracture or dislocation are identified. No degenerative or erosive changes are visualized. No radiographic evidence of osteomyelitis. Soft tissue swelling in the plantar aspect of the forefoot plantar to the MTP joints, which may correlate with the history of a wound. No radiopaque foreign body or soft tissue gas are seen with certainty. IMPRESSION: 1. No fracture or acute bony abnormalities are visualized in the right foot. No radiographic evidence of osteomyelitis. Signed: Davina Elyeport Verified Date/Time: 11/30/2017 13:02:22 Reading Location: [facility] Radiology Reading Room PREGNANCY SCREEN, [id number] 12:37:00 Test Item Value Reference Range Interpretation Comments TEST URINE (BEAKER) (test Negative code = 583) BASIC METABOLIC [id number] 12:35:00 Test Item Value Reference Range Interpretation Comments SODIUM (BEAKER) 144 meq/L 135-148 (test code = 381) POTASSIUM (BEAKER) 4.0 meq/L 3.5-5.5 (test code = 379) CHLORIDE (BEAKER) 107 meq/L 98-106 H (test code = 382) CO2 (BEAKER) (test 24 meq/L 20-31 code = 355) BLOOD UREA NITROGEN 9 mg/dL 10-26 L (BEAKER) (test code = 354) CREATININE (BEAKER) 0.90 mg/dL 0.50-1.20 (test code = 358) GLUCOSE RANDOM 92 mg/dL 70-110 (BEAKER) (test code = 652) CALCIUM (BEAKER) 9.6 mg/dL 8.5-10.5 (test code = 697) EGFR (BEAKER) (test 84 mL/min/1.73 ESTIMA DAVID GFR IS code = 1092) sq m NOT ACCURATE CREATININE CLEARANCE IN PREDICTING GLOMERULAR FILTRATION RATE . ESTIMATED GFR I S NOT APPLICABLE FOR DIALYSIS PATIEN TS. CBC W/PLT COUNT & AUTO [id number] 12:27:00 Test Item Value Reference Range Interpretation Comments WHITE BLOOD CELL COUNT 9.4 K/ L 4.0-10.0 (BEAKER) (test code = 775) RED BLOOD CELL COUNT 4.36 M/ L 4.00-5.00 (BEAKER) (test code = 761) HEMOGLOBIN (BEAKER) 12.6 GM/DL 12.0-15.0 (test code = 410) HEMATOCRIT (BEAKER) 38.0 % 36.0-45.0 (test code = 411) MEAN CORPUSCULAR VOLUME 87.2 fL 82.0-99.0 (BEAKER) (test code = 753) MEAN CORPUSCULAR 28.9 pg 27.0-33.0 HEMOGLOBIN (BEAKER) (test code = 751) MEAN CORPUSCULAR 33.1 GM/DL 32.0-36.0 HEMOGLOBIN CONC (BEAKER) (test code = 752) RED CELL DISTRIBUTION 14.5 % 12.0-15.0 WIDTH (BEAKER) (test code = 412) PLATELET COUNT (BEAKER) 398 K/CU MM 150-430 (test code = 756) MEAN PLATELET VOLUME 8.1 fL 6.5-10.5 (BEAKER) (test code = 754) NUCLEATED RED BLOOD 2 /100 WBC 0-0 H Smear re viewed. CELLS (BEAKER) (test Results confirmed. code = 413) NEUTROPHILS RELATIVE 67 % PERCENT (BEAKER) (test code = 429) LYMPHOCYTES RELATIVE 22 % PERCENT (BEAKER) (test code = 430) MONOCYTES RELATIVE 9 % PERCENT (BEAKER) (test code = 431) EOSINOPHILS RELATIVE 2 % PERCENT (BEAKER) (test code = 432) BASOPHILS RELATIVE 0 % PERCENT (BEAKER) (test code = 437) NEUTROPHILS ABSOLUTE 6.20 K/ L 1.80-8.00 COUNT (BEAKER) (test code = 670) LYMPHOCYTES ABSOLUTE 2.00 K/ L 1.48-4.50 COUNT (BEAKER) (test code = 414) MONOCYTES ABSOLUTE 0.80 K/ L 0.00-1.30 COUNT (BEAKER) (test code = 415) EOSINOPHILS ABSOLUTE 0.20 K/ L 0.00-0.50 COUNT (BEAKER) (test code = 416) BASOPHILS ABSOLUTE 0.00 K/ L 0.00-0.20 COUNT (BEAKER) (test code = 417) Notes Date/Time Note Provider Source 2022-08-23 07:59:00-00:00 [facility] ([facility]) EMERGENCY PROVIDER REPORT REPORT#:[id number] REPORT STATUS: Signed DATE:08/23/22 TIME: 0759 PATIENT: YONATAN PHIPPS UNIT #: [id number] ROOM/BED: AGE: 46 SEX: F PCP PHYS: Undefined Provider SERVICE AUTHOR: Gorge Rogers MD * ALL edits or amendments must be made on the el ectronic/computer document * HPI-General Illness Free Text HPI Notes Free Text HPI Notes 46-year-old female with a past medical history o f diabetes, hypertension, bipolar, who presents with vaginal abscess. Francesca ent states she first noticed Sunday has been worsening since onset. Today sh e woke up with 10 out of 10 pain. In past she has had abscess lanced. No med s taken prior to arrival. General Initial Greet Date/Time 08/23/22 0637 Presentation Chief Complaint __ (abscess) Review of Systems ROS Statements All systems rev neg except as marked. Past Medical History - Adult Stated Complaint BOIL ON VAGINA Allergies Coded Allergies: divalproex sodium (From DEPAKOTE) (Severe, HAIR LOSS 10/11/20) trazodone (Intermediate, UNKNOWN 08/23/22) Home Medications Active Scripts ONDANSETRON ODT (ZOFRAN ODT) 4 MG PO Q8H PRN PRN NAUSEA/VOMITING ONDANSETRON ODT (ZOFRAN ODT) 4 MG PO Q8H PRN HI N NAUSEA/VOMITING #15 TABS Prov: 10/11/20 IBUPROFEN (ADVIL) 400 MG PO Q6H PRN PAIN IBUPROFEN (ADVIL) 400 MG PO Q6H PRN PAIN #60 TA BS Prov: 10/11/20 ACETAMINOPHEN (TYLENOL) 325 MG PO Q6H PRN PRN PA IN ACETAMINOPHEN (TYLENOL) 325 MG PO Q6H PRN PRN P AIN #60 TABS Prov: 10/11/20 Reported Medications HYDROCHLOROTHIAZIDE (HCTZ) 12.5 MG PO BID TERBINAFINE (LamISIL) 250 MG PO DAILY metFORMIN (GLUCOPHAGE) 1,000 MG PO BID AMPHETAMINE/DEXTROAMPHETAMINE SALTS (ADDERALL) 2 0 MG PO DAILY GABAPENTIN (NEURONTIN) 300 MG PO TID OLANZapine (ZyPREXA) 10 MG PO BID PANTOPRAZOLE DR (PROTONIX) 40 MG PO DAILY SERTRALINE (ZOLOFT) 200 MG PO DAILY LISINOPRIL (ZESTRIL) 20 MG PO BID Calculated Suicide Risk (nurs) No risk Pt reports no significant: P ast surgical history, Family history, Social history Past Medical History: Reports: Depression/mood disorder (Bipolar), Aye betes mellitus, Hypertension, Seizure disorder. Additional Family History NC to pt's condition Alcohol Use Denies EtOH use Drug Use Denies recreational drugs Smoking status for patients 13 years old or olde r: Never Smoker Physical Exam Vital Signs Vital Signs First Documented: Result Date Time Pulse Ox 99 08/23 0644 B/P 102/58 08/23 0644 B/P Mean 72 08/23 0644 O2 Delivery Room air 08/23 644 Temp 36.8 08/23 644 Pulse 84 08/23 644 Resp 18 08/23 644 Last Documented: Result Date Time Pulse Ox 99 08/23 0644 B/P 102/58 08/23 0644 B/P Mean 72 08/23 644 O2 Delivery Room air 08/23 06 Temp 36.8 08/23 644 Pulse 84 08/23 644 Resp 18 08/23 644 Review of Vital Signs Reviewed Basic Physical Exam Basic PE GEN: Well appearing /NAD, HEAD: Atraumatic/NC, EYES: PERRL, conj clear, ENT: Membranes moist, NECK: Supple, RESP: No res p distress, CV: Reg rate rhythm, ABD: Soft/non-tender , EXT: No gross abnormality, SKIN: No rashes, warm/ dry, NEURO: alert oriented, NEURO: gross movemen t NL, PSYCH: NL thought content Physical Exam Genitourinary Text/Dict Notes 1cm abscess over mid labia External Genitalia Labial abscess R. Procedures Incis Drainage Abscess #1 Text/Dict Note 4 cc lidocaine 1% without epinephrine used for a nesthesia. 27-gauge needle. Area cleaned with alcohol wipe Stab incision made with 11 blade. Small amount o f pus released from wound. No complications. Re-Evaluation MDM ED Course Medication(s) Ordered Medication(s) Ordered: Cardiovascular Drugs Sig/Melissa Start time Last Medication Dose Route Stop Time Status Admin Lidocaine HCl 5 ML ONCE ONE 08/23 730 DC 08/23 I-DERMAL 08/23 Patient Discharge Departure Vital Signs/Condition Vital Signs First Documented: Result Date Time Pulse Ox 99 08/23 644 B/P 102/58 08/23 0644 B/P Mean 72 08/23 0644 O2 Delivery Room air 08/23 644 Temp 36.8 08/23 644 Pulse 84 08/23 644 Resp 18 08/23 644 Last Documented: Result Date Time Pulse Ox 99 08/23 644 B/P 102/58 08/23 0644 B/P Mean 72 08/23 644 O2 Delivery Room air 08/23 644 Temp 36.8 08/23 644 Pulse 84 08/23 644 Resp 18 08/23 644 All vital signs available at the time of this en try have been reviewed. Clinical Impression Clinical Impression Primary Impression: Abscess, vagina Disposition Decision Discharge )( Discharged to Home Yes )( Time 0805 )( Date 08/23/22 Discharge/Care Plan (Auto) Prescriptions Current Visit Scripts CLINDAMYCIN HCL (CLEOCIN) 300 MG PO Q6H CLINDAMYCIN HCL (CLEOCIN) 300 MG PO Q6H #40 CAP S IBUPROFEN (MOTRIN) 800 MG PO TID PRN PRN PAIN IBUPROFEN (MOTRIN) 800 MG PO TID PRN PRN PAIN #30 TABS Patient Instructions Abscess Abx Tx Referrals Provider Referral: Gary Koo MD Address: [address] [address] Provider Referral: Anni Siddiqui MD Address: [address] [place] [address] Departure Forms PCP LIST WORK/SCHOOL EXCUSE VARIABLE May return to work/school 08/25/22 at 0807 RPT #:[id number] END OF REPORT 2021-09-28 11:23:00-00:00 [facility] ([facility]) EMERGENCY PROVIDER REPORT REPORT#:[id number] REPORT STATUS: Signed DATE:09/28/21 TIME: 1123 PATIENT: YONATAN PHIPPS UNIT #: [id number] ROOM/BED: AGE: 46 SEX: F PCP PHYS: Jeremías Onofre MD SERVICE AUTHOR: Zhou Parson MD * ALL edits or amendments must be made on the el ectronic/computer document * HPI-Syncope Free Text HPI Notes Free Text HPI Notes 46-year-old history of CAD with stent, a neurysms, asthma, Covid 4 months prior presents with concern for syncope. 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 Reports usually chest pain is rating to left arm. Denies smoking drinking or drugs General Initial Greet Date/Time 09/28/21 1026 Provider in Triage HPI Chief Complaint Shortness of breath, weakness PE General/Const No acute distress Respiratory/Chest No respiratory distress Skin Color normal Neurologic Alert, Oriented X3, Speech normal Presentation Chief Complaint Collapsed suddenly Syncope Description Single episode Hx Obtained From Patient, Family )( Onset Occurred Sudden Review of Systems ROS Statements All systems rev neg except as marked. Free Text ROS Notes Free Text ROS Notes Syncope Past Medical History - Adult Stated Complaint COUGH Allergies Coded Allergies: divalproex sodium (From DEPAKOTE) (Severe, HAIR LOSS 10/11/20) Home Medications Active Scripts ONDANSETRON ODT (ZOFRAN ODT) 4 MG PO Q8H PRN PRN NAUSEA/VOMITING ONDANSETRON ODT (ZOFRAN ODT) 4 MG PO Q8H PRN HI N NAUSEA/VOMITING #15 TABS Prov: 10/11/20 IBUPROFEN (ADVIL) 400 MG PO Q6H PRN PAIN IBUPROFEN (ADVIL) 400 MG PO Q6H PRN PAIN #60 TA BS Prov: 10/11/20 ACETAMINOPHEN (TYLENOL) 325 MG PO Q6H PRN PRN PA IN ACETAMINOPHEN (TYLENOL) 325 MG PO Q6H PRN PRN P AIN #60 TABS Prov: 10/11/20 Reported Medications HYDROCHLOROTHIAZIDE (HCTZ) 12.5 MG PO BID TERBINAFINE (LamISIL) 250 MG PO DAILY metFORMIN (GLUCOPHAGE) 1,000 MG PO BID AMPHETAMINE/DEXTROAMPHETAMINE SALTS (ADDERALL) 2 0 MG PO DAILY GABAPENTIN (NEURONTIN) 300 MG PO TID OLANZapine (ZyPREXA) 10 MG PO BID PANTOPRAZOLE DR (PROTONIX) 40 MG PO DAILY SERTRALINE (ZOLOFT) 200 MG PO DAILY LISINOPRIL (ZESTRIL) 20 MG PO BID Past Medical History: Reports: Depression/mood disorder (Bipolar), Aye betes mellitus, Hypertension, Seizure disorder. Additional Family History [place] to pt's condition Alcohol Use Denies EtOH use Drug Use Denies recreational drugs Smoking status: Smoking status for patients 13 years old or old er: Never Smoker Physical Exam Vital Signs Vital Signs First Documented: Result Date Time Pulse Ox 98 09/28 1021 B/P 143/69 09/28 1021 B/P Mean 93 09/28 1021 O2 Delivery Room air 09/28 1021 Temp 98.6 09/28 1021 Pulse 82 09/28 1021 Resp 24 09/28 1021 Last Documented: Result Date Time Pulse Ox 99 09/28 1428 B/P 123/68 09/28 1428 B/P Mean 86 09/28 1428 O2 Delivery Room air 09/28 1428 Pulse 80 09/28 1428 Resp 18 09/28 1428 Temp 98.6 09/28 1021 Review of Vital Signs Reviewed Basic Physical Exam Basic PE HEAD: Atraumatic/NC, EYES: PERRL, conj clear, ENT: Membranes moist, NECK: Supple, ABD: Soft/non- tender, UP EXT: No gross abnormal, SKIN: No rashes, warm/dry, PSYCH: NL thought content Focused PE General/Const General/Const Awake, Alert Resp/Chest Respiratory/Chest Atraumatic, Breath sounds NL, Breath sounds = bilat Cardiovascular Cardiovascular Heart rate NL, Regular rhythm, H eart sounds NL MS Lower Extrem Lower Ext/Pelvis/MS Atraumatic, Inspection NL, Full range of motion Neurologic Neurologic Oriented X3, Speech NL, No motor def icits Interpretation Diagnostics Lab Results Interpretation Results Laboratory Tests 09/28/21 1135: [Embedded Image Not Available] Laboratory Tests: 09/28 1135 Chemistry Sodium (133 - 144 mmol/L) 137.0 Potassium (3.5 - 5.1 mmol/L) 3.2 L Chloride (95 - 105 mmol/L) 104 Carbon Dioxide (21 - 32 mmol/L) 25 Anion Gap (4.0 - 15.0 GAP calc) 8.0 BUN (7 - 18 MG/DL) 9 Creatinine (0.55 - 1.30 MG/DL) 1.03 Glomerular Filtr Rate (>60 estGFR) 71 Glucose (70 - 110 MG/DL) 103 Calcium (8.5 - 10.1 MG/DL) 9.1 Total Bilirubin (0.00 - 1.00 MG/DL) 0.30 Direct Bilirubin (0.00 - 0.30 MG/DL) 0.10 Indirect Bilirubin (0.2 - 1.3 MG/DL) 0.20 AST (15 - 37 Unit/L) 24 ALT (12 - 78 Unit/L) 33 Total Alk Phosphatase (45 - 117 Unit/L) 51 Troponin I (0.000 - 0.045 NG/ML) < 0.015 Total Protein (6.4 - 8.2 G/DL) 7.7 Albumin (3.4 - 5.0 G/DL) 3.7 Albumin/Globulin Ratio (1.2 - 2.2 RATIO) 0.9 L Specimen Appearance (1 NORMAL Index/DL) 1 PABLO L <2 MG Specimen Hemolysis (1 NORMAL Index/DL) 2 TRACE 10-25 MG Coagulation D-Dimer (0 - 500 FEUng/mL) 649 H Hematology WBC (4.1 - 12.1 K/mm3) 11.1 RBC (3.8 - 5.5 M/mm3) 4.91 Hgb (10.6 - 15.8 G/DL) 13.9 Hct (31.8 - 47.4 %) 41.9 MCV (80.1 - 101.1 fL) 85.3 MCH (25.3 - 35.3 pg) 28.3 MCHC (32.7 - 35.1 G/DL) 33.2 RDW (12.2 - 16.4 %) 13.6 Plt Count (155 - 337 K/mm3) 432 H MPV (6.8 - 11.2 fL) 9.3 Gran % (37.8 - 82.6 %) 76.6 Lymph % (Auto) (14.1 - 45.4 %) 16.5 Garfield % (Auto) (2.5 - 11.7 %) 5.3 Eos % (Auto) (0.0 - 6.2 %) 0.8 Baso % (Auto) (0.0 - 2.1 %) 0.3 Gran # (2.0 - 13.7 k/mm3) 8.48 Lymph # (Auto) (0.6 - 3.8 K/mm3) 1.83 Garfield # (Auto) (0.11 - 0.59 K/mm3) 0.59 Eos # (Auto) (0.0 - 0.4 K/mm3) 0.09 Baso # (Auto) (0.0 - 0.1 K/mm3) 0.03 Immature Gran % (0.0 - 2.0 %) 0.5 Nucleated RBC % (0.0 - 1.0 /100WBC%) 0.0 Nucleated RBCs # (0.0 - 0.05 K/mm3) 0.00 Serology SARS-CoV-2 Ag (Rapid) (Neg) Negative Urines Urine Color (YELLOW DESCRIPT) YELLOW Urine Appearance (CLEAR DESCRIPT) CLEAR Urine pH (4.6 - 8.0 pH UNITS) 7.5 Ur Specific [place] (1.001 - 1.035 SG) 1.029 Urine Protein (<30 (1+) mg/dL) 20 (TRACE) H Urine Glucose (UA) (0 (NORMAL) mg/dL) NORMAL (0 ) Urine Ketones ((NEG) 0 mg/dL) 20 (1+) H Urine Blood (0 (NEG) mg/dL) NEGATIVE (0.00) Urine Nitrite (NEG SCREEN) NEGATIVE (0) Urine Bilirubin ((NEG) 0 mg/dL) NEGATIVE (0.0) Urine Urobilinogen (<2.0 (1+) mg/Dl) NORMAL (0) Ur Leukocyte Esterase ((NEG) 0 Leuk/mcL) NEGATI VE (0) Urine RBC (0 - 3 #RBC/HPF) 0-3 Urine WBC (0 - 3 #WBC/HPF) 0-3 Ur Squamous Epith Cells (NONE - SQepi /UL) FEW >2 Urine Bacteria (NONE - FEW /HPF) FEW >1 Urine Mucus (NONE /LPF) RARE Urine Yeast (NONE /HPF) RARE >0 H Urine HCG, Qual (NEG) NEGATIVE Recent Impressions: RADIOLOGY - XR CHEST 1 V 09/28 1201 Report Impression - Status: SIGNED Entered: 09/28/2021 1231 IMPRESSION: No focal consolidation. Impression By: Augusto Chairez MD CAT SCAN - CTA CHEST FOR PE 09/28 1433 Report Impression - Status: SIGNED Entered: 09/28/2021 1538 IMPRESSION: No CTA evidence to suggest a pulmonary embolism, evaluation at subsegmental levels is limited due to contrast b olus timing. No focal consolidation. Impression By: Augusto Chairez MD ECG #1 Interpretation Date 09/28/21 Time 1100 Rate 81 ECG Interpretation Note Normal sinus Re-Evaluation MDM Free Text MDM Notes Free Text MDM Notes Patient in ER for approximately 5 hours without symptoms. Discussed discharge return precautions. Low susp for acs ED Course Medication(s) Ordered Medication(s) Ordered: Autonomic Drugs Sig/Melissa Start time Last Medication Dose Route Stop Time Status Admin Albuterol/Ipratropium 3 ML X1ED STA 09/28 1123 DC 09/28 NEB 09/28 1124 1200 Electrolytic, Caloric, And Nash Sig/Melissa Start time Last Medication Dose Route Stop Time Status Admin Potassium Chloride 40 MEQ ONCE ONE 09/28 1315 D C 09/28 PO 09/28 1316 1336 Patient Discharge Departure Vital Signs/Condition Vital Signs First Documented: Result Date Time Pulse Ox 98 09/28 1021 B/P 143/69 09/28 1021 B/P Mean 93 09/28 1021 O2 Delivery Room air 09/28 1021 Temp 98.6 09/28 1021 Pulse 82 09/28 1021 Resp 24 09/28 1021 Last Documented: Result Date Time Pulse Ox 99 09/28 1428 B/P 123/68 09/28 1428 B/P Mean 86 09/28 1428 O2 Delivery Room air 09/28 1428 Pulse 80 09/28 1428 Resp 18 09/28 1428 Temp 98.6 09/28 1021 All vital signs available at the time of this en try have been reviewed. Condition Improved Clinical Impression Clinical Impression Primary Impression: Syncope Time of Impression 1548 Disposition Decision Discharge )( Discharged to Home Yes )( Time 1548 )( Date 09/28/21 Discharge/Care Plan Patient Instructions ED Dizziness, Uncertain Cau se Referrals Johnnie Adamson MD Electronically Signed by Zhou Parson MD on at 1915 RPT #:[id number] END OF REPORT 2021-09-28 10:34:00-00:00 [facility] ([facility]) EMERGENCY PROVIDER REPORT REPORT#:[id number] REPORT STATUS: Signed DATE:09/28/21 TIME: 1034 PATIENT: YONATAN PHIPPS UNIT #: [id number] ROOM/BED: AGE: 46 SEX: F PCP PHYS: Jeremías Onofre MD SERVICE AUTHOR: Elsie De Guzman STEEL SPAR OPERATOR * ALL edits or amendments must be made on the [employer]/computer document * Provider in Triage - Adult Provider in Triage Initial Greet Date/Time 09/28/21 1026 Greet Note I have greeted and performed a focused rapid initial assessment of this patient. A comprehensive ED assessment and evaluation of the patient, analysis of all test results, and completion of the medical deci narciso-making process will be conducted by additional ED providers. HPI Chief Complaint Shortness of breath, weakness PE General/Const No acute distress Respiratory/Chest No respiratory distress Skin Color normal Neurologic Alert, Oriented X3, Speech normal Progress Weakness and a fall in the parking lot complaini ng of ongoing shortness of breath since April 2021. MSE Not Complete The medical screening exam i s not complete. Further evaluation and/or treatment is required. The patient will be re-directed to the emergency department. PMH-Provider in Triage Stated Complaint COUGH Allergies Coded Allergies: divalproex sodium (From DEPAKOTE) (Severe, HAIR LOSS 10/11/20) Home Medications Active Scripts ONDANSETRON ODT (ZOFRAN ODT) 4 MG PO Q8H PRN PRN NAUSEA/VOMITING ONDANSETRON ODT (ZOFRAN ODT) 4 MG PO Q8H PRN HI N NAUSEA/VOMITING #15 TABS Prov: 10/11/20 IBUPROFEN (ADVIL) 400 MG PO Q6H PRN PAIN IBUPROFEN (ADVIL) 400 MG PO Q6H PRN PAIN #60 TA BS Prov: 10/11/20 ACETAMINOPHEN (TYLENOL) 325 MG PO Q6H PRN PRN PA IN ACETAMINOPHEN (TYLENOL) 325 MG PO Q6H PRN PRN P AIN #60 TABS Prov: 10/11/20 Reported Medications HYDROCHLOROTHIAZIDE (HCTZ) 12.5 MG PO BID TERBINAFINE (LamISIL) 250 MG PO DAILY metFORMIN (GLUCOPHAGE) 1,000 MG PO BID AMPHETAMINE/DEXTROAMPHETAMINE SALTS (ADDERALL) 2 0 MG PO DAILY GABAPENTIN (NEURONTIN) 300 MG PO TID OLANZapine (ZyPREXA) 10 MG PO BID PANTOPRAZOLE DR (PROTONIX) 40 MG PO DAILY SERTRALINE (ZOLOFT) 200 MG PO DAILY LISINOPRIL (ZESTRIL) 20 MG PO BID Past Medical History: Reports: Depression/mood disorder (Bipolar), Aye betes mellitus, Hypertension, Seizure disorder. Alcohol Use Denies EtOH use Drug Use Denies recreational drugs Smoking status: Smoking status for patients 13 years old or old er: Never Smoker Electronically Signed by Elsie De Guzman STEEL SPAR OPERATOR on 09/28 at 1149 RPT #:[id number] END OF REPORT 2021-04-11 21:11:00-00:00 [facility] ([facility]) EMERGENCY PROVIDER REPORT REPORT#:[id number] REPORT STATUS: Signed DATE:04/11/21 TIME: 2110 PATIENT: YONATAN PHIPPS UNIT #: [id number] ROOM/BED: AGE: 45 SEX: F PCP PHYS: [facility] SERVICE AUTHOR: Colby Do MD * ALL edits or amendments must be made on the [employer]/computer document * HPI-Headache Free Text HPI Notes Free Text HPI Notes Patient presents to the ED with 4 days of migrai ne headache. Patient is had similar symptoms in the past. Pain is constant a nd all over. Patient states she feels dizzy. Appears uncomfortable but in no distress. Communicating and walking without difficulty. General Initial Greet Date/Time 04/11/21 1723 Presentation Chief Complaint Migraine headache Sudden in Onset? No Severity: Onset Moderate Risk-Headache Risk Stratification )( Subarachnoid Hemorrhage Risk factors reviewed )( IC Mass Lesion Risk factors reviewed Review of Systems Focused Review of Systems Constitutional Denies: Chills, Fever, Lethargy. Eyes Denies: Diplopia, Eye pain bilat, Redness bilat, Visual loss bilat. Ears/Nose/Throat Denies: Earache bilat, Nasal congestion, Sore th roat. GI Denies: Abdominal pain, Diarrhea, Nausea, Vomiti ng. Musculoskeletal Denies: Back pain, Extremity pain. Skin Denies: Diaphoresis, Rash. Neurologic Reports: Dizziness, Headache. Denies: Abnormal m ovement, Bladder dysfunction, Bowel dysfunction, Change LO C, Confusion, Focal weakness, Generalized weakness, Lightheaded, Numbness, Problem walking, Seizure, Shaking, Slurred speech, Spinning sensation, Syncope, Tingling, Unable to speak, Vision change. Psychiatric Denies: Anxiety, Depression. Past Medical History - Adult Stated Complaint DIZZINESS, MIGRAINED X 4 DAYS Allergies Coded Allergies: divalproex sodium (From DEPAKOTE) (Severe, HAIR LOSS 10/11/20) Home Medications Active Scripts ONDANSETRON ODT (ZOFRAN ODT) 4 MG PO Q8H PRN PRN NAUSEA/VOMITING ONDANSETRON ODT (ZOFRAN ODT) 4 MG PO Q8H PRN HI N NAUSEA/VOMITING #15 TABS Prov: 10/11/20 IBUPROFEN (ADVIL) 400 MG PO Q6H PRN PAIN IBUPROFEN (ADVIL) 400 MG PO Q6H PRN PAIN #60 TA BS Prov: 10/11/20 ACETAMINOPHEN (TYLENOL) 325 MG PO Q6H PRN PRN PA IN ACETAMINOPHEN (TYLENOL) 325 MG PO Q6H PRN PRN P AIN #60 TABS Prov: 10/11/20 Reported Medications HYDROCHLOROTHIAZIDE (HCTZ) 12.5 MG PO BID TERBINAFINE (LamISIL) 250 MG PO DAILY metFORMIN (GLUCOPHAGE) 1,000 MG PO BID AMPHETAMINE/DEXTROAMPHETAMINE SALTS (ADDERALL) 2 0 MG PO DAILY GABAPENTIN (NEURONTIN) 300 MG PO TID OLANZapine (ZyPREXA) 10 MG PO BID PANTOPRAZOLE DR (PROTONIX) 40 MG PO DAILY SERTRALINE (ZOLOFT) 200 MG PO DAILY LISINOPRIL (ZESTRIL) 20 MG PO BID Calculated Suicide Risk (nurs) No risk Past Medical History: Reports: Depression/mood disorder (Bipolar), Aye betes mellitus, Hypertension, Seizure disorder. Additional Family History [place] to pt's condition Alcohol Use Denies EtOH use Drug Use Denies recreational drugs Smoking status: Smoking status for patients 13 years old or old er: Never Smoker Physical Exam Vital Signs Vital Signs First Documented: Result Date Time Pulse Ox 99 04/11 180 B/P 143/87 04/11 180 B/P Mean 105 04/11 180 O2 Delivery Room air 04/11 1802 Temp 36.7 04/11 180 Pulse 73 04/11 1802 Resp 17 04/11 1802 Last Documented: Result Date Time Pulse Ox 97 04/11 2110 B/P 138/71 04/11 2110 B/P Mean 93 04/11 2110 O2 Delivery Room air 04/11 2110 Temp 36.7 04/11 2110 Pulse 79 04/11 2110 Resp 16 04/11 2110 Review of Vital Signs Reviewed Focused PE General/Const General/Const Awake, Alert MS Head Head Normocephalic Eyes Eyes PERRL, EOMI, No photophobia, Conjunctiva N L, Temporal arteries NL Ears/Nose/Throat Ears/Nose/Throat Airway patent, Mucous membrane s moist, Pharynx NL, No sinus tenderness MS Neck Neck Supple, No meningismus, Full range of laurence on, No swelling, Non-tender, No masses Resp/Chest Respiratory/Chest Breath sounds NL, Breath soun ds = bilat, No respiratory distress, No rales, No rhonchi, No wheezing Cardiovascular Cardiovascular Heart rate NL, Regular rhythm, H eart sounds NL, Peripheral circulation NL Skin Skin Color NL, No rash, Warm, Dry, Turgor NL Neurologic Neurologic Oriented X3, Speech NL, No m otor deficits, No sensory deficits, CN II - XII intact, Cerebellar NL Psychiatric Psychiatric Affect NL, Mood NL, Cognitive funct ion NL, Thought content NL Interpretation Diagnostics Lab Results Interpretation Results Laboratory Tests 04/11/211808: [Embedded Image Not Available] Laboratory Tests: 04/11 1809 Chemistry Sodium (136 - 145 mmol/L) 139 Potassium (3.5 - 5.1 mmol/L) 3.6 Chloride (98 - 107 mmol/L) 108.0 H Carbon Dioxide (21 - 32 mmol/L) 28.0 Anion Gap (10 - 20) 6.6 L BUN (7 - 18 mg/dL) 8 Creatinine (0.55 - 1.02 mg/dL) 1.00 Glomerular Filtr Rate (>=60 mL/min) > 60 BUN/Creatinine Ratio (10 - 20) 7.7 L Glucose (74 - 106 mg/dL) 97 Calcium (8.5 - 10.1 mg/dL) 8.5 Troponin I (0 - 0.045 ng/mL) < 0.006 Serum , Qual (NEGATIVE) NEGATIVE Hematology WBC (4.5 - 12.5 K/mm3) 7.0 RBC (3.7 - 5.2 mill/mm3) 4.40 Hgb (11.5 - 15.5 gram/dL) 12.4 Hct (36.0 - 46.0 %) 39.1 MCV (80 - 98 fL) 88.9 MCH (27.0 - 33.0 picogram) 28.2 MCHC (33.0 - 36.0 gram/dL) 31.7 L RDW (11.6 - 16.2 %) 14.9 Plt Count (150 - 450 K/mm3) 406 MPV (6.7 - 11.0 fL) 9.4 Re-Evaluation MDM Free Text MDM Notes Free Text MDM Notes Patient states that she feels better and is read y to leave the hospital )( Re-Evaluation/Progress #1 Text/Dict Note Patient states that she cannot take sumatriptan as it does not help her. Came to the desk making racist statements claiming th at she is not being helped because she is not . Patient directed no t to make the statements that we will order her a different medication. )( Re-Eval Status Unchanged ED Course Medication(s) Ordered Medication(s) Ordered: Central Nervous System Agents Sig/Melissa Start time Last Medication Dose Route Stop Time Status Admin Acetaminophen/ 2 UDTAB X1ED STA 04/11 2008 DC 0 04/11 Butalbital/Caffeine PO 04/11 Levetiracetam 1,000 MG ONCE ONE 04/11 1945 DC 0 04/11 PO 04/11 Miscellaneous Therapeutic Agen Sig/Melissa Start time Last Medication Dose Route Stop Time Status Admin Sumatriptan Succinate 50 MG X1ED STA 04/11 1907 DC PO 04/11 1908 Patient Discharge Departure Vital Signs/Condition Vital Signs First Documented: Result Date Time Pulse Ox 99 04/11 180 B/P 143/87 04/11 180 B/P Mean 105 04/11 1802 O2 Delivery Room air 04/11 1802 Temp 36.7 04/11 180 Pulse 73 04/11 180 Resp 17 04/11 1802 Last Documented: Result Date Time Pulse Ox 97 04/11 2110 B/P 138/71 04/11 2110 B/P Mean 93 04/11 2110 O2 Delivery Room air 04/11 2110 Temp 36.7 04/11 2110 Pulse 79 04/11 2110 Resp 16 04/11 2110 All vital signs available at the time of this en try have been reviewed. Clinical Impression Clinical Impression Primary Impression: Headache Disposition Decision Discharge )( Discharged to Home Yes )( Time 2110 )( Date 04/11/21 Discharge/Care Plan Patient Instructions ED Headache Unspecified Departure Forms PCP LIST Electronically Signed by Colby Do MD on 0 04/12/21 at 1820 [facility] #:[id number] END OF REPORT 2020-10-11 12:34:00-00:00 [facility] ([facility]) EMERGENCY PROVIDER REPORT REPORT#:[id number] REPORT STATUS: Signed DATE:10/11/20 TIME: 1234 PATIENT: YONATAN PHIPPS UNIT #: [id number] ROOM/BED: AGE: 45 SEX: F PCP PHYS: [facility] AUTHOR: Minh Boothe MD * ALL edits or amendments must be made on the [employer]/computer document * HPI-Abd Pain F 40 and Over General Confirmed Patient Yes Initial Greet Date/Time 10/11/20 1152 Presentation Chief Complaint Abdominal pain, Nausea Hx Obtained From Patient, EMS Sudden in Onset? No Onset Occurred Yesterday Symptom Duration Since onset Progression since Onset Gradually worsening Caused by No trauma by history Location Diffuse Quality Burning, Painful Free Text HPI Notes Free Text HPI Notes 45-year-old, past medical history of IBS, seizur es for which on Keppra, depression, hypertension, bipolar disorder, not only levelable medications, reflux, peptic ulcers. Patient received getting her first dose of her Pfizer Covid vaccine yesterday, reports symptoms of her typical IBS flares, but significantly worse than usual. Nausea without v omiting. No other GI or symptoms, no other cardiopulmonary sympt oms, no fever, no neurologic symptoms, no new back pain. Patient reports many chronic s ymptoms, I considered him negative has been at baseline. Patient denies ever having a CT scan for her abd omen. Reports prior tubal ligation hysterectomy, denies other abdominal zavala rgery Risk-Abd Pain F 40 and Over )( Abdominal Aortic Aneurysm Risk factors review ed Review of Systems ROS Statements All systems rev neg except as marked. Free Text ROS Notes Free Text ROS Notes GI: endorses abdominal pain and nausea General: denies fevers, denies rigors Cardiovascular: denies chest pain, denies sycnop e Pulmonary: denies cough, denies SOB : denies discharge, denies change in urinary h abits Neuro: denies acute focal neurologic symptoms Also of note: - Chronic conditions/symptoms are considered neg ative if at baseline - Additional ROS may be present in HPI Past Medical History - Adult Stated Complaint ABDOMINAL PAIN Allergies Coded Allergies: divalproex sodium (From DEPAKOTE) (Severe, HAIR LOSS 10/11/20) Home Medications Reported Medications HYDROCHLOROTHIAZIDE (HCTZ) 12.5 MG PO BID TERBINAFINE (LamISIL) 250 MG PO DAILY metFORMIN (GLUCOPHAGE) 1,000 MG PO BID AMPHETAMINE/DEXTROAMPHETAMINE SALTS (ADDERALL) 2 0 MG PO DAILY GABAPENTIN (NEURONTIN) 300 MG PO TID OLANZapine (ZyPREXA) 10 MG PO BID PANTOPRAZOLE DR (PROTONIX) 40 MG PO DAILY SERTRALINE (ZOLOFT) 200 MG PO DAILY LISINOPRIL (ZESTRIL) 20 MG PO BID Review of Nursing Notes Rev avail, and agree Past Medical History: Reports: Depression/mood disorder (Bipolar), Aye betes mellitus, Hypertension, Seizure disorder. Additional Family History NC to pt's condition Alcohol Use Denies EtOH use Drug Use Denies recreational drugs Smoking status for patients 13 years old or olde r: Never Smoker Physical Exam Vital Signs Vital Signs First Documented: Result Date Time Pulse Ox 97 10/11 1152 B/P 130/90 10/11 1152 B/P Mean 103 10/11 1152 O2 Delivery Room air 10/11 1152 Temp 36.6 10/11 1152 Pulse 71 10/11 1152 Resp 18 10/11 1152 Last Documented: Result Date Time Pulse Ox 97 10/11 1152 B/P 130/90 10/11 1152 B/P Mean 103 10/11 1152 O2 Delivery Room air 10/11 1152 Temp 36.6 10/11 1152 Pulse 71 10/11 1152 Resp 18 10/11 1152 Review of Vital Signs Reviewed Basic Physical Exam Basic PE HEAD: Atraumatic/NC, EYES: PERRL, conj clear, ENT: Membranes moist, NECK: Supple, EXT: No gross abnormality, SKIN: No rashes, warm/dry, NEURO: alert oriented, NEURO: gross movement NL, PSYCH: NL t hought content Focused PE General/Const General/Const Awake, Alert Resp/Chest Respiratory/Chest Breath sounds NL, Breath soun ds = bilat, No respiratory distress, No rales, No rhonchi, No wheezing Cardiovascular Cardiovascular Heart rate NL, Regular rhythm, H eart sounds NL, Peripheral circulation NL Abdomen/GI Abdomen/GI Atraumatic, Soft, No guarding, No re bound, No distention, No palpable mass, Questionable diffuse TTP MS Back Back Inspection NL, Non-tender, No CVA tenderne ss Skin Skin Color NL, Warm, Dry, Turgor NL Neurologic Neurologic Oriented X3, Speech NL, No motor def icits, No sensory deficits Interpretation Diagnostics Lab Results Interpretation Results Laboratory Tests 10/11/20 1245: [Embedded Image Not Available] Laboratory Tests: 10/11 10/11 10/11 1340 1245 1245 Chemistry Sodium (128 - 145 mmol/L) 139 Potassium (3.5 - 5.1 mmol/L) 3.6 Chloride (98 - 107 mmol/L) 102.0 Carbon Dioxide (22 - 29 mmol/L) 28.6 Anion Gap (10 - 20 mmol/L) 12 BUN (7 - 22 mg/dL) 11 Creatinine (0.55 - 1.3 mg/dL) 0.88 Glomerular Filtr Rate (>=60 mL/min) > 60 BUN/Creatinine Ratio (10 - 20) 12.5 Glucose (70 - 110 mg/dL) 88 Calcium (8.0 - 10.5 mg/dL) 8.6 Total Bilirubin (0.2 - 1.2 mg/dL) 0.30 Direct Bilirubin (0.0 - 0.30 mg/dL) 0.10 AST (10 - 39 U/L) 17 ALT (10 - 69 U/L) 23 Total Alk Phosphatase (50 - 139 U/L) 58 Troponin I (0.00 - 0.056 ng/mL) <0.015 C-Reactive Protein (0 - 0.3 mg/dL) 0.7 H Total Protein (6.1 - 7.8 gram/dL) 7.4 Albumin (3.3 - 4.4 g/dL) 3.7 Globulin (1 - 10 G/DL) 3.7 Albumin/Globulin Ratio (0.75 - 1.50) 1.0 Lipase (144 - 286 Unit/L) 81 L Serum , Qual (NEGATIVE) NEGATIVE Hematology WBC (4.5 - 12.5 K/mm3) 9.9 RBC (3.7 - 5.2 mill/mm3) 5.07 Hgb (11.5 - 15.5 gram/dL) 13.9 Hct (36.0 - 46.0 %) 41.5 MCV (80 - 98 fL) 81.9 MCH (27.0 - 33.0 picogram) 27.4 MCHC (33.0 - 36.0 gram/dL) 33.5 RDW (11.6 - 16.2 %) 13.0 RDW Std Deviation (37.0 - 51.0 fL) 39.3 Plt Count (150 - 450 K/mm3) 451 H MPV (6.7 - 11.0 fL) 9.1 Urines Urine Color (YELLOW) YELLOW Urine Appearance (CLEAR) CLEAR Urine pH (5.0 - 8.0) 6.0 Ur Specific [place] (1.001 - 1.035) 1.025 Urine Protein (Neg - 15 mg/dL) NEGATIVE Urine Glucose (UA) (NEGATIVE mg/dL) NEGATIVE Urine Ketones (NEGATIVE mg/dL) NEGATIVE Urine Blood (NEGATIVE) NEGATIVE Urine Nitrite (NEGATIVE) NEGATIVE Urine Bilirubin (NEGATIVE) NEGATIVE Urine Urobilinogen (0.0 - 0.2 mg/dL) 0.2 Ur Leukocyte Esterase (NEGATIVE uL) NEGATIVE Urine RBC (0 - 5 per HPF) 0-3 Urine WBC (0 - 5 per HPF) 0-5 Ur Epithelial Cells (Few per HPF) Few (2-5/hpf) Urine Bacteria (NONE per HPF) FEW Urine Mucus (NONE - FEW per LPF) FEW Recent Impressions: CAT SCAN - CT ABD PELVIS W/CONT 10/11 1340 Report Impression - Status: SIGNED Entered: 10/11/2020 1414 IMPRESSION: No acute intra-abdominal or intrapelvic patholog y. Stent noted within the branch vessel of the right common femoral ar harpreet without flow suggesting occlusion. Correlate with surgical hi story. Impression By: [email or web address] - Patric Mcgregor M.D. Lab Imaging Statement Laboratory radiographic studies reviewed and con sidered in the medical decision-making. Re-Evaluation MDM Free Text MDM Notes Free Text MDM Notes Patient here with abdominal pain, acute on chron ic pain, reassuring work-up. Has a stent in the femoral with some blo ckage on CT. I discussed the case with radiology, who states that this would not accoun t for the patient's abdominal pain, and this branch does n ot feed any abdominal or pelvic organs, and that it would count as an incidental finding. Re-examine d the patient, no pain in the leg, good perfusion to the l eg. Safe for discharge home with outpatient follow- up. I printed a copy of the CT report for her. )( Re-Evaluation/Progress #1 Time of Re-Eval 1448 )( Re-Eval Status Improved ED Course Medication(s) Ordered Medication(s) Ordered: Central Nervous System Agents Sig/Melissa Start time Last Medication Dose Route Stop Time Status Admin Morphine Sulfate 4 MG X1ED STA 10/11 1215 DC IV 10/11 1216 1224 Diagnostic Agents Sig/Melissa Start time Last Medication Dose Route Stop Time Status Admin Iopamidol 0 .STK-MED ONE 10/11 1330 DC 10/11 .ROUTE 1409 Electrolytic, Caloric, And Nash Sig/Melissa Start time Last Medication Dose Route Stop Time Status Admin Sodium Chloride 1,000 ML X1ED STA 10/11 1215 DC 10/11 IV 10/11 1314 1224 Gastrointestinal Drugs Sig/Melissa Start time Last Medication Dose Route Stop Time Status Admin Al Hydrox/Mg Hydrox/ 30 ML X1ED STA 10/11 1216 DC 10/11 Simethicone PO 10/11 1217 1223 Metoclopramide HCl 10 MG X1ED STA 10/11 1215 DC 10/11 IV 10/11 1216 1223 Patient Discharge Departure Vital Signs/Condition Vital Signs First Documented: Result Date Time Pulse Ox 97 10/11 1152 B/P 130/90 10/11 1152 B/P Mean 103 10/11 1152 O2 Delivery Room air 10/11 1152 Temp 36.6 10/11 1152 Pulse 71 10/11 1152 Resp 18 10/11 1152 Last Documented: Result Date Time Pulse Ox 97 10/11 1152 B/P 130/90 10/11 1152 B/P Mean 103 10/11 1152 O2 Delivery Room air 10/11 1152 Temp 36.6 10/11 1152 Pulse 71 10/11 1152 Resp 18 10/11 1152 All vital signs available at the time of this en try have been reviewed. Clinical Impression Clinical Impression Primary Impression: Abdominal pain Disposition Decision Discharge )( Discharged to Home Yes )( Time 1450 )( Date 10/11/20 Discharge/Care Plan Counseled Regarding Diagnosi s, Lab results, Imaging studies, Need for follow-up, When to return to ED (Auto) Prescriptions Current Visit Scripts ONDANSETRON ODT (ZOFRAN ODT) 4 MG PO Q8H PRN PRN NAUSEA/VOMITING ONDANSETRON ODT (ZOFRAN ODT) 4 MG PO Q8H PRN HI N NAUSEA/VOMITING #15 TABS IBUPROFEN (ADVIL) 400 MG PO Q6H PRN PAIN IBUPROFEN (ADVIL) 400 MG PO Q6H PRN PAIN #60 TA BS ACETAMINOPHEN (TYLENOL) 325 MG PO Q6H PRN PRN PA IN ACETAMINOPHEN (TYLENOL) 325 MG PO Q6H PRN PRN P AIN #60 TABS Take 1-2 Tablets Patient Instructions Abdominal Pain, ED Chronic Pain Additional Instructions As we discussed, it is not clear exactly what is causing your symptoms, but there is no evidence of a sc yuridia or dangerous cause at this at this time. Please return for any concerns including new, worsening , or persistent symptoms. Referrals PRIMARY CARE: 2-3 Days Electronically Signed by Minh Boothe MD on 10/11 at 1645 RPT #:[id number] END OF REPORT 2018-11-08 18:26:00-00:00 [facility] ([facility]) Neurology Consultation Note REPORT#:[id number] REPORT STATUS: Signed DATE:11/08/18 TIME: 1825 PATIENT: YONATAN PHIPPS UNIT #: [id number] ROOM/BED: [address] : 77 AGE: 43 SEX: F ATTEND: Ernie Marquez MD ADM AUTHOR: Robson Duncan MD * ALL edits or amendments must be made on the [employer]/computer document * History of Present Illness HPI Requesting clinician: Bridger Navarro Reason for consult: AMS Chief complaint: Suicidal attempt HPI: 43 yo F with h/o bipolar d/o, glucose intoleranc e, DM, HTN who had attempted suicide and took excessive medications. Pt was b rought to the hospital w AMS and was in a deep sleep. Pt takes many psychotro pic medications including tegretol, vistaril, neurontin, seroquel, zyprexa. Uncertain how many pills and which kind pt took. Pt is currently awake and de nies focal numbness/weakness. No changes in vision or speech. History - Adult longitudinal Past medical history: Reports: Depression/mood disorder (Bipolar), Aye betes mellitus, Hypertension, Seizure disorder. Additional family history: NC to pt's condition Alcohol use: Denies EtOH use Drug use: Denies recreational drugs Smoking status for patients 13 years old or olde r: Never Smoker Medications: Home Medications: Medication Dose/Rte/Freq Days Qty Entered Last Max Daily Dose Reviewed HYDROCHLOROTHIAZIDE 12.5 MG PO BID 06/12/12 (HCTZ) 2307 Strength: 12.5 MG CAP TERBINAFINE (LamISIL) 250 MG PO DAILY 12/21/17 Strength: 250 MG TAB 0949 metFORMIN (GLUCOPHAGE) 1,000 MG PO BID 12/21/17 Strength: 1,000 MG TAB 0949 AMPHETAMINE/DEXTROAMPHETAMINE 20 MG PO DAILY SALTS 0950 (ADDERALL) Strength: 20 MG TAB GABAPENTIN (NEURONTIN) 300 MG PO TID 12/21/17 Strength: 300 MG CAP 0951 OLANZapine (ZyPREXA) 10 MG PO BID 12/21/17 Strength: 10 MG TAB [address] 40 MG PO DAILY 12/21/17 (PROTONIX) 0952 Strength: 40 MG TAB. SERTRALINE (ZOLOFT) 200 MG PO DAILY 12/21/17 Strength: 100 MG TAB 0952 LISINOPRIL (ZESTRIL) 20 MG PO BID 06/12/12 Strength: 20 MG TAB 2306 Current Hospital Medications: Electrolytic, Caloric, And Nash Sig/Melissa Start time Last Medication Dose Route Stop Time Status Admin Dextrose/Water 25 ML ASDIR PRN 11/07 0500 DCD (DEXTROSE 50%-WATER IV 12/07 0501 50 ML) Glucose Polymer 15 GM ASDIR PRN 11/07 0500 DCD (GLUTOSE) PO 12/07 0501 Sodium Chloride 1,000 ML .[id number] 11/07 0500 DC D 11/08 (SODIUM CHLORIDE IV 12/07 0501 0942 0.9% 1000 ML) Sodium Chloride 250 ML ASDIR PRN 11/06 2330 DCD (NORMAL SALINE 250 IV 12/06 2331 ML) Sodium Chloride 1,000 ML X1ED STA 11/06 1618 DC D 11/06 (SODIUM CHLORIDE IV 12/18 0817 1648 0.9% 1000 ML) Gastrointestinal Drugs Sig/Melissa Start time Last Medication Dose Route Stop Time Status Admin Ondansetron HCl 4 MG Q6H PRN PRN 11/07 0500 DCD (ZOFRAN) IV 12/07 0501 Hormones And Synthetic Substit Sig/Melissa Start time Last Medication Dose Route Stop Time Status Admin Glucagon 1 MG ASDIR PRN 11/07 0500 DCD (GLUCAGON) IM 12/07 0501 Insulin Human Lispro See Dose ASDIR PRN 11/07 0 500 DCD (HUMALOG) Insts (1) SUBQ 12/07 0501 Dose Instructions: (1)Insulin Human Lispro (HUMALOG): See Admin Criteria Allergies: Coded Allergies: No Known Allergies (06/12/12) Review of Systems Free Text ROS Notes Free Text ROS Notes: Reviewed per chart Objective Physical Exam VS: Last Documented: Result Date Time Pulse Ox 95 11/08 1738 B/P 129/79 11/08 1738 B/P Mean 95.5 11/08 1738 O2 Delivery Room air 11/08 1738 Temp 99.1 11/08 1738 Pulse 103 11/08 1738 Resp 17 11/08 1738 O2 Flow Rate [id number] 11/07 0602 General appearance: awake, no acute distress, co nversational, no respiratory distress Head/Eyes: atraumatic, normocephalic ENT: moist mucosal membranes, normal pharynx Neck: supple/no meningismus, no masses or swelli ng Cardiovascular: regular rate and rhythm Respiratory: no distress Abdomen: soft, no distention Extremities: moves all Musculoskeletal: normal inspection Neuro/CARRIER ASSOCIATE: alert, oriented X 4, normal speech, E JERMAINE, PERRL, CN II-XII intact, normal reflexes, no motor de ficits, no sensory deficits, no cerebellar deficits, Gait deferred Skin: dry, intact Results Findings/Data: Laboratory Tests 11/08 11/08 11/08 11/08 1617 1138 0803 0414 Chemistry Sodium (133 - 144 mmol/L) 137.0 Potassium (3.5 - 5.1 mmol/L) 3.6 Chloride (95 - 105 mmol/L) 104 Carbon Dioxide (21 - 32 mmol/L) 25 Anion Gap (4.0 - 15.0 GAP calc) 8.0 BUN (7 - 18 MG/DL) 17 Creatinine (0.55 - 1.30 MG/DL) 0.88 Glucose (70 - 110 MG/DL) 90 POC Glucose (70 - 119 MG/DL) 88 105 102 Calcium (8.5 - 10.1 MG/DL) 8.1 L Specimen Appearance (1 NORMAL Index/DL) 1 PABLO L <2 MG Specimen Hemolysis (1 NORMAL Index/DL) 1 NORMAL <10 MG 11/07 2115 Chemistry POC Glucose (70 - 119 MG/DL) 134 H Laboratory Tests 11/08 0414 Hematology WBC (4.1 - 12.1 K/mm3) 12.8 H RBC (3.8 - 5.5 M/mm3) 3.85 Hgb (10.6 - 15.8 G/DL) 11.2 Hct (31.8 - 47.4 %) 33.9 MCV (80.1 - 101.1 fL) 88.1 MCH (25.3 - 35.3 pg) 29.1 MCHC (32.7 - 35.1 G/DL) 33.0 RDW (12.2 - 16.4 %) 14.2 Plt Count (155 - 337 K/mm3) 321 MPV (6.8 - 11.2 fL) 9.3 Gran % (37.8 - 82.6 %) 71.7 Lymph % (Auto) (14.1 - 45.4 %) 21.0 Garfield % (Auto) (2.5 - 11.7 %) 5.5 Eos % (Auto) (0.0 - 6.2 %) 1.2 Baso % (Auto) (0.0 - 2.1 %) 0.2 Gran # (2.0 - 13.7 k/mm3) 9.21 Lymph # (Auto) (0.6 - 3.8 K/mm3) 2.69 Garfield # (Auto) (0.11 - 0.59 K/mm3) 0.71 H Eos # (Auto) (0.0 - 0.4 K/mm3) 0.15 Baso # (Auto) (0.0 - 0.1 K/mm3) 0.02 Immature Gran % (0.0 - 2.0 %) 0.4 Nucleated RBC % (0.0 - 1.0 /100WBC%) 0.0 Nucleated RBCs # (0.0 - 0.05 K/mm3) 0.00 Radiology Data: Recent Impressions: CAT SCAN - CT HEAD/BRAIN W/O CONT 11/07 223 Report Impression - Status: SIGNED Entered: 11/07/2018254 IMPRESSION: Unremarkable noncontrast head CT examination. Impression By: [email or web address] - Ayan Do M.D. Results: labs reviewed, vital signs stable, curr ent med profile rev'd Diagnosis, Assessment Plan Free Text A P: 43 yo F with above hx and pr esentation. Pt overdosed on her medications leading to toxic encephalopathy. Pt is now awake and res ponsive. Recommendations: -- Psych eval -- Hydration -- Tele -- Close monitoring and supportive care -- Sitter -- DVT/GI ppx -- Cont to address other medical issues Discussed w pt No further recommendations. Please call w sriram ons Thank you for the consult at 0601 RPT #:[id number] END OF REPORT 2018-11-08 14:58:00-00:00 [facility] ([facility] Hospitalist Discharge Summary REPORT#:[id number] REPORT STATUS: Signed DATE:11/08/18 TIME: 1458 PATIENT: YONATAN PHIPPS UNIT #: [id number] ROOM/BED: [address] : 77 AGE: 43 SEX: F ATTEND: Ernie Marquez MD ADM AUTHOR: Steph Marquez MD * ALL edits or amendments must be made on the [employer]/computer document * PCP PCP PCP: PCP: Dr Solomon Discharge to: as per psych team recommendati General Information Problem List/A P: 1. Suicide attempt by inadequate means Date of admission: Observation Start Date: 11/06/18 Date of admission: 11/07/18 Discharge date: 11/08/18 Admission diagnosis: AMS Suicide attempt by Drug OD Discharge diagnosis: AMS Suicide attempt by Drug OD Hospital course: [place]: This is a 43-year-old -[place] female with past medical history of bipolar dis order, impaired glucose tolerance. She was brought into the ER after a suicide attempt today. The patient took an excessive amount of pill in an attempt to kill h erself. She had a bad day and cannot do anything right. So, she took excessive amount of medication. The exact name and dose is not clear. The patient wa s later brought into the ER. She was later admitted for further evaluation. I nitially, the patient was stable, so there was discuss ion to transfer her to the psych facility, then the patient continued to have altered mental state. She went into deep sleep. maintaining her airway and arousable on deep stimuli. She was later planned to transfer to the floor for further management. HOSPITAL COURSE: 1. Overdose of medications, quantities unknown ( total 1 handful) seroquel, tegretol,vistaril,lexapro,ne urontin,zyprexa and zoloft . Monitored overnight.No acute events.Mentation back to baseline.Cleared by neurology .Obtundation sec to dug OD . medically cleared for psych eval 2. Diabetes mellitus. Continue home medication a nd insulin sliding scale. 3. Psychiatric disorder. Consulted pillowcase cutter. 4. Altered mental status. S/ P Neurology FU .Mentation back to baseline .No more w/u needed We will continue one is to one watch for suicida l ideation and attempt till cleared by psych . case d/w mother at bedside i n ER on 11/07 and with pt ,neurologist and CM on 11/08 medically cleared for DC disposition as per psych team recommendations Consultants: neurology Pt. condition on discharge: improved, stable Allergies: Allergies: No Known Allergies (Coded, 06/12/12) Med Rec Med Rec Discharge meds: Continue taking these medications: LISINOPRIL (ZESTRIL) 20 MG TAB 20 MILLIGRAM ORAL TWICE DAILY. HYDROCHLOROTHIAZIDE (HCTZ) 12.5 MG CAP 12.5 MILLIGRAM ORAL TWICE DAILY. TERBINAFINE (LamISIL) 250 MG TAB 250 MILLIGRAM ORAL DAILY. Comments: TK 1 T PO ONCE A DAY FOR 21 DAYS - SIG Obtained From Julio metFORMIN (GLUCOPHAGE) 1,000 MG TAB 1,000 MILLIGRAM ORAL TWICE DAILY. Comments: TK 1 T PO BID WITH MEALS - SIG Obtained From Dr Yates AMPHETAMINE/DEXTROAMPHETAMINE SALTS (ADDERALL) 2 0 MG TAB 20 MILLIGRAM ORAL DAILY. Comments: TK 1 T PO QD - SIG Obtained From Julio GABAPENTIN (NEURONTIN) 300 MG CAP 300 MILLIGRAM ORAL THREE TIMES A DAY. Comments: TK ONE C PO TID - SIG Obtained From Julio OLANZapine (ZyPREXA) 10 MG TAB 10 MILLIGRAM ORAL TWICE DAILY. Comments: TK 1 T PO BID - SIG Obtained From Julio PANTOPRAZOLE DR (PROTONIX) 40 MG TAB.DR 40 MILLIGRAM ORAL DAILY. SERTRALINE (ZOLOFT) 100 MG TAB 200 MILLIGRAM ORAL DAILY. Comments: TK 2 TS PO EACH MORNING - SIG Obtained From Jose F irst Discharge Instructions Diet: diabetic Oral fluid restriction: No Weight monitor: Not Required Activity: as tolerated Additional instructions: FU with psychiatrist JELANI Discharge management: greater than 30 mins Time spent: Time spent with pt: 35 minutes or more Follow-up Appointments PCP: PCP (free text): Dr Solomon Follow up timeframe: In 1-2 weeks Attending Physician: Attending Physician: Steph Marquez MD Objective General VS/I O: Vital Signs: Date Time Temp Pulse Resp B/P B/P Pulse O2 O2 F low FiO2 Mean Ox Delivery Rate 11/08 1139 37.0 103 18 135/78 96.8 96 Room air 11/08 0804 37.5 108 18 116/69 84.3 96 Room air 11/08 0344 37.0 107 18 123/69 86.9 95 11/07 2338 37.3 114 18 118/68 84.8 94 Room air 11/07 1943 37.0 115 18 124/81 95.2 94 Room air 11/07 1732 36.6 117 16 150/74 99.0 92 Room air 24 hour I O ending at 0700: 11/08 0700 11/07 1900 Intake Total 980 Output Total Balance 980 Intake, Oral 980 Number Voids 2 Patient 91 kg Weight Weight Not Applicable Measurement Method Medications: Active Meds + DC'd Last 24 Hrs Dextrose/Water 25 ML ASDIR PRN IV Glucagon 1 MG ASDIR PRN IM Glucose Polymer 15 GM ASDIR PRN PO Insulin Human Lispro See Admin Criteria ASDIR PRN SUBQ Ondansetron HCl 4 MG Q6H PRN PRN IV Sodium Chloride 1,000 ML .[id number] IV Sodium Chloride 250 ML ASDIR PRN IV Sodium Chloride 1,000 ML X1ED STA IV Physical Exam General appearance: alert, awake, oriented ENT: moist mucosal membranes Cardiovascular: normal heart sounds, regular rat e rhythm Respiratory: aerating well, clear to auscultatio n Abdomen: obese, non-tender, soft Genitourinary: no tejeda Extremities: moves all, no edema Neuro/CARRIER ASSOCIATE: alert, oriented X 3, normal speech, n o motor deficits, no sensory deficits Skin: no rash Lymphatics: no lymphadenopathy Results Findings/Data: Laboratory Tests 11/08 11/08 11/08 11/07 1138 0803 0414 2115 Chemistry Sodium (133 - 144 mmol/L) 137.0 Potassium (3.5 - 5.1 mmol/L) 3.6 Chloride (95 - 105 mmol/L) 104 Carbon Dioxide (21 - 32 mmol/L) 25 Anion Gap (4.0 - 15.0 GAP calc) 8.0 BUN (7 - 18 MG/DL) 17 Creatinine (0.55 - 1.30 MG/DL) 0.88 Glucose (70 - 110 MG/DL) 90 POC Glucose (70 - 119 MG/DL) 105 102 134 H Calcium (8.5 - 10.1 MG/DL) 8.1 L Specimen Appearance (1 NORMAL Index/DL) 1 PABLO L <2 MG Specimen Hemolysis (1 NORMAL Index/DL) 1 NORMAL <10 MG 11/07 1735 Chemistry POC Glucose (70 - 119 MG/DL) 96 Laboratory Tests 11/08 0414 Hematology WBC (4.1 - 12.1 K/mm3) 12.8 H RBC (3.8 - 5.5 M/mm3) 3.85 Hgb (10.6 - 15.8 G/DL) 11.2 Hct (31.8 - 47.4 %) 33.9 MCV (80.1 - 101.1 fL) 88.1 MCH (25.3 - 35.3 pg) 29.1 MCHC (32.7 - 35.1 G/DL) 33.0 RDW (12.2 - 16.4 %) 14.2 Plt Count (155 - 337 K/mm3) 321 MPV (6.8 - 11.2 fL) 9.3 Gran % (37.8 - 82.6 %) 71.7 Lymph % (Auto) (14.1 - 45.4 %) 21.0 Garfield % (Auto) (2.5 - 11.7 %) 5.5 Eos % (Auto) (0.0 - 6.2 %) 1.2 Baso % (Auto) (0.0 - 2.1 %) 0.2 Gran # (2.0 - 13.7 k/mm3) 9.21 Lymph # (Auto) (0.6 - 3.8 K/mm3) 2.69 Garfield # (Auto) (0.11 - 0.59 K/mm3) 0.71 H Eos # (Auto) (0.0 - 0.4 K/mm3) 0.15 Baso # (Auto) (0.0 - 0.1 K/mm3) 0.02 Immature Gran % (0.0 - 2.0 %) 0.4 Nucleated RBC % (0.0 - 1.0 /100WBC%) 0.0 Nucleated RBCs # (0.0 - 0.05 K/mm3) 0.00 Treatments Procedures Lab: Chemistry last 24 hrs: 11/08 0414 Chemistry Sodium (133 - 144 mmol/L) 137.0 Potassium (3.5 - 5.1 mmol/L) 3.6 Chloride (95 - 105 mmol/L) 104 BUN (7 - 18 MG/DL) 17 Creatinine (0.55 - 1.30 MG/DL) 0.88 Glucose (70 - 110 MG/DL) 90 Hematology last 24 hrs: 11/08 0414 Hematology WBC (4.1 - 12.1 K/mm3) 12.8 H Hgb (10.6 - 15.8 G/DL) 11.2 Hct (31.8 - 47.4 %) 33.9 Plt Count (155 - 337 K/mm3) 321 Imaging: Recent Impressions: CAT SCAN - CT HEAD/BRAIN W/O CONT 11/07 223 Report Impression - Status: SIGNED Entered: 11/07/2018 0255 IMPRESSION: Unremarkable noncontrast head CT examination. Impression By: Thanh - Ayan Do M.D. Electronically Signed by Steph Marquez MD on at 1502 RPT #:[id number] END OF REPORT 2018-11-08 14:46:00-00:00 [facility] ([facility]) Hospitalist Progress Note REPORT#:[id number] REPORT STATUS: Signed DATE:11/08/18 TIME: 1446 PATIENT: YONATAN PHIPPS UNIT #: [id number] ROOM/BED: [address] : 77 AGE: 43 SEX: F ATTEND: Ernie Marquez MD ADM AUTHOR: Steph Marquez MD * ALL edits or amendments must be made on the [employer] document * Subjective Chief Complaint: pt seen in room mentation back to baseline sitter at bedside Objective General VS/I O: Vital Signs: Date Time Temp Pulse Resp B/P B/P Pulse O2 O2 F low FiO2 Mean Ox Delivery Rate 11/08 1139 37.0 103 18 135/78 96.8 96 Room air 11/08 0804 37.5 108 18 116/69 84.3 96 Room air 11/08 0344 37.0 107 18 123/69 86.9 95 11/07 2338 37.3 114 18 118/68 84.8 94 Room air 11/07 1943 37.0 115 18 124/81 95.2 94 Room air 11/07 1732 36.6 117 16 150/74 99.0 92 Room air 24 hour I O ending at 0700: 11/08 0700 11/07 1900 Intake Total 980 Output Total Balance 980 Intake, Oral 980 Number Voids 2 Patient 91 kg Weight Weight Not Applicable Measurement Method Medications: Active Meds + DC'd Last 24 Hrs Dextrose/Water 25 ML ASDIR PRN IV Glucagon 1 MG ASDIR PRN IM Glucose Polymer 15 GM ASDIR PRN PO Insulin Human Lispro See Admin Criteria ASDIR PRN SUBQ Ondansetron HCl 4 MG Q6H PRN PRN IV Sodium Chloride 1,000 ML .[id number] IV Sodium Chloride 250 ML ASDIR PRN IV Sodium Chloride 1,000 ML X1ED STA IV Physical Exam General appearance: alert, awake, oriented ENT: moist mucosal membranes Cardiovascular: normal heart sounds, regular rat e rhythm Respiratory: aerating well, clear to auscultatio n Abdomen: obese, non-tender, soft Genitourinary: no tejeda Extremities: moves all, no edema Neuro/[employer] ASSOCIATE: alert, oriented X 3, normal speech, n o motor deficits, no sensory deficits Skin: no rash Lymphatics: no lymphadenopathy Results Findings/Data: Laboratory Tests 11/08 11/08 11/08 11/07 1138 0803 0414 2115 Chemistry Sodium (133 - 144 mmol/L) 137.0 Potassium (3.5 - 5.1 mmol/L) 3.6 Chloride (95 - 105 mmol/L) 104 Carbon Dioxide (21 - 32 mmol/L) 25 Anion Gap (4.0 - 15.0 GAP calc) 8.0 BUN (7 - 18 MG/DL) 17 Creatinine (0.55 - 1.30 MG/DL) 0.88 Glucose (70 - 110 MG/DL) 90 POC Glucose (70 - 119 MG/DL) 105 102 134 H Calcium (8.5 - 10.1 MG/DL) 8.1 L Specimen Appearance (1 NORMAL Index/DL) 1 PABLO L <2 MG Specimen Hemolysis (1 NORMAL Index/DL) 1 NORMAL <10 MG 11/07 1735 Chemistry POC Glucose (70 - 119 MG/DL) 96 Laboratory Tests 11/08 0414 Hematology WBC (4.1 - 12.1 K/mm3) 12.8 H RBC (3.8 - 5.5 M/mm3) 3.85 Hgb (10.6 - 15.8 G/DL) 11.2 Hct (31.8 - 47.4 %) 33.9 MCV (80.1 - 101.1 fL) 88.1 MCH (25.3 - 35.3 pg) 29.1 MCHC (32.7 - 35.1 G/DL) 33.0 RDW (12.2 - 16.4 %) 14.2 Plt Count (155 - 337 K/mm3) 321 MPV (6.8 - 11.2 fL) 9.3 Gran % (37.8 - 82.6 %) 71.7 Lymph % (Auto) (14.1 - 45.4 %) 21.0 Garfield % (Auto) (2.5 - 11.7 %) 5.5 Eos % (Auto) (0.0 - 6.2 %) 1.2 Baso % (Auto) (0.0 - 2.1 %) 0.2 Gran # (2.0 - 13.7 k/mm3) 9.21 Lymph # (Auto) (0.6 - 3.8 K/mm3) 2.69 Garfield # (Auto) (0.11 - 0.59 K/mm3) 0.71 H Eos # (Auto) (0.0 - 0.4 K/mm3) 0.15 Baso # (Auto) (0.0 - 0.1 K/mm3) 0.02 Immature Gran % (0.0 - 2.0 %) 0.4 Nucleated RBC % (0.0 - 1.0 /100WBC%) 0.0 Nucleated RBCs # (0.0 - 0.05 K/mm3) 0.00 Treatment Prophylaxis Treatment Prophylaxis Tejeda documentation: The data below has been impo rted from nursing documentation. Any exceptions have been noted below under Provider comments. _ Nursing Documentation Date tejeda inserted: Date tejeda discontinued: _ Provider comments: [] Diagnosis, Assessment Plan Free Text A P: 1. Overdose of medications, quantities unknown ( total 1 handful) seroquel, tegretol,vistaril,lexapro,ne urontin,zyprexa and zoloft . Monitored overnight.No acute events.Mentation back to baseline.Cleared by neurology .Obtundation sec to dug OD medically cleared for psych eval 2. Diabetes mellitus. Continue home medication a nd insulin sliding scale. 3. Psychiatric disorder. Consulted pillowcase cutter. 4. Altered mental status. S/ P Neurology FU .Mentation back to baseline .No more w/u needed We will continue one is to one watch for suicida l ideation and attempt. case d/w mother at bedside i n ER on 11/07 and with pt ,neurologist and CM on 11/08 medically cleared for DC disposition as per psych team recommendations Electronically Signed by Steph Marquez MD on at 1455 RPT #:[id number] END OF REPORT 2018-11-07 17:26:00-00:00 [facility] ([facility] Hospitalist Progress Note REPORT#:[id number] REPORT STATUS: Signed DATE:11/07/18 TIME: 1726 PATIENT: YONATAN PHIPPS UNIT #: [id number] ROOM/BED: [address] : 77 AGE: 43 SEX: F ATTEND: Ernie Marquez MD ADM AUTHOR: Steph Marquez MD * ALL edits or amendments must be made on the [employer] document * Subjective Chief Complaint: pt seen in ER mom at bedside Objective General VS/I O: Vital Signs: Date Time Temp Pulse Resp B/P B/P Pulse O2 O2 F low FiO2 Mean Ox Delivery Rate 11/07 1140 106 18 171/67 101 95 11/07 0820 37.0 113 18 143/69 93 97 11/07 0602 36.4 100 13 163/76 105 100 Nasal 2. 765942 cannula 11/07 0400 108 12 153/69 97 99 Nasal 2.344051 cannula 11/07 0300 114 11 169/67 101 99 Nasal 2.152361 cannula 11/07 0200 102 12 180/88 118 99 Nasal 2.797150 cannula 11/07 0100 106 11 166/90 115 100 Nasal 2.341331 cannula 11/07 0000 98 11 146/84 104 98 Nasal 2.977120 cannula 11/06 2300 106 13 140/90 106 96 Nasal 2.490743 cannula 11/06 2225 92 12 169/90 116 95 Room air 11/06 2040 36.4 101 18 128/82 97 98 Room air 11/06 1859 111 15 140/90 106 97 24 hour I O ending at 0700: 11/07 0700 11/06 1900 Intake Total Output Total Balance Patient 91 kg Weight Weight Stated/Reported Measurement Method Medications: Active Meds + DC'd Last 24 Hrs Dextrose/Water 25 ML ASDIR PRN IV Glucagon 1 MG ASDIR PRN IM Glucose Polymer 15 GM ASDIR PRN PO Insulin Human Lispro See Admin Criteria ASDIR PRN SUBQ Ondansetron HCl 4 MG Q6H PRN PRN IV Sodium Chloride 1,000 ML .[id number] IV Sodium Chloride 250 ML ASDIR PRN IV Potassium Chloride 40 MEQ X1ED STA PO (DC) Potassium Chloride 40 MEQ X1ED STA PO (CAN) Sodium Chloride 1,000 ML X1ED STA IV Physical Exam General appearance: sleeping comfortably ENT: moist mucosal membranes Cardiovascular: normal heart sounds, regular rat e rhythm Respiratory: aerating well, clear to auscultatio n Abdomen: obese, non-tender, soft Genitourinary: no tejeda Extremities: moves all, no edema Results Findings/Data: Laboratory Tests 11/07 11/06 11/06 11/06 0557 2100 2037 1738 Chemistry Potassium (3.5 - 5.1 mmol/L) 3.8 POC Glucose (70 - 119 MG/DL) 118 139 H Ammonia (11.0 - 32.0 mcMOL/L) 29.0 Radiology data: Recent Impressions: CAT SCAN - CT HEAD/BRAIN W/O CONT 11/07 223 Report Impression - Status: SIGNED Entered: 11/07/2018 0255 IMPRESSION: Unremarkable noncontrast head CT examination. Impression By: [email or web address] - Ayan Do M.D. Treatment Prophylaxis Treatment Prophylaxis Tejeda documentation: The data below has been impo rted from nursing documentation. Any exceptions have been noted below under Provider comments. _ Nursing Documentation Date tejeda inserted: Date tejeda discontinued: _ Provider comments: [] Diagnosis, Assessment Plan Free Text A P: 1. Overdose of medications, not known which one. We will continue to monitor. We will continue IV fluids. We will continue tel emetry. Watch for QT interval prolongation. Monitor electrolytes and replace. 2. Diabetes mellitus. Continue home medication a nd insulin sliding scale. 3. Psychiatric disorder. Consulted pillowcase cutter. 4. Altered mental status. Neurology to follow .W e will continue one is to one watch for suicidal ideation and attempt. case d/w mother at bedside in ER Electronically Signed by Steph Marquez MD on at 1728 RPT #:[id number] END OF REPORT 2018-11-07 05:05:00-00:[address] [facility] ([facility]) Admit Note - Brief REPORT#:[id number] REPORT STATUS: Signed DATE:11/07/18 TIME: 0505 PATIENT: YONATAN PHIPPS UNIT #: [id number] ROOM/BED: [place] [address] : 77 AGE: 43 SEX: F ATTEND: Bridger Navarro ADM AUTHOR: Bridger Navarro MD * ALL edits or amendments must be made on the [employer]computer document * History - Adult longitudinal Allergies: Coded Allergies: No Known Allergies (06/12/12) Impression/Plan of Care Free Text A P: [id number] BEFORE MN Electronically Signed by Bridger Navarro MD on 9 at 0505 RPT #:[id number] END OF REPORT 2018-11-07 05:05:00-00:00 [id number] [address] PATIENT NAME: YONATAN PHIPPS ADMIT DATE: ACCOUNT NO: [id number] ROOM NO: [facility] AGE: 43 REPORT TYPE: HISTORY AND PHYSICAL SEX: F ADMITTING PHYSICIAN:Steph Marquez MD ATTENDING PHYSICIAN:Steph Marquez MD ADMISSION DATE: 11/06/2018 PRIMARY CARE PHYSICIAN: Not known. History is mostly from chart. The patient is not a good historian. PRESENTING COMPLAINT: Suicidal attempt. HISTORY OF PRESENTING COMPLAINT: This is a 43-year-old -Australian female with past medical history of bipolar dis order, impaired glucose tolerance. She was brought into the ER after a suicide attempt today. The patient took an excessive amount of pill in an attempt to kill h erself. She had a bad day and cannot do anything right. So, she took excessive amount of medication. The exact name and dose is not clear. The patient wa s later brought into the ER. She was later admitted for further evaluation. I nitially, the patient was stable, so there was discuss ion to transfer her to the psych facility, then the patient continued to have altered mental state. She went into deep sleep. maintaining her airway and arousable on deep stimuli. She was later planned to transfer to the floor for further management. REVIEW OF SYSTEMS: Not available because of the patient's mental condition. ALLERGIES: NO KNOWN DRUG ALLERGIES. MEDICATIONS: Hydrochlorothiazide, metformin, josé apentin, Adderall, Protonix, sertraline, and lisinopril. PAST MEDICAL HISTORY: Depres narciso, diabetes, hypertension, and seizure disorder. PAST SURGICAL HISTORY: Not available. SOCIAL HISTORY: Positive for smoking. No history of drugs or alcohol. FAMILY HISTORY: Not known. PHYSICAL EXAMINATION: GENERAL: The patient lying in bed, not in acute distress, in deep sleep, but arousable. VITAL SIGNS: Temperature 36.4, pulse 108, respir atory rate 12, blood pressure 153/69, pulse ox 99%. HEENT: Atraumatic, normocephalic. Pupils equal. NECK: Supple. PATIENT NAME: YONATAN PHIPPS ACCOUNT #: [id number] CHEST: Bilateral air entry. No wheeze, no rales. CARDIOVASCULAR: S1, S2 audible. No murmur, rub, or gallop. ABDOMEN: Soft, nontender. No rebound, no guardin g, no organomegaly. Bowel sounds positive. CENTRAL NERVOUS SYSTEM: Deep sleep, but arousabl e. EXTREMITIES: No edema. SKIN: No rashes. ENDOCRINE: No thyromegaly. LABORATORY AND DIAGNOSTIC DATA: Potassium 3.8, g lucose 139. Ammonia 29. WBC 9.1, hemoglobin 12.7, and platelets 394. Urine n egative for infection. Urine hCG negative. Initial potassium was 3.1. LFTs wi thin normal limit. Salicylates less than 1.7. Opiates none detected. Barbiturates, none detected. Other illicit drugs are negative. Ethyl alcohol less than 3. CT head negative. ASSESSMENT AND PLAN: 1. Overdose of medications, not known which one. We will continue to monitor. We will continue IV fluids. We will continue tel emetry. Watch for QT interval prolongation. Monitor electrolytes and replace. 2. Diabetes mellitus. Continue home medication a nd insulin sliding scale. 3. Psychiatric disorder. Consult pillowcase cutter. 4. Altered mental status. Neurology will also be consulted for further evaluation. We will continue one is to one watch for suicidal ideation and attempt. Condition discussed with Dr. Ramsey in [facility] with the RN, questions are answered. Advance directive discussed. Dictated By: Bridger Navarro MD WT: HP:ROHAN/SHAUN/PERLITA Conf#: [id number]/DID#: [id number] Authenticated by Bridger Navarro MD On 11/08/2018 06:2 2:22 AM Electronically Signed by Bridger Navarro MD on at 0622 PATIENT NAME: YONATAN PHIPPS ACCOUNT #: [id number]
--- NOTE | 2023-05-16 16:06 | EDPHYS ---
Physician Documentation [facility] Name: Olga Pham Age: 47 yrs Sex: Female : 1975 Arrival Date: 05/16/2023 Time: 15:22 Bed 11 Private MD: ED Physician Yovani Dior HPI: 05/16 16:07 This 47 yrs old Black Female presents to ER via Ambulatory with complaints of Finger rt Injury - right hand ring finger. 16:07 Patient presents to the ED with a wound to the right fourth digit. Patient states that rt she was working a aric when it slipped, hitting her hand. She reports having a laceration was not primarily repaired to that area. Was referred to wound care. Eventually, she was found to have an avulsion fracture. Sent for wound care. She states that she tried to go to wound care today but did not have a referral from her primary care provider, therefore, due to insurance issues was unable to get seen. Patient states that her primary care is out of town for these few weeks, is unable to get a referral. Symptoms are mild in severity, no other aggravating or alleviating factors.. Historical: - Allergies: 15:37 trazodone; iw 15:37 Depakote; iw - PMHx: 15:37 Anxiety; Bipolar disorder; Diabetes - NIDDM; High Cholesterol; Hypertension; Migraines; iw Seizures; ADHD/ADD; 15:39 Asthma; iw - PSHx: 15:37 Stented artery; Partial hysterectomy; iw - Immunization history:: Client reports receiving the 2nd dose of the Covid vaccine. - Social history:: Smoking status: Patient denies any tobacco usage or history of. - Family history:: not pertinent. ROS: 16:07 Constitutional: Negative for fever, chills, and weight loss, Cardiovascular: Negative rt for chest pain, palpitations, and edema, Respiratory: Negative for shortness of breath, cough, wheezing, and pleuritic chest pain, Abdomen/GI: Negative for abdominal pain, nausea, vomiting, diarrhea, and constipation, Neuro: Negative for headache, weakness, numbness, tingling, and seizure. 16:07 MS/extremity: Positive for Wound, pain. Exam: 16:07 Constitutional: This is a well developed, well nourished patient who is awake, alert, rt and in no acute distress. Head/Face: Normocephalic, atraumatic. Neuro: Awake and alert, GCS 15, oriented to person, place, time, and situation. Cranial nerves II-XII grossly intact. Motor strength 5/5 in all extremities. Sensory grossly intact. Cerebellar exam normal. Normal gait. 16:07 Musculoskeletal/extremity: Chronic appearing wound to palmar aspect of the right fourth MCP. No purulent drainage noted. No surrounding erythema. No focal areas of tenderness. Capillary refill is intact.. Vital Signs: 15:33 Pulse 81; Resp 17; Temp 98.1(TE); Pulse Ox 100% ; Weight 113.4 kg; Height 6 ft. 0 in. ; iw Pain 8/10; 15:33 Body Mass Index 33.91 (113.40 kg, 182.88 cm) iw 15:33 Pain Scale: Adult iw MDM: 15:43 Patient medically screened. rt 16:07 Differential diagnosis: Chronic wound, cellulitis, wound infection. Data reviewed: rt vital signs, nurses notes. Management of patient was discussed with the following: Events Assistant: Discussed with Dr. Prather, states that there is nothing that he can do due to the insurance, says the patient may follow-up with hand surgery as a better alternative given possible fracture involvement.. Test considered but Not performed: Labs: No clinical evidence to suggest infection, labs not indicated. Counseling: I had a detailed discussion with the patient and/or guardian regarding the historical points, exam findings, and any diagnostic results supporting the discharge/admit diagnosis, the need for outpatient follow up. Administered Medications: No medications were administered Disposition Summary: 05/16/23 16:05 Discharge Ordered Location: Home rt Problem: an ongoing problem rt Symptoms: are unchanged rt Condition: Stable rt Diagnosis - Wound to right fourth digit rt Followup: rt - With: Jorge Wyatt MD - When: 7 - 10 days - Reason: Discharge Instructions: - Discharge Summary Sheet rt - Wound Care, Adult rt Forms: - Medication Reconciliation Form rt - Thank You Letter rt - Antibiotic Education rt - Prescription Opioid Use rt - Patient Portal Instructions rt - Leadership Thank You Letter rt Signatures: Sandra Petit RN RN iw Yovani Dior MD MD rt
--- NOTE | 2023-05-16 16:06 | ER ---
Nurse's Notes [facility] Name: Olga Pham Age: 47 yrs Sex: Female : 1975 Arrival Date: 05/16/2023 Time: 15: Bed 11 Private MD: Diagnosis: Wound to right fourth digit Presentation: 05/16 15:33 Chief complaint: Patient states: Right 4th finger laceration/injury that is not iw healing, happened April 12. Been at a couple emergency rooms, was at urgent care on the , told she had a fracture and to follow up with wound care/ortho. No appointments until the end of May. Coronavirus screen: Vaccine status: Patient reports receiving the 2nd dose of the covid vaccine. Ebola Screen: Patient denies travel to an Ebola-affected area in the 21 days before illness onset. Initial Sepsis Screen: Does the patient meet any 2 criteria? No. Patient's initial sepsis screen is negative. Does the patient have a suspected source of infection? No. Patient's initial sepsis screen is negative. Risk Assessment: Do you want to hurt yourself or someone else? Patient reports no desire to harm self or others. Onset of symptoms was April 12, 2023. 15:33 Method Of Arrival: Ambulatory iw 15:33 Acuity: FRANCIS 4 iw Triage Assessment: 16:43 General: Appears in no apparent distress. comfortable, Behavior is calm, cooperative. cm10 Pain: Complains of pain in palmar aspect of proximal phalanx of right ring finger. Neuro: No deficits noted. Level of Consciousness is awake, alert, obeys commands, Oriented to person, place, time, situation. Respiratory: No deficits noted. Airway is patent Respiratory effort is even, unlabored, Respiratory pattern is regular, symmetrical. Musculoskeletal: Wound to 4th digit. Injury Description: Laceration sustained to palmar aspect of proximal phalanx of right ring finger was sustained 1 month no active bleeding noted at this time. Historical: - Allergies: 15:37 trazodone; iw 15:37 Depakote; iw - PMHx: 15:37 Anxiety; Bipolar disorder; Diabetes - NIDDM; High Cholesterol; Hypertension; Migraines; iw Seizures; ADHD/ADD; 15:39 Asthma; iw - PSHx: 15:37 Stented artery; Partial hysterectomy; iw - Immunization history:: Client reports receiving the 2nd dose of the Covid vaccine. - Social history:: Smoking status: Patient denies any tobacco usage or history of. - Family history:: not pertinent. Screenin:45 [facility] ED Fall Risk Assessment (Adult) History of falling in the last 3 months, cm10 including since admission No falls in past 3 months (0 pts) Confusion or Disorientation No (0 pts) Intoxicated or Sedated No (0 pts) Impaired Gait No (0 pts) Mobility Assist Device Used No (0 pt) Altered Elimination No (0 pt) Score/Fall Risk Level 0 - 2 = Low Risk Oriented to surroundings, Maintained a safe environment. Abuse screen: Denies threats or abuse. Denies injuries from another. Nutritional screening: No deficits noted. Tuberculosis screening: No symptoms or risk factors identified. Assessment: 16:45 Reassessment: See triage assessment. cm10 Vital Signs: 15:33 Pulse 81; Resp 17; Temp 98.1(TE); Pulse Ox 100% ; Weight 113.4 kg; Height 6 ft. 0 in. ; iw Pain 8/10; 15:33 Body Mass Index 33.91 (113.40 kg, 182.88 cm) iw 15:33 Pain Scale: Adult ED Course: 15:25 Patient arrived in ED. im 15:37 Triage completed. iw 15:39 Arm band placed on right wrist. iw 15:41 Yovani Dior MD is Attending Physician. rt 16:05 Jorge Wyatt MD is Referral Physician. rt 16:45 Patient has correct armband on for positive identification. Provided Education on: N/A. cm10 16:45 No provider procedures requiring assistance completed. Patient did not have IV access cm10 during this emergency room visit. Administered Medications: No medications were administered Medication: 16:45 VIS not applicable for this client. cm10 Outcome: 16:05 Discharge ordered by . rt 16:45 Discharged to home ambulatory, with family. cm10 16:45 Condition: good 16:45 Discharge instructions given to patient, Instructed on discharge instructions, follow up and referral plans. Demonstrated understanding of instructions, follow-up care. 16:46 Patient left the ED. cm10 Signatures: Sandra Petit RN RN iw Yovani Dior MD MD rt Solange Florence im Ana Prather RN RN cm10
[2023-05-16 16:50] VITALS: TEMP 98.1; O2SAT 100
== END 2023-05-16 16:46 | disposition home or self-care (01) ==
LOC: ER 15:22
DX: S61.214A Laceration without foreign body of right ring finger without damage to nail, initial encounter (principal)